=== PATIENT | male | born 1945 | race Caucasian/White ===

== ENCOUNTER 2018-11-03 11:33 | Inpatient (IN) ==
[~2018-11-03 11:33] MED LIST: NARCAN ONE
[2018-11-03] MEDS ORDERED: QUELICIN ONE (11:37)
[2018-11-03 12:09] LABS: URINE SOURCE CATH
[2018-11-03 12:21] LABS: ALLEN TEST YES; BE 14.6 mmoll (-3.0-3.0); BLOOD TYPE ARTERIAL; HCO3-(ACT) 36.3 mmoll (20.0-26.0); METHB 0.6 % (0.0-1.5); O2(CT) 17.6 mL/dL (15.0-23.0); O2HB 95.1 % (95.0-99.0); PO2(98.6) 95 mmHg (60-100); SAMPLE BLOOD; SAO2 97.5 % (95.0-100.0); SRATE 18 BPM; THB 13.1 g/dL (11.5-17.4); TVOL 500 mL
[2018-11-03 12:23] LABS: MODALITY VENTILATOR; PCO2(98.6) 92 mmHg (35-45)
[2018-11-03] MEDS ORDERED: DIPRIVAN 1% 1,000 MG/100 ML BOTTLE IV SCH (12:30)
[2018-11-03 12:31] LABS: BILIRUBIN URINE NEGATIVE (NEGATIVE); BLOOD URINE SMALL (NEGATIVE); COLOR YELLOW; GLUCOSE URINE NEGATIVE (NEGATIVE); KETONE URINE NEGATIVE (NEGATIVE); LEUKOCYTES URINE NEGATIVE (NEGATIVE); NITRITE URINE NEGATIVE (NEGATIVE); PROTEIN URINE 600 mg/dL (NEGATIVE); TURBIDITY URINE CLEAR (CLEAR); UROBILINOGEN URINE 2 mg/dL (NORMAL)
[2018-11-03 12:32] LABS: UR EPITHELIAL CELLS <10 /HPF (<10); URINE BACTERIA NEGATIVE /HPF; URINE RBC <10 /HPF (<10); URINE WBC <10 /HPF (<10)
[2018-11-03 12:32] LABS: INR 1.08; PROTIME 14.8 Seconds (11.0-16.0)
[2018-11-03 12:35] LABS: BASO# 0.02 X1000 (0.0-0.2); BASO% 0.2 % (0.0-0.8); HEMATOCRIT 46.8 % (42.0-52.0); HEMOGLOBIN 13.2 g/dL (14.0-18.0); IMM GRAN# 0.11 X1000 (0.0-0.04); IMM GRAN% 0.9 % (0.0-0.5); LYMPH# 0.39 X1000 (1.2-3.4); LYMPH% 3.2 % (20.5-51.1); MCH 30.1 PG (27-31); MCHC 28.2 g/dL (33-37); MCV 106.6 FL (81-99); MONO# 0.71 X1000 (0.11-0.59); MONO% 5.9 % (1.7-9.3); MPV 10.8 FL (7.4-10.4); NEUT# 10.82 X1000 (1.4-6.5); NEUT% 89.8 % (42.2-75.2); PLT 169 X1000 (130-400); RBC 4.39 XMIL (4.7-6.1); RDW 15.6 % (11.5-14.5); WBC 12.05 X1000 (4.8-10.8)
[2018-11-03 12:49] LABS: UR AMPHETAMINES QUAL NONE DETECTED (NONE DETECT); UR BARBITUATES QUAL NONE DETECTED (NONE DETECT); UR BENZODIAZEPIN QUAL NONE DETECTED (NONE DETECT); UR CANNABINOIDS QUAL NONE DETECTED (NONE DETECT); UR COCAINE QUAL NONE DETECTED (NONE DETECT); UR METHADONE QUAL NONE DETECTED (NONE DETECT); UR OPIATES QUAL NONE DETECTED (NONE DETECT); UR OXYCODONE QUAL NONE DETECTED (NONE DETECT); UR PCP QUAL NONE DETECTED (NONE DETECT)
--- NOTE | 2018-11-03 13:10 | Diag Imaging Result Doc PS360 ---
EXAM: CT HEAD W/O CONTRAST INDICATION: altered mental status TECHNIQUE: This exam was performed using automated exposure control, adjustment of mA or kV according to patient size, and/or use of iterative reconstruction technique. COMPARISON: None. FINDINGS: There is right frontal lobe encephalomalacia underlying a craniotomy defect. There are aneurysm clips at the base of the skull. There is no definite acute infarct given the limited sensitivity of CT versus MRI. There is no discrete intracranial mass, mass effect, or intracranial hemorrhage. There is minimal ethmoid sinus mucosal thickening. Surrounding soft tissues and bony structures are essentially unremarkable, otherwise. IMPRESSION: Chronic changes as described. No definite acute intracranial pathology. Electronically signed by Bob Sainz 11/03/2018 1:08 PM
--- NOTE | 2018-11-03 13:13 | Diag Imaging Result Doc PS360 ---
EXAM: CHEST/ABD TUBE PLACEMENT INDICATION: intubated patient TECHNIQUE: 2 views COMPARISON: 06/18/2016 FINDINGS: An ET tube is in place. The tip projecting over the trachea and above the beatrice at about the T3-4 level. There is also an NG tube in place. The tip projects below the diaphragm and is assumed to be in the lumen of the stomach in expected position. Central vasculature is prominent suggesting pulmonary venous congestion. There are also bilateral small effusions. No pneumothorax is identified. There is stable cardiomegaly. IMPRESSION: 1.ET tube and NG tube in place as described. 2.Suggestion of pulmonary venous congestion and bilateral small effusions. Electronically signed by Bob Sainz 11/03/2018 1:11 PM
[2018-11-03 14:18] LABS: ALB/GLOB RATIO 0.9; ALBUMIN 3.6 g/dL (3.5-5.0); CREATININE 1.2 mg/dL (0.7-1.2); MAGNESIUM 2.2 mg/dL (1.5-2.7); POTASSIUM 5.3 mmol/L (3.5-5.1); TOTAL BILIRUBIN 1.1 mg/dL (0.20-1.00); TOTAL PROTEIN 7.8 g/dL (6.3-8.3)
[2018-11-03] MEDS ORDERED: VANCOMYCIN 1 GM/NS 1 GM/250 ML IVPB IV ONE (14:46)
[2018-11-03] MEDS ORDERED: ZOSYN 3.375 GM in NS 50 ML IV ONE (14:46)
--- NOTE | 2018-11-03 14:46 | PROVIDER DOCUMENTATION ---
This chart was entered by Dipika Dacosta Scribe, acting as scribe for Julio Escudero MD. HPI-Critical Care - General Chief Complaint: Unresponsive Stated Complaint: unresponsive Time Seen by Provider: 11/03/18 11:45 Patient arrived via EMS?: Yes Source: EMS (first response) Allergies/Adverse Reactions: Allergies Allergy/AdvReac Type Severity Reaction Status Date / Time No Known Allergies Allergy Verified 06/05/16 14:15 Home Medications: Home Medication List Medication Instructions Recorded Confirmed Last Taken Type Albuterol Sulfate [Proair Hfa] 8.5 gm IH Q4H PRN PRN 09/22/15 08/17/16 06/05/16 08:00 History Atorvastatin Calcium [Lipitor] 20 mg PO QAM 09/22/15 08/17/16 08/17/16 06:30 History Cyanocobalamin (Vitamin B-12) 1,000 mcg IJ Q30D 09/22/15 08/17/16 08/16/16 08: 00 History [Cyanocobalamin Injection] Insulin Glargine [Lantus] 57 unit SUBQ QAM 09/22/15 08/17/16 08/17/16 History Insulin Lispro [Humalog] 20 unit SQ DIRECTED 09/22/15 08/17/16 08/17/16 06: 00 History Levothyroxine [Synthroid] 50 microgm PO DAILY 09/22/15 08/17/16 08/17/16 06:30 History Mometasone/Formoterol [Dulera 200 2 puff INH BID 09/22/15 08/17/16 08/17/16 06: 30 History Mcg/5 Mcg Inhaler] Montelukast Sodium 10 mg PO QAM 09/22/15 08/17/16 08/17/16 06:30 History Tiotropium [place] Inhaler 1 puff INH RTDAILY 09/22/15 08/17/16 08/17/16 06:30 History [Spiriva] Valacyclovir HCl [Valacyclovir] 500 mg PO DAILY 06/10/16 08/17/16 08/17/16 06: 30 History Bacitracin Oph Oint 3.5 gm IO PRN PRN 06/12/16 08/17/16 Unknown History Apixaban [Eliquis] 5 mg PO BID #60 tablet 06/22/16 08/17/16 Unknown Rx Digoxin [Lanoxin] 250 microgm PO DAILY #30 tablet 06/22/16 08/17/16 08/17/16 06: 30 Rx Diltiazem C.d. [Cardizem Cd] 240 mg PO DAILY #30 capsule 06/22/16 08/17/1608/17 06:30 Rx Docusate Sodium [Colace] 100 mg PO BID #60 capsule 06/22/16 08/17/16 08/17/16 06 :30 Rx Furosemide [Lasix] 20 mg PO BID #60 tablet 06/22/16 08/17/16 08/17/16 01:00 Rx Hydrocodone/APAP 5 mg/325 mg 1 each PO HS PRN PRN #30 tablet 06/22/16 08/17/16 Unknown Rx [[place]-5] Metoprolol Succinate E.r. [Toprol 25 mg PO BID #60 tablet 06/22/16 08/17/16 06:30 Rx Xl] Ramipril [Altace] 10 mg PO BID #60 capsule 06/22/16 08/17/16 08/17/16 06:30 Rx Aspirin/Calcium Carbonate/Mag 81 mg PO QAM #0 08/17/16 08/17/16 08/17/16 06:30 Rx [Aspirin Non Irrit 325 mg Tab] - History of Present Illness-Critical Care Nature of Presenting Problem: 73 yom presents via ems with cc of unresponsive. In early jason, spouse had to increase the Oxygen for patient who uses home O2 due to advanced copd. Later in the morning found pt unresponsive and called. EMS reported pt pupils were unequal. On arrival pt pupils were equally pinpoint and pt was obtunded.. 2mg narcan was admininstered on arrival by ed nurse without improvement Review of Systems - Adult - REVIEW OF SYSTEMS - ADULT ROS:: EMS Constitutional: reports: other (unresponsive) Eyes: reports: no symptoms reported Ears, Nose, Mouth & Throat: reports: no symptoms reported Cardiovascular: reports: no symptoms reported Respiratory: reports: no symptoms reported Gastrointestinal: reports: no symptoms reported Genitourinary: reports: no symptoms reported Musculoskeletal: reports: no symptoms reported Integumentary: reports: no symptoms reported Neurological: reports: other (unresponsive) Psychiatric: reports: no symptoms reported Endocrine: reports: no symptoms reported Hematologic/Lymphatic: reports: no symptoms reported Allergic/Immunologic: reports: no symptoms reported All Other Systems: Reviewed and Negative Past History - Adult - PAST MEDICAL HISTORY-ADULT Review of Records: reports: Nursing Assessment Review, Medications Reviewed Major Childhood Illnesses: reports: denies history Cardiovascular: reports: HTN, hyperlipidemia Endocrine/Immune: reports: Diabetes - IMMUNIZATION STATUS Childhood Immunizations: See Nurse Assessment Flu Vaccine: See Nurse Assessment - FAMILY HISTORY Family History: reviewed, not pertinent - SOCIAL HISTORY Smoking: other (n/a) Substance Use: other (unknown) Physical Exam-General - PHYSICAL EXAM-ADULT Initial Vital Signs Reviewed: Yes - CONSTITUTIONAL General Appearance: severe distress, obese, obtunded. negative: appears well, alert - EYES Eyes: other (pinpoint pupils) - RESPIRATORY Respiratory: other (decreased bs bilaterally) - CARDIOVASCULAR Cardiovascular: regular rate, rhythm - GASTROINTESTINAL (ABDOMEN) Abdominal Exam: normal bowel sounds, soft, no organomegaly, no pulsatile mass - MUSCULOSKELETAL Extremity: other (bilaterally 2+ edema lower extremeities) - SKIN Integumentary: other ( hyperpigmentation with induration in both legs related to chronic venous stasis) - NEUROLOGIC Neurologic: other (unresponsive) - PSYCHIATRIC Psych/Mental Status: other (unresponsive). negative: normal mood/affect, oriented x 3 Progress - PLAN OF CARE/RESULTS Progress/Plan/Lab Results: Vital Signs - 8 hr 11/03/18 11:32 11/03/18 11:43 11/03/18 12:06 Pulse Rate 105 H 112 H 102 H Respiratory Rate 24 16 34 H Blood Pressure 127/92 147/95 127/92 O2 Sat by Pulse Oximetry 98 100 96 11/03/18 12:16 Pulse Rate 102 H Respiratory Rate 25 H Blood Pressure O2 Sat by Pulse Oximetry 95 Laboratory Results - last 24 hr 11/03/18 11/03/18 11/03/18 11:50 11:50 11:50 WBC 12.05 H RBC 4.39 L Hgb 13.2 L Hct 46.8 MCV 106.6 H MCH 30.1 MCHC 28.2 L RDW Std Deviation 15.6 H Plt Count 169 MPV 10.8 H Immature Gran % (Auto) 0.9 H Neut % (Auto) 89.8 H Lymph % (Auto) 3.2 L George % (Auto) 5.9 Eos % (Auto) 0.0 Baso % (Auto) 0.2 Immature Gran # (Auto) 0.11 H Neut # (Auto) 10.82 H Lymph # (Auto) 0.39 L George # (Auto) 0.71 H Eos # (Auto) 0.00 Baso # (Auto) 0.02 PT 14.8 INR 1.08 PTT (Actin FS) 36.0 Specimen Type Sample Site pH pCO2 pO2 HCO3 Base Excess Oxyhemoglobin ABG O2 Sat (Calculated) ABG O2 Saturation ABG Carboxyhemoglobin ABG Methemoglobin Antony Test A-a O2 Difference Total Hemoglobin Lactate Blood Gas Modality Vent Mode Spontaneous Rate FiO2 % Tidal Volume PEEP Sodium Potassium Chloride Carbon Dioxide Anion Gap BUN Creatinine Estimated GFR/1.73 m2 BUN/Creatinine Ratio Glucose Calculated Osmolality Calcium Magnesium Total Bilirubin AST ALT Alkaline Phosphatase Ammonia Creatine Kinase Troponin T Awj-D-Jnsyavtwqee Pept Total Protein Albumin Globulin Albumin/Globulin Ratio Plasma Lactate 1.1 Urine Source Urine Color Urine Turbidity Urine pH Ur Specific [place] Urine Protein Ur Glucose (Stick) Ur Ketones (Stick) Urine Blood Urine Nitrite Urine Bilirubin Urobilinogen Dipstick Urine Leukocytes Urine WBC (Auto) Urine RBC (Auto) U Epithel Cells (Auto) Urine Bacteria (Auto) Urine Opiates Screen Ur Oxycodone Screen Ur Methadone, Qual Ur Barbiturates Screen Ur Phencyclidine Scrn Ur Amphetamines Screen U Benzodiazepines Scrn Urine Cocaine Screen U Cannabinoids Screen 11/03/18 11/03/18 11/03/18 11:50 11:50 12:00 WBC RBC Hgb Hct MCV MCH MCHC RDW Std Deviation Plt Count MPV Immature Gran % (Auto) Neut % (Auto) Lymph % (Auto) George % (Auto) Eos % (Auto) Baso % (Auto) Immature Gran # (Auto) Neut # (Auto) Lymph # (Auto) George # (Auto) Eos # (Auto) Baso # (Auto) PT INR PTT (Actin FS) Specimen Type Sample Site pH pCO2 pO2 HCO3 Base Excess Oxyhemoglobin ABG O2 Sat (Calculated) ABG O2 Saturation ABG Carboxyhemoglobin ABG Methemoglobin Antony Test A-a O2 Difference Total Hemoglobin Lactate Blood Gas Modality Vent Mode Spontaneous Rate FiO2 % Tidal Volume PEEP Sodium Potassium Chloride Carbon Dioxide Anion Gap BUN Creatinine Estimated GFR/1.73 m2 BUN/Creatinine Ratio Glucose Calculated Osmolality Calcium Magnesium Total Bilirubin AST ALT Alkaline Phosphatase Ammonia Creatine Kinase Troponin T 0.012 Qob-C-Ikmhhjroujt Pept 2106 H Total Protein Albumin Globulin Albumin/Globulin Ratio Plasma Lactate Urine Source CATH Urine Color YELLOW Urine Turbidity CLEAR Urine pH 6.0 Ur Specific [place] 1.020 Urine Protein 600 A Ur Glucose (Stick) NEGATIVE Ur Ketones (Stick) NEGATIVE Urine Blood SMALL A Urine Nitrite NEGATIVE Urine Bilirubin NEGATIVE Urobilinogen Dipstick 2 A Urine Leukocytes NEGATIVE Urine WBC (Auto) <10 Urine RBC (Auto) <10 U Epithel Cells (Auto) <10 Urine Bacteria (Auto) NEGATIVE Urine Opiates Screen Ur Oxycodone Screen Ur Methadone, Qual Ur Barbiturates Screen Ur Phencyclidine Scrn Ur Amphetamines Screen U Benzodiazepines Scrn Urine Cocaine Screen U Cannabinoids Screen 11/03/18 11/03/18 11/03/18 12:00 12:10 13:40 WBC RBC Hgb Hct MCV MCH MCHC RDW Std Deviation Plt Count MPV Immature Gran % (Auto) Neut % (Auto) Lymph % (Auto) George % (Auto) Eos % (Auto) Baso % (Auto) Immature Gran # (Auto) Neut # (Auto) Lymph # (Auto) George # (Auto) Eos # (Auto) Baso # (Auto) PT INR PTT (Actin FS) Specimen Type ARTERIAL Sample Site R RADIAL pH 7.30 L pCO2 92 H* pO2 95 HCO3 36.3 H Base Excess 14.6 H Oxyhemoglobin 95.1 ABG O2 Sat (Calculated) 17.6 ABG O2 Saturation 97.5 ABG Carboxyhemoglobin 1.90 ABG Methemoglobin 0.6 Antony Test YES A-a O2 Difference 147.0 Total Hemoglobin 13.1 Lactate 1.30 Blood Gas Modality VENTILATOR Vent Mode A/C Spontaneous Rate 18 FiO2 % 50.0 Tidal Volume 500 PEEP 5.0 Sodium 143 Potassium 5.3 H Chloride 92 L Carbon Dioxide 40 H Anion Gap 11 BUN 43 H Creatinine 1.2 Estimated GFR/1.73 m2 59 BUN/Creatinine Ratio 36 Glucose 198 H Calculated Osmolality 301 Calcium 10.0 Magnesium 2.2 Total Bilirubin 1.10 H AST 31 ALT 30 Alkaline Phosphatase 82 Ammonia Creatine Kinase 62 Troponin T Qym-X-Maqjqvsdvsc Pept Total Protein 7.8 Albumin 3.6 Globulin 4.2 Albumin/Globulin Ratio 0.9 Plasma Lactate Urine Source Urine Color Urine Turbidity Urine pH Ur Specific [place] Urine Protein Ur Glucose (Stick) Ur Ketones (Stick) Urine Blood Urine Nitrite Urine Bilirubin Urobilinogen Dipstick Urine Leukocytes Urine WBC (Auto) Urine RBC (Auto) U Epithel Cells (Auto) Urine Bacteria (Auto) Urine Opiates Screen NONE DETECTED Ur Oxycodone Screen NONE DETECTED Ur Methadone, Qual NONE DETECTED Ur Barbiturates Screen NONE DETECTED Ur Phencyclidine Scrn NONE DETECTED Ur Amphetamines Screen NONE DETECTED U Benzodiazepines Scrn NONE DETECTED Urine Cocaine Screen NONE DETECTED U Cannabinoids Screen NONE DETECTED 11/03/18 13:40 WBC RBC Hgb Hct MCV MCH MCHC RDW Std Deviation Plt Count MPV Immature Gran % (Auto) Neut % (Auto) Lymph % (Auto) George % (Auto) Eos % (Auto) Baso % (Auto) Immature Gran # (Auto) Neut # (Auto) Lymph # (Auto) George # (Auto) Eos # (Auto) Baso # (Auto) PT INR PTT (Actin FS) Specimen Type Sample Site pH pCO2 pO2 HCO3 Base Excess Oxyhemoglobin ABG O2 Sat (Calculated) ABG O2 Saturation ABG Carboxyhemoglobin ABG Methemoglobin Antony Test A-a O2 Difference Total Hemoglobin Lactate Blood Gas Modality Vent Mode Spontaneous Rate FiO2 % Tidal Volume PEEP Sodium Potassium Chloride Carbon Dioxide Anion Gap BUN Creatinine Estimated GFR/1.73 m2 BUN/Creatinine Ratio Glucose Calculated Osmolality Calcium Magnesium Total Bilirubin AST ALT Alkaline Phosphatase Ammonia 33 Creatine Kinase Troponin T Wdf-N-Sbqycqyfvbv Pept Total Protein Albumin Globulin Albumin/Globulin Ratio Plasma Lactate Urine Source Urine Color Urine Turbidity Urine pH Ur Specific [place] Urine Protein Ur Glucose (Stick) Ur Ketones (Stick) Urine Blood Urine Nitrite Urine Bilirubin Urobilinogen Dipstick Urine Leukocytes Urine WBC (Auto) Urine RBC (Auto) U Epithel Cells (Auto) Urine Bacteria (Auto) Urine Opiates Screen Ur Oxycodone Screen Ur Methadone, Qual Ur Barbiturates Screen Ur Phencyclidine Scrn Ur Amphetamines Screen U Benzodiazepines Scrn Urine Cocaine Screen U Cannabinoids Screen Orders Category Date Time Status CHEST/ABD TUBE PLACEMENT [RAD] Stat Exams 11/03/18 11:[address] HEAD W/O CONTRAST [CT] Stat Exams 11/03/18 12:11 Completed ABG [RESP] Routine Lab 11/03/18 12:10 Completed AMMONIA [CHEM] Stat Lab 11/03/18 13:40 Completed BLOOD CULTURE [BLDCUL] Stat Lab 11/03/18 12:15 Results CBC WITH ELECTRONIC DIFF [HEME] Stat Lab 11/03/18 11:50 Completed CK PROFILE [SP CHEM] Stat Lab 11/03/18 13:40 Completed COMPREHENSIVE METABOLIC PANEL [CHEM] Stat Lab 11/03/18 13:40 Completed LACTATE, PLASMA [CHEM] Stat Lab 11/03/18 11:50 Completed MAGNESIUM [CHEM] Stat Lab 11/03/18 13:40 Completed PRO B-NATRIURETIC PEPTIDE Stat Lab 11/03/18 11:50 Completed PT [PROTIME WITH INR] [COAG] Stat Lab 11/03/18 11:50 Completed PTT [COAG] Stat Lab 11/03/18 11:50 Completed TROPONIN T Stat Lab 11/03/18 11:50 Completed URINALYSIS W/POSS RFLX CULT [URINALYSIS] Stat Lab 11/03/18 12:00 Completed URINE DRUG SCREEN Stat Lab 11/03/18 12:00 Completed Propofol [Diprivan 1%] Med 11/03/18 12:15 Active 1,000 mg in 100 ml IV As Directed Propofol [Diprivan 1%] Med 11/03/18 12:30 Active 1,000 mg in 100 ml IV As Directed Succinylcholine [Quelicin] Med 11/03/18 11:37 Discontinued 200 mg .ROUTE .STK-MED ONE Ventilator Order Stat Oth 11/03/18 12:15 Active EKG [EKG] Stat Ther 11/03/18 11:51 Ordered Result Diagrams: 11/03/18 11:50 11/03/18 13:40 - CONSULTS/PCP/HOSPITALIST Notification #1 *Consult/PCP/Hospitalist*: INDIRA Potter/Dr. Sparks Time Discussed: 14:44 Consult Disposition: Admit Procedures - INTUBATION Time of Intubation: 11:50 Airway Evaluation: Abnormal 3-3-2 rule Mallampati Class: 3 Intubation Method: orotracheal Equipment: ETT Tube Size (cm): 8.0 Pretreated with 100% Oxygen?: Yes Breath Sounds after Intubation: equal ETT Primary Tube Confirmation: Capnometry CO2 Change, Direct Visualization, Chest Rise and Fall, Tube placement verified on XRAY Intubation Complications: no complications Vent Settings: See Respiratory Therapy Notes Departure - Departure Date of Disposition Decision: 11/03/18 Time of Disposition Decision: 14:45 DIAGNOSIS: Altered mental status Qualifiers: Altered mental status type: unspecified Qualified Code(s): R41.82 - Altered mental status, unspecified Acute respiratory failure Qualifiers: Respiratory failure complication: hypercapnia Qualified Code(s): J96.02 - Acute respiratory failure with hypercapnia Pneumonia Qualifiers: Pneumonia type: due to unspecified organism Laterality: unspecified laterality Lung location: unspecified part of lung Qualified Code(s): J18.9 - Pneumonia, unspecified organism Disposition: ADMITTED INPATIENT 09 Certified Medical Emergency: Emergent Condition: Critical - Critical Care Note This patient required my direct & personal management of CC.: Yes Attestation - Physician/ JAKOB Attestation Patient care was provided by Advanced Practice Provider:: No The physician spent face to face time with patient:: Yes Advanced Practice Provider documentation review:: Supervising physician onsite and consulted in the evaluation and care of this patient. The physician did have a face to face encounter with the patient. This chart was documented by the indicated scribe, (Dipika Dacosta Scribe) and accurately reflects the services I performed and decisions made by , Julio Escudero MD, as attested by the provider's signature.
[2018-11-03] MEDS: DUONEB (A & A) INH SCH ×3 (15:45→23:26)
--- NOTE | 2018-11-03 16:46 | HISTORY AND PHYSICAL ---
PRIMARY CARE PHYSICIAN: Dr. Yash aHys CHIEF COMPLAINT: Altered mental status. HISTORY OF PRESENT ILLNESS: Mr. Alexander is a 73-year-old male with multiple medical problems including chronic COPD on home O2 therapy, chronic respiratory failure , coronary artery disease, type 2 diabetes, bladder cancer, and others, who presents from home for unresponsiveness. At this time, the patient is intubated, unable to answer questions. His at the bedside states over the past few weeks, he has required more oxygen than normal. Apparently he is using 2 oxygen devices simultaneously, one oxygen generator at 2 to 3 L an hour and regular oxygen canister at 5 L an hour for a combination of 7 to 8 L per minute. He is supposed to be on home oxygen, but his states usually he is only on about 4 to 5 L. She has tried multiple times to get him to go follow up with Dr. Blum, his training and documentation specialist, or come to the ER, but the patient has essentially refused. Over the past few days, the patient has not even been able to really move without becoming significantly dyspneic. Last night, he went to sleep at the bedside table, I believe, or a desk, and this morning he was minimally responsive to verbal and painful stimulus. 911 was called. The states she believes his oxygen had come out at some point, unclear as to how long that had been off. When he got to the ER, he was promptly intubated for respiratory failure. His initial blood gas shows a pH of 7.3, with a CO2 of 92, which is the highest it has been on our records. Chest x-ray shows suggestion of pulmonary venous congestion and bilateral small effusions. His states there has been no fever or upper respiratory symptoms. No recent sick contacts, but he is fairly noncompliant with going to see the doctor. Given the critical nature of his illness, we are going to put him in the ICU. PAST MEDICAL HISTORY: 1. COPD on chronic oxygen therapy, although using much more than prescribed. 2. Chronic hypoxemic and hypercapnic respiratory failure. 3. Chronic atrial fibrillation. 4. History of intracranial bleeding per 's report. 5. Diastolic heart failure. 6. Coronary artery disease with stenting. 7. Morbid obesity. 8. Type 2 diabetes. 9. Chronic venous insufficiency. 10.Hyperlipidemia. 11.Hypertension. 12.Chronic anticoagulation therapy. 13. Cardiac thrombus PAST SURGICAL HISTORY: He has had coronary stenting, appendectomy, bladder surgery, brain surgery, tonsillectomy. SOCIAL HISTORY: He quit smoking some time ago. No current tobacco, alcohol, or drug use. REVIEW OF SYSTEMS: Unable to obtain. HOME MEDICATIONS: Yet to be compiled. PHYSICAL EXAMINATION: VITAL SIGNS: Blood pressure is 127/92, heart rate is 102, respiratory rate is 20, O2 saturation is 96% on 50% mechanical ventilation. Temperature not recorded. GENERAL: This is a morbidly obese male lying in hospital bed, intubated, in no acute distress. NEUROLOGICAL: He is currently not on sedation but opens his eyes to stimulus and follows commands. No focal deficits are noted. HEENT: Head is atraumatic and normocephalic. Pupils are equal, round and reactive to light. Oral mucosa is dry. ET tube noted. NECK: Trachea is midline. Neck is supple. No JVD. CHEST: Diminished throughout but essentially clear to auscultation. CARDIOVASCULAR: Irregular rate and rhythm. S1 and S2 noted. GASTROINTESTINAL: Abdomen is protuberant but nondistended. There is no rigidity. Bowel sounds are hypoactive. EXTREMITIES: Chronic venous insufficiency noted to both lower extremities. Skin is pale, dusky, and with diminished pulses. There is overall quite poor circulation noted. DIAGNOSTIC DATA: Head CT with chronic changes, nothing acute. Chest x-ray shows ET and NG tube in place, suggestion of pulmonary venous congestion and bilateral small effusions. WBC is 12, hemoglobin 13, hematocrit 46.8, MCV is 106.6, platelet count 169. INR is 1.08. The pH is 7.3, CO2 is 92, O2 is 95, bicarb 36.3. Sodium is 143, potassium 5.3, chloride 92, CO2 is 40, anion gap is 11, BUN is 43, creatinine 1.2, glucose 198. Total bilirubin is 1.1, transaminases within normal limits. Ammonia is 33. ProBNP is 2106. Lactic acid 1.1. UA is negative. Toxicology is negative. ASSESSMENT AND PLAN: 1. Acute on chronic hypercapnic and hypoxemic respiratory failure. Likely volume overload. Will continue with ventilator support. Will start IV lasix. Will consult the training and documentation specialist. Will also start broad spectrum antibiotics and follow the blood culture results. 2. Chronic atrial fibrillation. Aware. Will start full dose lovenox. Will check a digoxin level. 3. Type 2 diabetes. Add pattern sugars, sliding scale insulin, and check a hemoglobin A1c. 4. Coronary artery disease. We are checking an echocardiogram and cardiac enzymes, as the patient has not followed up with a physician in quite some time. 5. Acute on chronic diastolic heart failure. We will give him a little bit of Lasix as he does have what appears to be some volume overload. Follow strict I's and O's, daily weights, trend enzymes. 6. Macrocytic anemia. We will check iron studies and treat accordingly. 7. Severe COPD. Aware. Will start scheduled bronchodilator therapy. 8. DVT prophylaxis. Will start full dose lovenox 9. GI prophylaxis. Will start IV protonix. Further recommendations to follow. Critical care time was 1 hour. Dictated by BEBO Wiley for Ivelisse Sparks MD cc: BEBO Wiley MD I performed a face to face encounter on this patient. I reviewed all imaging and labs for the patient. I agree with the H&P as dictated The patient was brought to the ER in respiratory failure. Upon arrival, he was intubated and placed on the ventilator. A chest x ray was done that revealed pulmonary venous congestion and pleural effusions. On exam, the patient was sedated and intubated. His lung sounds were noted to be coarse bilaterally. The patient will be admitted to the MICU with a diagnosis of acute on chronic hypercapnic and hypoxemic respiratory failure secondary to pulmonary edema and possible pneumonia. Will also order blood and sputum cultures and start the patient on broad spectrum antibiotics and IV lasix. Will consult the training and documentation specialist for assistance with management. LUCY
[2018-11-03 16:51] LABS: IRON SATURATION 11 %; TIBC 385 ug/dL; TOTAL IRON 44 ug/dL (53-167); UNBOUND IRON 341 ug/dL (112-346)
[2018-11-03 17:11] LABS: FERRITIN 170 ng/mL (30-400)
--- NOTE | 2018-11-03 17:22 | Diag Imaging Result Doc PS360 ---
EXAM: CT THORAX W/O CONTRAST INDICATION: resp failure TECHNIQUE: This exam was performed using automated exposure control, adjustment of mA or kV according to patient size, and/or use of iterative reconstruction technique. COMPARISON: None. FINDINGS: There is groundglass opacity throughout both lungs indicating pulmonary edema. There is a moderate-sized left pleural effusion and a smaller right pleural effusion. There is dependent atelectasis bilaterally. There is cardiomegaly. An ET tube is in place. There is an NG tube passing below the diaphragm and into the stomach. There are shotty prominent mediastinal and hilar lymph nodes that are nonspecific, probably reactive. For reference, one of the largest lymph nodes is anterior to the distal trachea measuring approximately 2.3 x 1.6 cm axially. Limited views of the upper abdomen reveals diverticulosis involving a short segment of the visualized colon on the left. IMPRESSION: 1.Pulmonary edema and bilateral pleural effusions with adjacent atelectasis as described. 2.Nonspecific mild mediastinal and hilar lymphadenopathy. 3.Cardiomegaly. Electronically signed by Bob Sainz 11/03/2018 5:19 PM
[2018-11-03] MEDS: DIPRIVAN 1% 1,000 MG/100 ML BOTTLE IV SCH ×2 (17:25→21:06)
[2018-11-03] MEDS: HUMULIN R SUBQ SCH ×2 (17:29→20:56)
--- NOTE | 2018-11-03 17:51 | ED EKG INTERP ---
This chart was entered by Abiola Hannah Scribe, acting as scribe for Julio Escudero MD. EKG Interpretation - EKG Time of EKG reading by physician:: 14:49 EKG Read and Signed by:: Julio Escudero EKG Interpretation (*Must complete 3 of following elements*): Abnormal Rate: 85 Rhythm: atrial fibrillation Comments: incomplete RBBB; nonspecific T wave abnormality. Attestation - Physician/ JAKOB Attestation The physician spent face to face time with patient:: Yes Advanced Practice Provider documentation review:: Supervising physician onsite and consulted in the evaluation and care of this patient. The physician did have a face to face encounter with the patient. This chart was documented by the indicated scribe, (Abiola Hannah Scribe) and accurately reflects the services I performed and decisions made by Kena champagne Kofi X., MD, as attested by the provider's signature.
[2018-11-03] MEDS: MAXIPIME 1 GM in NS 50 ML IV SCH (17:55)
[2018-11-03] MEDS: LASIX IV SCH (17:55)
[2018-11-03] MEDS: ZYVOX 600 MG/D5W 600 MG/300 ML IVPB IV SCH (17:55)
[2018-11-03 18:09] LABS: ALLEN TEST YES; BE 16.5 mmoll (-3.0-3.0); BLOOD TYPE ARTERIAL; HCO3-(ACT) 37.7 mmoll (20.0-26.0); METHB 0.8 % (0.0-1.5); O2(CT) 15.5 mL/dL (15.0-23.0); O2HB 91.8 % (95.0-99.0); PO2(98.6) 57 mmHg (60-100); SAMPLE BLOOD; SAO2 93.9 % (95.0-100.0); SRATE 25 BPM; TVOL 500 mL; pH(98.6) 7.47 (7.35-7.45)
[2018-11-03 18:11] LABS: MODALITY VENTILATOR; PCO2(98.6) 59 mmHg (35-45)
[2018-11-03] MEDS ORDERED: HUMULIN R SUBQ SCH (21:00)
[2018-11-03] MEDS: LOVENOX SUBQ SCH (22:26)
[2018-11-03] MEDS ORDERED: LANOXIN IV ONE (23:17)
[2018-11-03] MEDS ORDERED: NS IV SCH (23:30)
[2018-11-03] MEDS ORDERED: CARDIZEM IV SCH (23:30)
[2018-11-03] MEDS: CARDIZEM 100 MG in NS 80 ML IV SCH (23:37)
[2018-11-04] MEDS: DIPRIVAN 1% 1,000 MG/100 ML BOTTLE IV SCH ×10 (00:48→23:49)
[2018-11-04] MEDS: DUONEB (A & A) INH SCH ×6 (03:31→22:56)
[2018-11-04 04:42] LABS: ALLEN TEST YES; BE 22.6 mmoll (-3.0-3.0); BLOOD TYPE ARTERIAL; HCO3-(ACT) 42.4 mmoll (20.0-26.0); METHB 0.5 % (0.0-1.5); O2(CT) 13.3 mL/dL (15.0-23.0); O2HB 91.3 % (95.0-99.0); PO2(98.6) 58 mmHg (60-100); SAMPLE BLOOD; SAO2 93.1 % (95.0-100.0); SRATE 12 BPM; THB 10.3 g/dL (11.5-17.4); TVOL 600 mL; pH(98.6) 7.51 (7.35-7.45)
[2018-11-04] MEDS: MAXIPIME 1 GM in NS 50 ML IV SCH ×2 (04:42→17:44)
[2018-11-04 04:44] LABS: MODALITY VENTILATOR; PCO2(98.6) 61 mmHg (35-45)
[2018-11-04] MEDS: ZYVOX 600 MG/D5W 600 MG/300 ML IVPB IV SCH ×2 (05:11→17:44)
[2018-11-04] MEDS: SODIUM CHLORIDE 0.9% INJ PRN (05:12)
[2018-11-04] MEDS: LASIX IV SCH (05:12)
[2018-11-04 05:19] LABS: ALB/GLOB RATIO 0.8; ALBUMIN 2.6 g/dL (3.5-5.0); DIRECT BILIRUBIN 0.2 mg/dL (0.00-0.20); TOTAL BILIRUBIN 1.02 mg/dL (0.20-1.00)
[2018-11-04 05:27] LABS: BASO# 0.01 X1000 (0.0-0.2); BASO% 0.1 % (0.0-0.8); EOS# 0.01 X1000 (0.0-0.7); EOS% 0.1 % (0.0-10.0); HEMATOCRIT 33.4 % (42.0-52.0); HEMOGLOBIN 10.3 g/dL (14.0-18.0); IMM GRAN# 0.02 X1000 (0.0-0.04); IMM GRAN% 0.2 % (0.0-0.5); LYMPH# 0.83 X1000 (1.2-3.4); LYMPH% 9.1 % (20.5-51.1); MCH 30.9 PG (27-31); MCHC 30.8 g/dL (33-37); MCV 100.3 FL (81-99); MPV 10.7 FL (7.4-10.4); NEUT% 78.5 % (42.2-75.2); PLT 142 X1000 (130-400); RBC 3.33 XMIL (4.7-6.1); RDW 15.4 % (11.5-14.5); WBC 9.17 X1000 (4.8-10.8)
[2018-11-04] MEDS: PROTONIX IV SCH (06:15)
[2018-11-04] MEDS: SYNTHROID IV SCH (06:15)
[2018-11-04] MEDS: SODIUM CHLORIDE 0.9% INJ SCH (06:16)
[2018-11-04] MEDS: HUMULIN R SUBQ SCH ×4 (06:16→22:06)
--- NOTE | 2018-11-04 06:28 | PULMONOLOGY CONSULTATION ---
DATE: 11/03/2018 REQUESTING PHYSICIAN: Ivelisse Sparks MD. REASON FOR CONSULTATION: Respiratory failure. HISTORY OF PRESENT ILLNESS: Mr. Alexander is a 73-year-old white male with severe COPD, chronic hypoxemic respiratory failure, and obesity, who was evaluated in my clinic, 11/30/2015. He had not followed up at 8 weeks as scheduled. By the nurse practitioner's report, he has been noncompliant with physician followup. Patient was found unresponsive by his this morning and brought to the emergency room. He was emergently intubated upon arrival. CT scan of the head was performed, which revealed chronic changes associated with prior cranial surgery, but no acute changes. CT scan of the thorax was performed which revealed cardiomegaly, pulmonary edema, small- to-moderate bilateral effusions, but nonspecific adenopathy. Arterial blood gas following intubation on 50% FIO2 revealed a pH of 7.30, pCO2 of 92, pO2 of 95. PAST MEDICAL HISTORY/PROBLEM LIST: 1. COPD with chronic hypoxemic respiratory failure. The patient was on 4 liters per nasal cannula at his visit in my office, 11/30/2015. 2. Morbid obesity. Patient's weight was 327 with a BMI of 46 at his office visit suggesting he has lost almost 60 lbs. 3. Diabetes mellitus. 4. Hyperlipidemia. 5. History of bladder cancer. 6. Status post cranial surgery for a cerebral aneurysm. 7. Hypothyroidism. 8. B12 deficiency. 9. Sleep apnea on CPAP (unknown compliance). 10.History of chronic venous insufficiency in the lower extremities. 11.Status post appendectomy. 12.History of basal cell skin cancer surgery. 13.Coronary artery disease with prior drug-eluting stents. 14.Bladder cancer in 2004. SOCIAL HISTORY: Patient has a [id number] history for tobacco without recent tobacco use. No alcohol use. He is retired from engineering. FAMILY HISTORY: Positive for coronary artery disease. Father from unknown causes. REVIEW OF SYSTEMS: Limited given presentation. PHYSICAL EXAM: Reveals an obese white male on mechanical ventilation. The nursing staff reports he did start to wake up and has required propofol for comfort and sedation. BP 126/73, heart rate 109, respiratory rate 21, oxygen saturation 98%. HEENT: Pupils are equal and reactive. Oropharynx is clear. He has cranial defects on the right consistent with prior craniotomy. Neck is supple. Chest reveals prolonged expiratory phase. Cardiac: S1, S2. Abdomen is obese and soft. Extremities reveal evidence of chronic renal insufficiency. LABORATORIES: Sodium 143, potassium 5.3, chloride 92, bicarbonate 40, BUN 43, creatinine 1.2, glucose 198. Folate 32.6, B12 1135. CT scan: As per HPI. Arterial blood gas at 1555: pH 7.47, pCO2 of 59, pO2 of 57. IMPRESSION: 1. A 73-year old with severe chronic obstructive pulmonary disease, obesity, who presents with acute hypoxemic respiratory failure. 2. Acute hypercapnic respiratory failure, with a history of chronic hypoxemic and chronic hypercapnic respiratory failure. 3. Pleural effusions. 4. Altered mental status. 5. Patient's presentation is most likely related to a chronic obstructive pulmonary disease exacerbation with a component of acute cor pulmonale. RECOMMENDATIONS: 1. Continue full ventilatory support. It is hoped over the next 48-72 hours, he will begin diuresing some excess fluid from his pleural space. 2. Routine bronchodilators. 3. Lovenox 40 mg q.12 hours. 4. Sputum for C and S. 5. Continue current antibiotics pending results of sputum cultures. 6. Routine gastric acid suppression. 7. Additional recommendations pending hospital course. TIME SPENT IN CRITICAL CARE: One hour. cc: MD Ivelisse Maynard MD
--- NOTE | 2018-11-04 07:13 | Diag Imaging Result Doc PS360 ---
EXAM: CHEST-PORTABLE 11/04/2018 HISTORY: dyspnea TECHNIQUE: AP portable at 0521 COMMENT: There is an endotracheal tube with its tip in the thoracic inlet. There is an NG tube with its tip below the diaphragm. There are bilateral pleural effusions. There is interstitial pulmonary edema. There is less optimal expansion of both lungs with possible atelectasis versus pneumonia in the left lower lobe. IMPRESSION: Pulmonary edema and pleural effusions. Questionable left lower lobe pneumonia. Electronically signed by Frank Jenkins 11/04/2018 7:11 AM
--- NOTE | 2018-11-04 07:21 | EKG Report ---
Test Performed on : 11/03/2018 2:49:03 PM Test Reason : altered mental status Blood Pressure : / mmHG Vent. Rate : 085 BPM Atrial Rate : 061 BPM P-R Int : 000 ms QRS Dur : 108 ms QT Int : 372 ms P-R-T Axes : 000 044 -11 degrees QTc Int : 442 ms Atrial fibrillation. Incomplete right bundle branch block Nonspecific T wave abnormality Abnormal ECG When compared with ECG of 17-AUG-2016 08:10, ST no longer depressed in Anterior leads T wave inversion no longer evident in Anterior leads Nonspecific T wave abnormality now evident in Lateral leads Unconfirmed Result
[2018-11-04] MEDS: CARDIZEM 100 MG in NS 80 ML IV SCH (08:12)
[2018-11-04 08:37] LABS: CALCIUM 8.9 mg/dL (8.8-10.2); CREATININE 1.3 mg/dL (0.7-1.2); POTASSIUM 4.5 mmol/L (3.5-5.1)
[2018-11-04] MEDS: LOVENOX SUBQ SCH ×2 (09:44→23:09)
--- NOTE | 2018-11-04 09:45 | PULMONOLOGY PROGRESS NOTE ---
DATE: 11/04/2018 SUBJECTIVE: The patient remains on mechanical ventilation. His oxygen requirements have increased. OBJECTIVE: Vital signs: The patient has been afebrile for the last 24 hours. Blood pressure 120/78, heart rate 97, respiratory rate 12, oxygen saturation 93%. HEENT: Pupils are equal and reactive. Oropharynx is clear. Neck: Supple. Chest: Reveals prolonged expiratory phase with decreased breath sounds in both lung bases. Cardiac: S1, S2, irregular rhythm. Abdomen: Obese and soft. Extremities: Without significant edema. LABORATORIES: Chest x-ray reveals bilateral pleural effusions with interstitial edema. Arterial blood gas reveals a pH of 7.51, pCO2 of 61, pO2 of 58. Chemistries: Sodium 145, potassium 4.5, chloride 94, bicarbonate 50, creatinine 1.3. Microbiology: Sputum cultures are pending. IMPRESSION: A 73-year-old with COPD, morbid obesity, acute hypercapnic respiratory failure, acute hypoxemic respiratory failure, pleural effusions, with acute cor pulmonale. The patient has diuresed approximately 1 L but has had an elevation in his BUN and creatinine. His diuretic dose will be decreased at least transiently to prevent acute renal injury. Hopefully, over the next 48- 72 hours his diuretic dose can be increased to facilitate mobilization of his pleural effusions. PLAN: 1. Continue full ventilatory support with sedation as needed for comfort. 2. Reduce diuretic dose until kidney function has improved. 3. Continue antibiotics pending results of sputum cultures. 4. Will initiate tube feeds to prevent protein calorie malnutrition. Time spent in critical care 30+ minutes. cc: Zac Blum MD
[2018-11-04] MEDS ORDERED: QUELICIN IV ONE (10:09)
[2018-11-04] MEDS ORDERED: NARCAN IV ONE (10:09)
--- NOTE | 2018-11-04 10:37 | EKG Report ---
Test Performed on : 11/03/2018 9:28:51 PM Test Reason : CCU. No order in [place] Blood Pressure : / mmHG Vent. Rate : 134 BPM Atrial Rate : 150 BPM P-R Int : 000 ms QRS Dur : 118 ms QT Int : 364 ms P-R-T Axes : 000 039 163 degrees QTc Int : 543 ms Atrial fibrillation. with rapid ventricular response. Incomplete right bundle branch block ST & T wave abnormality, consider anterolateral ischemia Abnormal ECG When compared with ECG of 03-NOV-2018 14:49, (Unconfirmed) Vent. rate has increased BY [address] now depressed in Anterior leads T wave inversion now evident in Anterior leads Confirmed by Jay GARCIA, Antony Ramsey ([id number]) on 11/04/2018 3:19:36 PM
--- NOTE | 2018-11-04 10:55 | PROGRESS NOTE ---
DATE: 11/04/2018 SUBJECTIVE: Patient is sedated and intubated. The patient, according to the nursing staff, is on Cardizem drip for chronic atrial fibrillation that have heart rate over 100. Currently, patient is receiving 10 mg per hour. No other issues noted. OBJECTIVE: Vital Signs: Temperature 97.6, heart rate 103, respiratory 14, blood pressure 117/69, O2 saturation 93% on mechanical ventilator. General: This is a chronically ill-looking 73-year- old male, lying in bed, in no acute distress. HEENT: Head is normocephalic, atraumatic. Mucous membranes dry. Patient intubated. Neck: No JVD noted. No carotid bruits. No lymphadenopathy. Cardiovascular: S1 and S2 heard, irregularly, irregular heart rhythm. No murmurs, gallops, or rubs. Respiratory: Decreased breath sounds globally with some coarse breath sounds in both pulmonary bases. Patient not using any accessory muscles or having work of breathing. Abdomen: Soft. A little bit distended. Nontender to palpation. No signs of peritoneal irritation. Bowel sounds hypoactive. Extremities: Signs of chronic venous insufficiency noted in both lower extremities. Peripheral pulses present but diminished. Neurological: Patient is sedated and intubated. LABORATORY DATA: White cell count. 9.17, hemoglobin 10.3, hematocrit 33.4, platelets 142,000. ABG shows pH 7.51, with pCO2 61, pO2 of 58, with a creatinine 1.3, chloride 94. ASSESSMENT AND PLAN: 1. Acute on chronic hypercapnic respiratory failure on ventilator. Patient continues to be on ventilator. FiO2 this morning is 50%. Dr. Blum, from Pulmonary, has been consulted. He has been started on tube feedings. Will continue with antibiotics until we have results of blood and sputum culture. One out of two blood cultures returned positive for gram- positive cocci. So, as we mentioned before, he is on Zyvox. Will continue with same management. 2. Chronic atrial fibrillation. Heart rate has been higher. So overnight, he has been started on Cardizem drip, and heart rate is under control. Patient also has been started on anticoagulation, in this case, Lovenox 1 mg/kg every 12 hours, as per Dr. Blum. We will continue with same management. 3. Diabetes mellitus type 2. We will continue with sliding scale insulin and Accu-Cheks before meals and also at bedtime. 4. Coronary artery disease. An echocardiogram has been ordered at admission. We will follow those results. In this case, 3 sets of troponins has been negative so far. 5. History of diastolic heart failure. Patient has received 1 dose of Lasix this morning and at this point, considering his worsening renal failure, will hold it and see how he does tomorrow. 6. Microcytic anemia. Aware. The anemia panel has been ordered and showed low iron with normal TIBC and ferritin that is normal. We will continue with the same medication. 7. Deep vein thrombosis prophylaxis. Patient is already on Lovenox 1 mg/kg every 12 hours. 8. Disposition. Depending upon clinical situation of the patient. We will continue to monitor this patient in the ICU. cc: Can Landis MD MTDD
--- NOTE | 2018-11-04 11:19 | ECHO REPORT ---
ORDER DATE: 11/03/2018 INDICATION: CHF and history of atrial thrombus. FINDINGS: 1. Right atrium is mildly enlarged at 4.5 cm. 2. There is mild tricuspid regurgitation. RV systolic pressure of 37. 3. Right ventricle was somewhat difficult to visualize, but appeared to have normal systolic function. 4. Trace pulmonic insufficiency. 5. Mild left atrial enlargement with a dimension of 4.6 cm. 6. No mitral prolapse. Mild mitral regurgitation. 7. Normal LV size, end-diastolic dimension of 5.3 cm. There is mild septal hypertrophy with a posterior and intraventricular septal thickness 1.1 and 1.3 cm respectively. Normal LV systolic function. Estimated EF of 60% with normal wall motion. 8. Aortic valve appears to open well two dimensionally. There is a mean gradient of 15 suggesting the possibility of minimal aortic stenosis. The valve is trileaflet. No clear evidence of insufficiency. 9. Aorta appears normal in visualized segments. 10. No pericardial effusion seen. cc: MD Ivelisse Banuelos MD
[2018-11-04 11:21] LABS: INR 1.24; PROTIME 16.6 Seconds (11.0-16.0)
[2018-11-04] MEDS ORDERED: NS 250 ML ONE (12:50)
--- NOTE | 2018-11-04 14:29 | Diag Imaging Result Doc PS360 ---
EXAM: CHEST-PORTABLE 11/04/2018 HISTORY: PICC placement TECHNIQUE: AP portable at 1420 COMMENT: There is an endotracheal tube with its tip slightly below the thoracic inlet and an NG tube with its tip below the diaphragm. There are bilateral pleural effusions more so on the left than the right. There is interstitial pulmonary edema. The pleural fluid volume on the right has improved since 11/04/2018 at 0521. There is a PICC line on the right with its tip in the superior vena cava. IMPRESSION: Improved right pleural effusion. Pulmonary edema. Electronically signed by Frank Jenkins 11/04/2018 2:27 PM
[2018-11-04] MEDS: CARDIZEM 100 MG/NS 100 MG/100 ML IVPB IV SCH (17:44)
[2018-11-05] MEDS: CARDIZEM 100 MG/NS 100 MG/100 ML IVPB IV SCH ×3 (00:08→12:18)
[2018-11-05] MEDS: DIPRIVAN 1% 1,000 MG/100 ML BOTTLE IV SCH ×9 (02:29→22:48)
[2018-11-05] MEDS: DUONEB (A & A) INH SCH ×6 (03:20→23:38)
[2018-11-05] MEDS: MAXIPIME 1 GM in NS 50 ML IV SCH ×2 (04:35→16:04)
[2018-11-05 05:08] LABS: ALLEN TEST YES; BLOOD TYPE ARTERIAL; HCO3-(ACT) 44.4 mmoll (20.0-26.0); METHB 0.3 % (0.0-1.5); O2(CT) 13.6 mL/dL (15.0-23.0); O2HB 96.5 % (95.0-99.0); PO2(98.6) 96 mmHg (60-100); SAMPLE BLOOD; SAO2 97.6 % (95.0-100.0); SRATE 8 BPM; THB 9.9 g/dL (11.5-17.4); TVOL 700 mL; pH(98.6) 7.48 (7.35-7.45)
[2018-11-05 05:11] LABS: MODALITY VENTILATOR; PCO2(98.6) 70 mmHg (35-45)
[2018-11-05] MEDS: ZYVOX 600 MG/D5W 600 MG/300 ML IVPB IV SCH ×2 (05:39→17:05)
[2018-11-05 05:48] LABS: BASO# 0.01 X1000 (0.0-0.2); BASO% 0.1 % (0.0-0.8); EOS# 0.14 X1000 (0.0-0.7); EOS% 1.7 % (0.0-10.0); HEMOGLOBIN 10.5 g/dL (14.0-18.0); LYMPH% 9.7 % (20.5-51.1); MCH 30.5 PG (27-31); MCHC 30.9 g/dL (33-37); MCV 98.8 FL (81-99); MONO# 0.78 X1000 (0.11-0.59); MONO% 9.4 % (1.7-9.3); MPV 10.7 FL (7.4-10.4); NEUT# 6.54 X1000 (1.4-6.5); NEUT% 79.1 % (42.2-75.2); PLT 128 X1000 (130-400); RBC 3.44 XMIL (4.7-6.1); RDW 15.9 % (11.5-14.5); WBC 8.27 X1000 (4.8-10.8)
[2018-11-05] MEDS: PROTONIX IV SCH (06:01)
[2018-11-05] MEDS: SODIUM CHLORIDE 0.9% INJ SCH (06:02)
[2018-11-05] MEDS: SODIUM CHLORIDE 0.9% INJ PRN (06:02)
[2018-11-05] MEDS: SYNTHROID IV SCH (06:02)
[2018-11-05 06:10] LABS: ESTIMATED GFR > 60
[2018-11-05 06:12] LABS: AGAP 8; ALB/GLOB RATIO 0.6; ALBUMIN 2.6 g/dL (3.5-5.0); ALKALINE PHOSPHATASE 58 U/L (32-122); BUN 36 mg/dL (8-22); CALCIUM 8.8 mg/dL (8.8-10.2); CHLORIDE 94 mmol/L (98-107); COSMO 301; CREATININE 1.1 mg/dL (0.7-1.2); GLUCOSE 203 mg/dL (70-104); GOT 20 U/L (10-34); GPT 17 U/L (10-44); MAGNESIUM 2.4 mg/dL (1.5-2.7); POTASSIUM 3.9 mmol/L (3.5-5.1); SODIUM 144 mmol/L (136-145); TCO2 42 mmol/L (25-35); TOTAL PROTEIN 6.8 g/dL (6.3-8.3)
[2018-11-05] MEDS: HUMULIN R SUBQ SCH ×5 (06:41→23:47)
--- NOTE | 2018-11-05 08:32 | Diag Imaging Result Doc PS360 ---
EXAM: CHEST-PORTABLE INDICATION: dyspnea TECHNIQUE: One view COMPARISON: 11/04/2018 FINDINGS: Support tubes and lines are in stable positions. Pulmonary edema and pulmonary venous congestion is approximately stable. There are stable bilateral effusions. No new consolidation is identified. Cardiac silhouette is stable. IMPRESSION: Grossly stable chest. Electronically signed by Bob Sainz 11/05/2018 8:30 AM
[2018-11-05] MEDS: LOVENOX SUBQ SCH ×2 (08:58→21:10)
[2018-11-05] MEDS ORDERED: LASIX IV SCH (09:00)
--- NOTE | 2018-11-05 10:56 | PROGRESS NOTE ---
DATE: 11/05/2018 SUBJECTIVE: Patient continues to be sedated and intubated. Continues to be according to nursing staff on Cardizem drip that he has been receiving 15 mg/hour, but now, he is requiring 10 mg/hour. No other issues noted. OBJECTIVE: Vital Signs: Temperature 98.7 degrees, heart rate 78, respiratory rate 20, blood pressure 132/71. O2 saturation 97% on mechanical ventilator at FiO2 of 50%. General Examination: This is a chronically ill-looking 73-year-old male, lying in bed, sedated and intubated. HEENT: Head is normocephalic, atraumatic. Mucous membranes dry. Neck: No carotid bruits. No lymphadenopathy. No thyromegaly. Cardiovascular: S1, S2 heard. Irregularly irregular. No murmurs gallops or rubs. Respiratory: Decreased breath sounds globally with minimal coarse breath sounds in both pulmonary bases. Patient is not using accessory muscles or having work of breathing. Abdomen: Soft, a little bit distended, but nontender to palpation. No signs of peritoneal irritation. Bowel sounds hypoactive. Extremities: There are signs of chronic venous insufficiency noted in both lower extremities with some purple discoloration as well. Peripheral pulses present, but diminished. Neurological: Patient is sedated and intubated. LABORATORY DATA: White cell count 8.27, hemoglobin 10.5, hematocrit 34, platelets 128,000 with ABG that shows pH 7.48 with pCO2 70, PO2 96. Creatinine 1.1. Total protein 2. ASSESSMENT AND PLAN: 1. Acute on chronic hypercapnic respiratory failure on ventilator. The patient continues to be on ventilator machine and CO2 is elevated today at 70. Dr. Blum from [facility] is following this patient. We will leave to him the management of ventilator settings. He has been started also on tube feedings. The Microbiology showed no culture 1/2 growing coagulase- negative Staphylococcus which is a contaminant. So, at this time we will continue with the same management. 2. Chronic atrial fibrillation. Heart rate started going higher since yesterday , so he continues to be on Cardizem drip. Also, patient is on Lovenox 1 mg/kg every 12 hours. We will continue with the management. 3. Diabetes mellitus type 2. Patient is on sliding scale insulin and also Accu- Cheks before meals and also at bedtime. 4. Coronary artery disease. Stable. Of course patient is not able to complain of any chest pain. There was an echocardiogram that has been ordered which basically showed ejection fraction of 60% with normal wall motion. There is also minimal aortic stenosis. No pericardial effusion seen. So, at this point, we will continue with same management. 5. History of diastolic heart failure. The x-ray from today showed grossly stable chest with pulmonary edema and pulmonary vascular congestion that are stable as well. Considering that his renal function is okay, we can provide another dose of Lasix and we will go from there. 6. Nutritional status, patient is receiving NG tube feedings. We will continue with the same management. 7. Microcytic anemia. Aware. We will continue to monitor CBC. 8. Deep vein thrombosis prophylaxis. Patient is already on Lovenox at therapeutic dosage. 9. Disposition we will continue to monitor this patient in the ICU. We will follow recommendations from Pulmonary. cc: Can Landis MD MTDD
--- NOTE | 2018-11-05 12:02 | PULMONOLOGY PROGRESS NOTE ---
DATE: 11/05/2018 SUBJECTIVE: The patient is sedated. He appears comfortable on mechanical ventilation. OBJECTIVE: The patient has been afebrile for the last 24 hours. Blood pressure is 153/72, heart rate 90, respiratory rate 10 to 16, oxygen saturation 100%. HEENT: Pupils are equal and sluggish. Oropharynx appears clear with endotracheal tube in place. Neck is supple. Chest reveals coarse rhonchi bilaterally. Cardiac: S1, S2. Irregular rhythm. Abdomen is obese and soft with positive bowel sounds. Extremities reveal chronic venous insufficiency. DIAGNOSTIC DATA: Chest x-ray reveals bilateral pleural effusions, pulmonary edema with vascular congestion, unchanged. Sodium is 144, potassium 3.9, chloride 94, bicarbonate level 42, BUN is 36, creatinine 1.1, glucose 203. Albumin 2.6. White blood count is 8.27, hemoglobin 10.5, platelet count 128,000. No new culture data. IMPRESSION: A 73 year old with COPD, morbid obesity, acute hypercapnic respiratory failure, acute hypoxemic respiratory failure, pleural effusions and acute cor pulmonale. The patient had an elevation in BUN after initial diuresis, but this is starting to improve. His blood pressure is also improving. He is tolerating tube feeds. PLAN: 1. Increase diuretic dosing. 2. Increase tube feeds. 3. Wean FiO2 as tolerated. 4. Continue Lovenox b.i.d. Time spent in critical care was 30 plus minutes. cc: Zac Blum MD
[2018-11-05] MEDS: LASIX IV SCH ×2 (13:53→21:10)
[2018-11-06] MEDS: DIPRIVAN 1% 1,000 MG/100 ML BOTTLE IV SCH ×7 (01:35→23:00)
[2018-11-06] MEDS: CARDIZEM 100 MG/NS 100 MG/100 ML IVPB IV SCH ×2 (01:37→19:28)
[2018-11-06] MEDS: DUONEB (A & A) INH SCH ×6 (03:35→23:18)
[2018-11-06] MEDS: MAXIPIME 1 GM in NS 50 ML IV SCH ×2 (04:13→16:24)
[2018-11-06] MEDS: HUMULIN R SUBQ SCH ×5 (04:14→20:06)
[2018-11-06 04:42] LABS: ALLEN TEST YES; BE 23.9 mmoll (-3.0-3.0); BLOOD TYPE ARTERIAL; HCO3-(ACT) 43.6 mmoll (20.0-26.0); METHB 0.9 % (0.0-1.5); O2(CT) 15.9 mL/dL (15.0-23.0); O2HB 96.4 % (95.0-99.0); PO2(98.6) 120 mmHg (60-100); SAMPLE BLOOD; SAO2 98.1 % (95.0-100.0); SRATE 8 BPM; THB 11.6 g/dL (11.5-17.4); TVOL 700 mL; pH(98.6) 7.46 (7.35-7.45)
[2018-11-06 04:43] LABS: MODALITY VENTILATOR
[2018-11-06 04:44] LABS: PCO2(98.6) 73 mmHg (35-45)
[2018-11-06 04:47] LABS: BASO# 0.01 X1000 (0.0-0.2); BASO% 0.1 % (0.0-0.8); EOS# 0.28 X1000 (0.0-0.7); EOS% 3.1 % (0.0-10.0); HEMATOCRIT 35.3 % (42.0-52.0); HEMOGLOBIN 10.7 g/dL (14.0-18.0); IMM GRAN# 0.02 X1000 (0.0-0.04); IMM GRAN% 0.2 % (0.0-0.5); LYMPH# 0.67 X1000 (1.2-3.4); LYMPH% 7.5 % (20.5-51.1); MCH 30.3 PG (27-31); MCHC 30.3 g/dL (33-37); MONO# 0.62 X1000 (0.11-0.59); MPV 10.5 FL (7.4-10.4); NEUT% 82.1 % (42.2-75.2); PLT 122 X1000 (130-400); RBC 3.53 XMIL (4.7-6.1)
[2018-11-06 05:08] LABS: ESTIMATED GFR > 60
[2018-11-06 05:17] LABS: AGAP 7; ALB/GLOB RATIO 0.6; ALBUMIN 2.7 g/dL (3.5-5.0); ALKALINE PHOSPHATASE 57 U/L (32-122); BUN 25 mg/dL (8-22); CALCIUM 8.2 mg/dL (8.8-10.2); CHLORIDE 93 mmol/L (98-107); COSMO 299; CREATININE 1.1 mg/dL (0.7-1.2); GLUCOSE 244 mg/dL (70-104); GOT 12 U/L (10-34); GPT 14 U/L (10-44); MAGNESIUM 2.4 mg/dL (1.5-2.7); POTASSIUM 3.9 mmol/L (3.5-5.1); SODIUM 144 mmol/L (136-145); TCO2 44 mmol/L (25-35); TOTAL PROTEIN 7.2 g/dL (6.3-8.3)
[2018-11-06] MEDS: LASIX IV SCH ×3 (05:45→17:01)
[2018-11-06] MEDS: ZYVOX 600 MG/D5W 600 MG/300 ML IVPB IV SCH ×2 (05:48→17:01)
[2018-11-06] MEDS: SODIUM CHLORIDE 0.9% INJ SCH (06:06)
[2018-11-06] MEDS: PROTONIX IV SCH (06:06)
[2018-11-06] MEDS: SODIUM CHLORIDE 0.9% INJ PRN (06:07)
[2018-11-06] MEDS: SYNTHROID IV SCH (06:07)
--- NOTE | 2018-11-06 07:24 | Diag Imaging Result Doc PS360 ---
EXAM: CHEST-PORTABLE 11/06/2018 HISTORY: dyspnea TECHNIQUE: AP portable at 0559 COMMENT: There are bilateral pleural effusions. There is an endotracheal tube with its tip at thoracic inlet. There is an NG tube which passes below the diaphragm. There is a right-sided PICC line. There is generalized interstitial pulmonary edema. Overall there has been no appreciable change since 11/05/2018. The quantity of pleural fluid on the right is slightly greater than on 11/04/2018. IMPRESSION: Pulmonary edema and pleural effusions. Electronically signed by Frank Jenkins 11/06/2018 7:20 AM
[2018-11-06] MEDS: LOVENOX SUBQ SCH ×2 (09:32→23:36)
--- NOTE | 2018-11-06 10:43 | PULMONOLOGY PROGRESS NOTE ---
DATE: 11/06/2018 SUBJECTIVE: The patient is sedated. He is comfortable on mechanical ventilation. OBJECTIVE: Vital signs: The patient has been afebrile for the last 24 hours. Blood pressure 114/63, heart rate 65, respiratory rate 20, oxygen saturation 100%. Intake 3049, output 4550. HEENT: Pupils are equal and reactive. Oropharynx appears clear but dry. Neck: Supple. Chest: Reveals prolonged expiratory phase with decreased breath sounds in the bases. Cardiac: S1, S2. Abdomen: Soft with positive bowel sounds. Extremities: Reveal trace to 1+ edema. LABORATORIES: Chest x-ray reveals endotracheal tube in good position with pulmonary edema and bilateral effusions. No significant change from 11/05/2018 but slight increase in effusion on the right. Laboratories: White blood count 8.9, hemoglobin 10.7, platelet count 122,000. Chemistry: Sodium 144, potassium 3.9, chloride 93, bicarbonate 24, BUN 25, creatinine 1.1. Arterial blood gas: pH 7.46, pCO2 of 73, pO2 of 120. IMPRESSION: A 73-year-old with COPD, morbid obesity, acute hypercapnic respiratory failure, acute hypoxemic respiratory failure, pleural effusions, and acute cor pulmonale. He is starting to diurese and his BUN has decreased. He is tolerating his tube feeds. PLAN: 1. Continue mechanical ventilation and wean FiO2 as tolerated. 2. Increase diuretic doses. 3. Increase tube feeds. 4. Continue Lovenox b.i.d. 5. Overall prognosis is guarded. Time spent in critical care 30+ minutes. cc: Zac Blum MD
[2018-11-06] MEDS ORDERED: STERILE WATER INJ. ONE ×2 (10:50→23:33)
[2018-11-06] MEDS: DIAMOX IV SCH ×2 (10:52→23:37)
[2018-11-07] MEDS: LASIX IV SCH ×4 (00:17→17:28)
[2018-11-07] MEDS: HUMULIN R SUBQ SCH ×6 (00:20→20:19)
[2018-11-07] MEDS: DIPRIVAN 1% 1,000 MG/100 ML BOTTLE IV SCH ×6 (02:53→21:09)
[2018-11-07] MEDS: DUONEB (A & A) INH SCH ×6 (03:12→22:59)
[2018-11-07] MEDS: MAXIPIME 1 GM in NS 50 ML IV SCH ×2 (04:43→16:16)
--- NOTE | 2018-11-07 04:56 | PROGRESS NOTE ---
DATE: 11/06/2018 SUBJECTIVE: The patient is currently sedated and intubated. Still on a Cardizem drip. PHYSICAL EXAMINATION: Vital Signs: Reviewed. He is afebrile. Heart rate stable. Respiratory rate 20. Blood pressure stable. General: The patient is currently on mechanical ventilation and sedated. HEENT: Normocephalic, atraumatic. Neck: Supple. No apparent JVD. No lymphadenopathy. Cardiovascular: Irregular rhythm, currently rate controlled. Chest: Decreased breath sounds bilaterally. No crackles. No wheezing. Extremities: Noted to have chronic venous insufficiency changes. No current ulcerations. No rashes. ASSESSMENT: 1. Jhxei-yn-seiffbe hypercapnic respiratory failure, currently on mechanical ventilation. 2. Chronic atrial fibrillation, currently on Cardizem drip, and is rate controlled. 3. Known coronary artery disease. 4. Type 2 diabetes. 5. Anemia of chronic disease. 6. Morbid obesity. 7. History of diastolic failure. PLAN: 1. We will continue ventilation, per Dr. Beavers. 2. Continue Cardizem drip, as well as Lovenox. 3. Will follow. cc: Itz Zheng MD
[2018-11-07 05:25] LABS: ALLEN TEST YES; BE 19.4 mmoll (-3.0-3.0); BLOOD TYPE ARTERIAL; HCO3-(ACT) 40.1 mmoll (20.0-26.0); METHB 0.6 % (0.0-1.5); O2(CT) 15.8 mL/dL (15.0-23.0); O2HB 96.5 % (95.0-99.0); PO2(98.6) 126 mmHg (60-100); SAMPLE BLOOD; SRATE 8 BPM; THB 11.5 g/dL (11.5-17.4); TVOL 700 mL; pH(98.6) 7.44 (7.35-7.45)
[2018-11-07 05:32] LABS: MODALITY VENTILATOR; PCO2(98.6) 69 mmHg (35-45)
[2018-11-07 05:43] LABS: HEMATOCRIT 35.1 % (42.0-52.0); HEMOGLOBIN 10.9 g/dL (14.0-18.0); MCH 31.6 PG (27-31); MCHC 31.1 g/dL (33-37); MCV 101.7 FL (81-99); MPV 11.1 FL (7.4-10.4); RBC 3.45 XMIL (4.7-6.1); RDW 16.1 % (11.5-14.5); WBC 8.68 X1000 (4.8-10.8)
[2018-11-07] MEDS: ZYVOX 600 MG/D5W 600 MG/300 ML IVPB IV SCH ×2 (05:47→17:28)
[2018-11-07 06:03] LABS: AGAP 11; ALB/GLOB RATIO 0.6; ALBUMIN 2.6 g/dL (3.5-5.0); ALKALINE PHOSPHATASE 66 U/L (32-122); BUN 21 mg/dL (8-22); CALCIUM 8.8 mg/dL (8.8-10.2); CHLORIDE 96 mmol/L (98-107); COSMO 296; ESTIMATED GFR > 60; GLUCOSE 169 mg/dL (70-104); GOT 15 U/L (10-34); GPT 16 U/L (10-44); MAGNESIUM 2.4 mg/dL (1.5-2.7); SODIUM 145 mmol/L (136-145); TCO2 38 mmol/L (25-35); TOTAL BILIRUBIN 0.68 mg/dL (0.20-1.00); TOTAL PROTEIN 6.9 g/dL (6.3-8.3)
[2018-11-07] MEDS: SYNTHROID IV SCH (06:45)
[2018-11-07] MEDS: PROTONIX IV SCH (06:51)
--- NOTE | 2018-11-07 07:02 | Diag Imaging Result Doc PS360 ---
EXAM: CHEST-PORTABLE HISTORY: dyspnea TECHNIQUE: Portable chest, single view COMPARISON: 11/06/2018 FINDINGS: Endotracheal and nasogastric tubes are unchanged. Small bilateral pleural effusions with basilar atelectasis. There is vascular distention similar to the prior study. No change in the right-sided PICC line. IMPRESSION: No interval improvement. Electronically signed by Reji Lea 11/07/2018 7:00 AM
--- NOTE | 2018-11-07 08:55 | PULMONOLOGY PROGRESS NOTE ---
DATE: 11/07/2018 SUBJECTIVE: The patient is sedated, but arousable. The patient has been afebrile for the last 24 hours. OBJECTIVE: Vital signs: Blood pressure 122/72, heart rate 97, respiratory rate 11, oxygen saturation 94%. HEENT: Pupils are equal and reactive. Oropharynx is clear. Neck: Supple. Chest: Reveals coarse rhonchi bilaterally. Cardiac exam: S1, S2. Irregular rhythm. Abdomen: Obese and soft with good bowel sounds. Extremities: Reveal trace edema with chronic vascular insufficiency. LABORATORIES/IMAGING: Chest x-ray reveals bibasilar effusions with atelectasis. No change control coordinator the last 24 hours. Arterial blood gas: A pH 7.44, pCO2 of 69, PO2 of 126. White blood count 8.68, hemoglobin 10.9, platelet count 132,000. Sodium 145, potassium 4.0, chloride 96, bicarbonate 38. BUN 21, creatinine 1.0. IMPRESSION: A 73 year old with chronic obstructive pulmonary disease, morbid obesity, acute hypercapnic respiratory failure, acute hypoxemic respiratory failure, bilateral pleural effusions and acute cor pulmonale. His urine output continues to improve and he is negative approximately 2 liters for the last 24 hours. His BUN and creatinine have both improved, even with diuresis. He remains marginal for extubation and mechanical ventilation will be continued as long as he is actively diuresing and pending improvement in chest x-ray. RECOMMENDATIONS: 1. Continue ventilatory support. Minor adjustments have been made in tidal volumes to decrease peak airway pressures. 2. Continue diuresis. 3. Continue tube feeds. 4. Continue DVT and gastric acid prophylaxis. Time spent in critical care management: 30+ minutes cc: Zac Blum MD [facility]
[2018-11-07] MEDS: LOVENOX SUBQ SCH ×2 (09:27→21:08)
[2018-11-07] MEDS: CARDIZEM 100 MG/NS 100 MG/100 ML IVPB IV SCH ×2 (11:03→20:45)
--- NOTE | 2018-11-07 12:22 | PROGRESS NOTE ---
DATE: 11/07/2017 SUBJECTIVE: Patient continues to be sedated and intubated. The patient continues to require Cardizem drip. At this point, he is requiring 10 mg per hour. No other issues noted. OBJECTIVE: Vital Signs: Temperature 98.8, heart rate 94, respiratory 16, blood pressure 135/76. O2 saturation 100% on mechanical ventilator at FiO2 of 40%. General: This is a chronically ill- looking, 73-year-old male, lying in bed, sedated and intubated. HEENT: Head is normocephalic and atraumatic. Mucous membranes dry. Patient intubated. Neck: No JVD noted. No carotid bruits. No lymphadenopathy. Cardiovascular: S1, S2 heard. Irregularly irregular. No murmurs, gallops, or rubs. Respiratory: Decreased breath sounds globally with some coarse breath sounds noted in both pulmonary bases. Patient is not using any accessory muscles or having work of breathing. Abdomen is soft and a little bit distended. No signs of peritoneal irritation. Bowel sounds hypoactive. Extremities: Some signs of chronic venous insufficiency in both lower extremities with some purple discoloration as well. Peripheral pulses present but diminished. Neurological: Patient is sedated and intubated. LABORATORY DATA: White cell count 8.68, hemoglobin 10.9, hematocrit 35.1, platelets 132 with ABG that showed a pH 7.44 with pCO2 of 69, PO2 of 126 and that is on the ventilator at FiO2 40% and with normal BMP. ASSESSMENT AND PLAN: 1. Vfymz-cn-ujkzxyh hypercapnic respiratory failure on ventilator. Patient continues to be requiring ventilatory support. FiO2 is 40%. He has been on 60% in the morning. At this point, we will continue following recommendations from Pulmonary regarding vent settings. We will continue with same management. 2. Chronic atrial fibrillation. This patient continues to require Cardizem drip with 10 mg per hour. Heart rate is well controlled. We will continue with the same management. 3. Diabetes mellitus, type 2. We will continue with sliding scale insulin and also Accu-Cheks before meals and also at bedtime. 4. Coronary artery disease, stable. We will continue with home medications. 5. History of diastolic heart failure. Currently, this patient has been started on Lasix 40 mg IV q [address] Blum from pulmonary. We will follow his recommendations. 6. Nutritional status. We will continue with NG tube feedings. 7. Microcytic anemia, aware. We will continue to monitor CBC. 8. Deep vein thrombosis prophylaxis. Patient is on Lovenox at therapeutic dosage. DISPOSITION: We will continue to monitor this patient here in the intensive care unit. cc: Can Landis MD
[2018-11-08] MEDS: LASIX IV SCH ×4 (00:24→17:01)
[2018-11-08] MEDS: DIPRIVAN 1% 1,000 MG/100 ML BOTTLE IV SCH ×4 (00:24→09:47)
[2018-11-08] MEDS: HUMULIN R SUBQ SCH ×6 (00:29→19:51)
[2018-11-08] MEDS: DUONEB (A & A) INH SCH ×6 (03:10→23:15)
[2018-11-08 04:15] LABS: ALLEN TEST YES; BE 17.1 mmoll (-3.0-3.0); BLOOD TYPE ARTERIAL; HCO3-(ACT) 38.3 mmoll (20.0-26.0); METHB 0.6 % (0.0-1.5); O2(CT) 16.1 mL/dL (15.0-23.0); O2HB 96.8 % (95.0-99.0); PCO2(98.6) 41 mmHg (35-45); PO2(98.6) 156 mmHg (60-100); SAMPLE BLOOD; SAO2 98.7 % (95.0-100.0); SRATE 8 BPM; THB 11.6 g/dL (11.5-17.4); TVOL 600 mL
[2018-11-08 04:16] LABS: MODALITY VENTILATOR
[2018-11-08] MEDS: MAXIPIME 1 GM in NS 50 ML IV SCH ×2 (04:20→17:01)
[2018-11-08 04:57] LABS: HEMATOCRIT 36.4 % (42.0-52.0); MCH 30.1 PG (27-31); MCHC 30.2 g/dL (33-37); MCV 99.7 FL (81-99); MPV 11.7 FL (7.4-10.4); RBC 3.65 XMIL (4.7-6.1); RDW 16.2 % (11.5-14.5); WBC 9.1 X1000 (4.8-10.8)
[2018-11-08 05:36] LABS: AGAP 10; ALBUMIN 2.7 g/dL (3.5-5.0); ALKALINE PHOSPHATASE 70 U/L (32-122); BUN 26 mg/dL (8-22); CALCIUM 8.9 mg/dL (8.8-10.2); CHLORIDE 94 mmol/L (98-107); COSMO 289; CREATININE 1.1 mg/dL (0.7-1.2); ESTIMATED GFR > 60; GLUCOSE 194 mg/dL (70-104); GOT 21 U/L (10-34); GPT 19 U/L (10-44); MAGNESIUM 2.6 mg/dL (1.5-2.7); POTASSIUM 4.1 mmol/L (3.5-5.1); SODIUM 140 mmol/L (136-145); TCO2 36 mmol/L (25-35); TOTAL PROTEIN 6.7 g/dL (6.3-8.3)
[2018-11-08] MEDS: SYNTHROID IV SCH (06:09)
[2018-11-08] MEDS: SODIUM CHLORIDE 0.9% INJ PRN (06:12)
[2018-11-08] MEDS: PROTONIX IV SCH (06:13)
[2018-11-08] MEDS: SODIUM CHLORIDE 0.9% INJ SCH (06:13)
[2018-11-08] MEDS: ZYVOX 600 MG/D5W 600 MG/300 ML IVPB IV SCH ×2 (06:13→17:01)
--- NOTE | 2018-11-08 06:55 | Diag Imaging Result Doc PS360 ---
EXAM: CHEST-PORTABLE HISTORY: Vent protocol TECHNIQUE: Portable chest single view COMPARISON: 11/07/2018 FINDINGS: Endotracheal and nasogastric tubes in good position. Heart remains enlarged. There is a vcjia-fs-trfjgayf sized left pleural effusion with basilar atelectasis versus underlying infiltrates. Pulmonary edema persists. Improved aeration in the right base. IMPRESSION: Mild interval improvement. Electronically signed by Reji Lea 11/08/2018 6:52 AM
[2018-11-08] MEDS: CARDIZEM 100 MG/NS 100 MG/100 ML IVPB IV SCH ×2 (06:58→17:01)
[2018-11-08] MEDS ORDERED: DIAMOX IV ONE (07:22)
[2018-11-08] MEDS: LOVENOX SUBQ SCH ×2 (09:44→19:52)
[2018-11-08 12:04] LABS: ALLEN TEST YES; BE 14.3 mmoll (-3.0-3.0); BLOOD TYPE ARTERIAL; HCO3-(ACT) 36.1 mmoll (20.0-26.0); METHB 0.2 % (0.0-1.5); O2(CT) 15.5 mL/dL (15.0-23.0); O2HB 96.9 % (95.0-99.0); PCO2(98.6) 49 mmHg (35-45); PO2(98.6) 168 mmHg (60-100); SAMPLE BLOOD; SAO2 98.8 % (95.0-100.0); THB 11.1 g/dL (11.5-17.4); pH(98.6) 7.51 (7.35-7.45)
[2018-11-08 12:05] LABS: MODALITY VENTILATOR
--- NOTE | 2018-11-08 12:06 | PROGRESS NOTE ---
DATE: 11/08/2018 SUBJECTIVE: Patient was seen to be sedated and intubated. Continues to require Cardizem drip about 10 mg per hour. No other issues noted. OBJECTIVE: Vital Signs: Temperature 97.8, heart rate 74, respiratory rate 23, blood pressure 126/75, O2 saturation 99% on mechanical ventilator. General examination: This is a 73-year-old male lying in bed in no acute distress. Cardiovascular exam: S1, S2 heard. Irregularly irregular. No murmurs, gallops, or rubs. Respiratory exam: Decreased breath sounds globally with some coarse breath sounds noted in both pulmonary bases. Patient not using any accessory muscles or having work of breathing. Abdomen: Soft and a little bit distended, but no signs of peritoneal irritation. Bowel sounds hypoactive. Extremities: Some signs of chronic venous insufficiency in both lower extremities with some purple discoloration as well. Peripheral pulses present, but diminished. Neurological exam: Patient is sedated and intubated. LABORATORY DATA: White cell count 9.1, hemoglobin 11.0, hematocrit 36.4, platelets 124. The pH is 7.6, pCO2 41, PO2 156. Normal BMP. ASSESSMENT AND PLAN: 1. Acute on chronic hypercapnic respiratory failure on ventilator. FiO2 is 40%. The patient continues to have good gas exchange with good oxygenation, but unfortunately he is breathing faster. The pH is elevated. At this point, I do not think we are going to do any breathing trial. We will continue to monitor this patient. 2. Chronic atrial fibrillation. We will continue to require Cardizem drip at 10 mg per hour. We will continue to monitor the patient closely. 3. Diabetes mellitus type 2. We will continue with sliding scale insulin and Accu-Cheks before meals and also at bedtime. 4. Coronary artery disease is stable. No chest pain noted. We will continue with home medication. 5. History of diastolic heart failure. Patient continues to be on Lasix intravenous every [address] Blum's recommendation. We will continue to monitor. 6. Microcytic anemia. Aware. DISPOSITION: We will continue to monitor this patient closely. We will follow recommendations from Pulmonary. cc: Can Landis MD
[2018-11-09] MEDS: LASIX IV SCH ×4 (00:44→17:57)
[2018-11-09] MEDS: HUMULIN R SUBQ SCH ×5 (02:28→17:56)
[2018-11-09] MEDS: LOVENOX SUBQ SCH ×2 (03:11→09:39)
[2018-11-09] MEDS: DUONEB (A & A) INH SCH ×6 (03:14→23:19)
[2018-11-09 04:47] LABS: ALLEN TEST YES; BE 15.2 mmoll (-3.0-3.0); BLOOD TYPE ARTERIAL; HCO3-(ACT) 36.8 mmoll (20.0-26.0); O2(CT) 15.4 mL/dL (15.0-23.0); O2HB 96.8 % (95.0-99.0); PO2(98.6) 95 mmHg (60-100); SAMPLE BLOOD; SAO2 100.5 % (95.0-100.0); THB 11.2 g/dL (11.5-17.4); pH(98.6) 7.45 (7.35-7.45)
[2018-11-09 04:48] LABS: MODALITY BI PAP; PCO2(98.6) 60 mmHg (35-45)
[2018-11-09] MEDS: MAXIPIME 1 GM in NS 50 ML IV SCH ×2 (05:04→17:56)
[2018-11-09] MEDS: SYNTHROID IV SCH ×2 (05:51→06:41)
[2018-11-09] MEDS: PROTONIX IV SCH ×2 (05:52→06:41)
[2018-11-09] MEDS: ZYVOX 600 MG/D5W 600 MG/300 ML IVPB IV SCH ×2 (05:52→17:56)
[2018-11-09 06:36] LABS: HEMATOCRIT 37.1 % (42.0-52.0); HEMOGLOBIN 11.4 g/dL (14.0-18.0); MCH 30.7 PG (27-31); MCHC 30.7 g/dL (33-37); MPV 10.8 FL (7.4-10.4); RBC 3.71 XMIL (4.7-6.1); RDW 15.9 % (11.5-14.5); WBC 8.78 X1000 (4.8-10.8)
--- NOTE | 2018-11-09 07:02 | Diag Imaging Result Doc PS360 ---
EXAM: CHEST-PORTABLE 11/09/2018 HISTORY: Vent protocol TECHNIQUE: AP portable at 0609 COMMENT: There is cardiomegaly. There is interstitial pulmonary edema. The NG tube and endotracheal tube which were present on 11/08/2018 have been removed. The PICC line on the right remains. There has been some improvement in the opacity in the left lower lobe since the previous study. IMPRESSION: Pulmonary edema. Slightly improved atelectasis or pneumonia left lower lobe. Electronically signed by Frank Jenkins 11/09/2018 7:00 AM
[2018-11-09 07:12] LABS: AGAP 11; ALB/GLOB RATIO 0.7; ALBUMIN 3.1 g/dL (3.5-5.0); ALKALINE PHOSPHATASE 72 U/L (32-122); BUN 26 mg/dL (8-22); CALCIUM 9.2 mg/dL (8.8-10.2); CHLORIDE 96 mmol/L (98-107); COSMO 294; ESTIMATED GFR > 60; GLUCOSE 172 mg/dL (70-104); GOT 20 U/L (10-34); GPT 21 U/L (10-44); POTASSIUM 3.8 mmol/L (3.5-5.1); SODIUM 143 mmol/L (136-145); TCO2 36 mmol/L (25-35); TOTAL BILIRUBIN 0.81 mg/dL (0.20-1.00); TOTAL PROTEIN 7.3 g/dL (6.3-8.3)
--- NOTE | 2018-11-09 11:56 | PROGRESS NOTE ---
DATE: 11/09/2018 SUBJECTIVE: The patient has been successfully extubated last afternoon. Today when I went to see him, he was able to have a good conversation, coherent speech. Reports some pain all over because he has being in the bed for few days. No other complaints noted. No shortness of breath. OBJECTIVE: Vital Signs: Temperature 99 degrees, heart rate 100, respiratory rate 26, blood pressure 150/76, O2 saturation 95% on 5 L nasal cannula. General: This is a chronically ill- looking, 73-year-old male, lying in bed, in no acute distress. HEENT: Head is normocephalic, atraumatic. Neck: No JVD noted. No carotid bruits. No lymphadenopathy. No thyromegaly. Cardiovascular: S1, S2 heard. Irregularly irregular. No murmurs, gallops, or rubs. Respiratory: Decreased breath sounds globally. Still some coarse breath sounds present in both pulmonary bases. The patient is not using any accessory muscles or having work of breathing. Abdomen: Soft, a little bit distended but nontender to palpation. Bowel sounds present. No organomegaly. Extremity: Signs of chronic venous insufficiency in both lower extremities and some purple discoloration as well but peripheral pulses present in both legs. Neurological: Patient is alert and oriented x2. LABORATORY DATA: White cell count 8.78, hemoglobin 11.4, hematocrit 37.1, platelets 152,000. ABG shows pH 7.45, with pCO2 60, pO2 95. BMP unremarkable except glucose 172. ASSESSMENT/PLAN: 1. Acute on chronic hypercapnic respiratory failure. Patient has been successfully extubated yesterday. He is on 5 L of oxygen by nasal cannula. He is not short of breath. He reports feeling better. At this point, we will continue with breathing treatments. 2. Chronic atrial fibrillation. He continues to require a Cardizem drip at 10 mg per hour. Now, that he has been extubated, I think we can restart home medications. In this case, is digoxin, Cardizem CD, and metoprolol. We are going to talk with the to confirm his medications and then will reconfirm most likely tomorrow. We will need to requiring Cardizem drip. 3. Diabetes mellitus, type 2. We will continue with sliding scale insulin and Accu-Cheks before meals and also at bedtime. 4. Coronary artery disease. Patient is not complaining of any chest pain. We will continue with same medications. 5. History of diastolic heart failure. Aware. 6. Microcytic anemia. Aware. Hemoglobin is stable. DISPOSITION: At this point, we are going to keep this patient 1 more day in the intensive care unit. We will advance his diet as tolerated. Will start physical therapy. If he is doing fine, we will transfer him out of the intensive care unit tomorrow. cc: Can Landis MD
[2018-11-09] MEDS: LANOXIN PO SCH (13:35)
[2018-11-09] MEDS: CARDIZEM 100 MG/NS 100 MG/100 ML IVPB IV SCH (13:44)
[2018-11-09] MEDS ORDERED: CALMOSEPTINE OINTMENT TOP PRN (14:24)
[2018-11-09] MEDS: COLACE PO SCH (20:31)
[2018-11-09] MEDS: TOPROL XL PO SCH (20:31)
[2018-11-09] MEDS: ELIQUIS PO SCH (20:31)
[2018-11-09] MEDS: ALTACE PO SCH (20:32)
[2018-11-10] MEDS: LASIX IV SCH ×4 (00:30→17:33)
[2018-11-10] MEDS: HUMULIN R SUBQ SCH ×7 (00:31→22:26)
[2018-11-10] MEDS: DULERA 200 MCG/5 MCG INHALER INH SCH ×3 (02:17→23:50)
[2018-11-10] MEDS: DUONEB (A & A) INH SCH ×6 (03:21→23:59)
[2018-11-10] MEDS: MAXIPIME 1 GM in NS 50 ML IV SCH ×2 (04:29→16:24)
[2018-11-10] MEDS: ZYVOX 600 MG/D5W 600 MG/300 ML IVPB IV SCH ×2 (05:12→17:33)
[2018-11-10 05:23] LABS: ALLEN TEST YES; BE 11.6 mmoll (-3.0-3.0); BLOOD TYPE ARTERIAL; HCO3-(ACT) 33.9 mmoll (20.0-26.0); METHB 1.7 % (0.0-1.5); O2(CT) 17.3 mL/dL (15.0-23.0); O2HB 93.9 % (95.0-99.0); PO2(98.6) 95 mmHg (60-100); SAMPLE BLOOD; SAO2 97.6 % (95.0-100.0); pH(98.6) 7.41 (7.35-7.45)
[2018-11-10 05:26] LABS: MODALITY CANNULA; PCO2(98.6) 61 mmHg (35-45)
[2018-11-10 06:01] LABS: HEMATOCRIT 37.8 % (42.0-52.0); MCH 31.1 PG (27-31); MCHC 31.7 g/dL (33-37); MCV 97.9 FL (81-99); RBC 3.86 XMIL (4.7-6.1); RDW 15.2 % (11.5-14.5); WBC 8.15 X1000 (4.8-10.8)
[2018-11-10] MEDS: SYNTHROID PO SCH (06:12)
[2018-11-10] MEDS: PROTONIX IV SCH (06:12)
[2018-11-10 06:15] LABS: AGAP 8; ALB/GLOB RATIO 0.8; ALBUMIN 3.2 g/dL (3.5-5.0); ALKALINE PHOSPHATASE 74 U/L (32-122); BUN 28 mg/dL (8-22); CALCIUM 8.7 mg/dL (8.8-10.2); CHLORIDE 96 mmol/L (98-107); COSMO 289; CREATININE 1.1 mg/dL (0.7-1.2); ESTIMATED GFR > 60; GLUCOSE 181 mg/dL (70-104); GOT 24 U/L (10-34); GPT 27 U/L (10-44); POTASSIUM 3.6 mmol/L (3.5-5.1); SODIUM 140 mmol/L (136-145); TCO2 36 mmol/L (25-35); TOTAL BILIRUBIN 0.97 mg/dL (0.20-1.00); TOTAL PROTEIN 7.3 g/dL (6.3-8.3)
[2018-11-10] MEDS: BASAGLAR SUBQ SCH (08:33)
[2018-11-10] MEDS: ALTACE PO SCH ×2 (08:34→21:53)
[2018-11-10] MEDS: LANOXIN PO SCH (08:35)
[2018-11-10] MEDS: TOPROL XL PO SCH ×2 (08:35→21:53)
[2018-11-10] MEDS: COLACE PO SCH ×2 (08:35→21:52)
[2018-11-10] MEDS: ELIQUIS PO SCH ×2 (08:35→21:53)
[2018-11-10] MEDS: SINGULAIR PO SCH (08:35)
[2018-11-10] MEDS: ASPIRIN PO SCH (08:35)
[2018-11-10] MEDS: CARDIZEM PO SCH ×3 (10:35→21:53)
--- NOTE | 2018-11-10 11:40 | PROGRESS NOTE ---
DATE: 11/10/2018 SUBJECTIVE: The patient is breathing better. His voice is much better. He is still requiring a Cardizem drip at 5 mg per hour. OBJECTIVE: Vital Signs: Temperature 98.1 degrees, heart rate 91, respiratory rate 22, blood pressure 127/66, O2 saturation 98% on 4 L nasal cannula. General Examination: This is a chronically ill-looking, 73-year-old, male, lying in bed, in no acute distress. Cardiovascular Examination: S1 and S2 heard. Irregularly irregular and tachycardic but no murmurs, gallops, or rubs. Respiratory Examination: Decreased breath sounds globally with some coarse breath sounds in both pulmonary bases. Patient is not using any accessory muscles or having work of breathing. Abdomen: Soft. Nontender to palpation. Bowel sounds present. No organomegaly noted. Extremities: Signs of chronic venous insufficiency in both lower extremities and some purple discoloration as well but peripheral pulses are present in both legs. Neurological Examination: The patient is alert and oriented x3. Moves 4 extremities. Laboratory Data: White cell count 8.15, hemoglobin 12.0, hematocrit 37.8, platelets 165,000. ABG shows pH 7.41 with pCO2 61, PO2 95. Normal BMP. ASSESSMENT AND PLAN: 1. Acute on chronic hypercapnic respiratory failure. Currently, the patient is breathing fine and requiring 4 L of oxygen by nasal cannula, which is what he requires at home. At this point, we will continue with breathing treatments and we will go from there. 2. Chronic atrial fibrillation. Unfortunately, this patient continues to require a Cardizem drip. He has been restarted on home medications; in this case, metoprolol and digoxin, and Cardizem is going to be provided 60 mg every 6 hours, and see how he does. Hopefully, we can stop the Cardizem drip today. 3. Diabetes mellitus type 2. We will continue with sliding scale insulin, and Accu-Chek before meals and also at bedtime. 4. Coronary artery disease, is stable. Not complaining of any chest pain. 5. History of diastolic heart failure. Aware. 6. Microcytic anemia. Hemoglobin is stable. 7. Disposition. At this point, the only thing that is keeping this patient in the unit is a Cardizem drip. As soon as we are able to stop it, we will send him to a regular floor and physical therapy will start working with him. cc: Can Landis MD
[2018-11-10] MEDS: SPIRIVA INH SCH (11:54)
[2018-11-10] MEDS: VALTREX PO SCH (12:45)
[2018-11-10] MEDS: LIPITOR PO SCH (21:53)
[2018-11-10] MEDS: TYLENOL PO PRN (23:34)
[2018-11-11] MEDS: LASIX IV SCH ×4 (00:49→17:01)
[2018-11-11] MEDS: HUMULIN R SUBQ SCH ×7 (00:54→20:34)
[2018-11-11] MEDS: DUONEB (A & A) INH SCH ×6 (03:35→23:00)
[2018-11-11] MEDS: MAXIPIME 1 GM in NS 50 ML IV SCH ×3 (03:35→16:53)
[2018-11-11] MEDS: CARDIZEM PO SCH ×4 (03:36→20:34)
[2018-11-11 05:04] LABS: ALLEN TEST YES; BE 10.1 mmoll (-3.0-3.0); BLOOD TYPE ARTERIAL; HCO3-(ACT) 32.6 mmoll (20.0-26.0); METHB 0.6 % (0.0-1.5); O2(CT) 17.4 mL/dL (15.0-23.0); PO2(98.6) 61 mmHg (60-100); SAMPLE BLOOD; SAO2 93.4 % (95.0-100.0); THB 13.6 g/dL (11.5-17.4); pH(98.6) 7.39 (7.35-7.45)
[2018-11-11 05:06] LABS: MODALITY CANNULA
[2018-11-11 05:09] LABS: PCO2(98.6) 62 mmHg (35-45)
[2018-11-11] MEDS: PROTONIX IV SCH (05:34)
[2018-11-11] MEDS: SYNTHROID PO SCH (05:34)
[2018-11-11] MEDS: ZYVOX 600 MG/D5W 600 MG/300 ML IVPB IV SCH ×2 (05:39→17:27)
[2018-11-11 06:35] LABS: MCV 97.9 FL (81-99)
[2018-11-11 07:17] LABS: AGAP 11; ALB/GLOB RATIO 0.7; ALBUMIN 3.2 g/dL (3.5-5.0); ALKALINE PHOSPHATASE 80 U/L (32-122); BUN 29 mg/dL (8-22); CALCIUM 9.6 mg/dL (8.8-10.2); CHLORIDE 95 mmol/L (98-107); COSMO 287; CREATININE 1.1 mg/dL (0.7-1.2); ESTIMATED GFR > 60; GLUCOSE 170 mg/dL (70-104); GOT 34 U/L (10-34); GPT 36 U/L (10-44); POTASSIUM 3.7 mmol/L (3.5-5.1); SODIUM 139 mmol/L (136-145); TCO2 33 mmol/L (25-35); TOTAL BILIRUBIN 0.76 mg/dL (0.20-1.00); TOTAL PROTEIN 7.6 g/dL (6.3-8.3)
[2018-11-11 07:48] LABS: HEMATOCRIT 42.5 % (42.0-52.0); HEMOGLOBIN 12.9 g/dL (14.0-18.0); MCH 29.7 PG (27-31); MCHC 30.4 g/dL (33-37); RBC 4.34 XMIL (4.7-6.1); WBC 8.08 X1000 (4.8-10.8)
[2018-11-11] MEDS: DULERA 200 MCG/5 MCG INHALER INH SCH ×2 (08:10→20:05)
[2018-11-11] MEDS: SPIRIVA INH SCH (08:34)
[2018-11-11] MEDS: ALTACE PO SCH ×2 (10:33→20:34)
[2018-11-11] MEDS: ELIQUIS PO SCH ×2 (10:33→20:34)
[2018-11-11] MEDS: TOPROL XL PO SCH ×2 (10:33→20:34)
[2018-11-11] MEDS: LANOXIN PO SCH (10:34)
[2018-11-11] MEDS: ASPIRIN PO SCH (10:35)
[2018-11-11] MEDS: SINGULAIR PO SCH (10:36)
[2018-11-11] MEDS: VALTREX PO SCH (10:36)
[2018-11-11] MEDS: COLACE PO SCH ×2 (10:37→20:34)
[2018-11-11] MEDS: BASAGLAR SUBQ SCH (10:37)
[2018-11-11] MEDS ORDERED: INSULIN PEN NEEDLES ONE (10:52)
--- NOTE | 2018-11-11 12:55 | PROGRESS NOTE ---
DATE: 11/11/2018 SUBJECTIVE: Patient reports feeling better. He is not complaining of any chest pain with shortness of breath. OBJECTIVE: Vital Signs: Temperature 98.7, heart rate 89, respiratory rate 20, blood pressure 133/63, O2 saturation 95% on nasal cannula at 4 L/minute. General Examination: This is a chronically ill-looking, 73-year-old, male, lying in bed, in no acute distress. Cardiovascular: S1, S2 heard. Irregularly irregular heart rhythm. No murmurs, gallops, or rubs. Respiratory: Decreased breath sounds globally. Some coarse breath sounds still noted in both pulmonary bases, but patient is not using any accessory muscles or having work of breathing. Abdomen: Soft, nontender to palpation. Bowel sounds present. No organomegaly. Extremities: Signs of chronic venous insufficiency in both lower extremities and some purple discoloration as well. Peripheral pulses present in both legs though. Neurological: Patient is alert and oriented x3. Moves 4 extremities. LABORATORY DATA: White cell count 8.08, hemoglobin 12.9, hematocrit 42.5, platelets 201. PH 7.39 with pCO2 of 62, pO2 of 61. Normal BMP. ASSESSMENT AND PLAN: 1. Acute on chronic hypercapnic respiratory failure. Currently, the patient is requiring 4 L of oxygen by nasal cannula, which is the same amount of oxygen that he requires at home. At this point, we will continue with same management. 2. Chronic atrial fibrillation. Finally, we were able to control heart rate with metoprolol, Cardizem and digoxin. Also Cardiology is following this patient. We will follow recommendations. 3. Diabetes mellitus type 2. We will continue with sliding scale insulin. Accu-Chek before meals and also at bedtime. 4. Coronary artery disease. Stable. Patient is not complaining of any chest pain. 5. History of diastolic heart failure, aware. 6. Microcytic anemia. Hemoglobin is stable. We will continue to monitor CBC while he is here. DISPOSITION: At this point, he is stable and ready to go to rehab facility. composition worker has been informed. Patient is receiving physical therapy and occupational therapy as well. cc: Can Landis MD
[2018-11-11] MEDS: TYLENOL PO PRN (14:07)
[2018-11-11] MEDS: LIPITOR PO SCH (20:34)
[2018-11-12] MEDS: CARDIZEM PO SCH ×4 (02:02→23:11)
[2018-11-12] MEDS: HUMULIN R SUBQ SCH ×6 (02:42→23:11)
[2018-11-12] MEDS: DUONEB (A & A) INH SCH ×6 (03:35→23:25)
--- NOTE | 2018-11-12 04:05 | PULMONOLOGY PROGRESS NOTE ---
DATE: 11/11/2018 SUBJECTIVE: The patient is awake, alert, and conversant. He reports he is gaining some strength. He is without specific complaints. He reports that he has a CPAP machine at home but has not been wearing one for a while. OBJECTIVE: Vital Signs: Blood pressure 122/63, heart rate 70, respiratory rate 22, oxygen saturation 99% on nasal cannula. HEENT: Pupils are equal and reactive. Oropharynx is clear. Neck: Supple. Chest: Reveals crackles in the lung bases. Cardiac Examination: S1-S2. Irregular rhythm. Abdomen: Soft. Extremities: Reveal chronic venous insufficiency. Laboratories: No new chest x-ray data. Arterial blood gas reveals a pH of 7.39, pCO2 of 62, PO2 of 61 on 3 L per nasal cannula. IMPRESSION: A 73-year-old, white male with chronic obstructive pulmonary disease, morbid obesity, acute hypercapnic respiratory failure, acute hypoxemic respiratory failure, bilateral pleural effusions, and acute cor pulmonale. The patient has diuresed almost 30 pounds since admission. He likely is having episodes of significant nocturnal hypoxemia related to noncompliance with his CPAP device. He has continued to improve. RECOMMENDATIONS: 1. Convert the patient back to oral diuretic dosing. The patient was on 20 mg twice a day on arrival and I will increase this to 40 mg twice a day. 2. Continue oxygen for hypoxemic respiratory failure. 3. Encourage patient to continue his long-term goal of losing another 25 to 30 pounds. 4. Recommend reinitiation of CPAP along with an outpatient followup sleep evaluation. 5. Anticipate transfer to a rehabilitation facility in the near future. cc: Zac Blum MD
[2018-11-12] MEDS: MAXIPIME 1 GM in NS 50 ML IV SCH ×3 (05:00→17:09)
[2018-11-12] MEDS: ZYVOX 600 MG/D5W 600 MG/300 ML IVPB IV SCH ×2 (06:47→19:20)
[2018-11-12] MEDS: PROTONIX IV SCH ×2 (06:47→07:49)
[2018-11-12] MEDS: SYNTHROID PO SCH ×2 (06:48→07:49)
[2018-11-12] MEDS: TYLENOL PO PRN ×2 (06:48→23:39)
[2018-11-12 07:05] LABS: HEMATOCRIT 43.6 % (42.0-52.0); HEMOGLOBIN 13.7 g/dL (14.0-18.0); MCH 30.4 PG (27-31); MCHC 31.4 g/dL (33-37); MCV 96.9 FL (81-99); RBC 4.5 XMIL (4.7-6.1); RDW 15.2 % (11.5-14.5); WBC 8.7 X1000 (4.8-10.8)
[2018-11-12 07:17] LABS: ALB/GLOB RATIO 0.7; ALBUMIN 3.2 g/dL (3.5-5.0); CALCIUM 9.6 mg/dL (8.8-10.2); CREATININE 1.2 mg/dL (0.7-1.2); POTASSIUM 3.8 mmol/L (3.5-5.1); TOTAL BILIRUBIN 0.62 mg/dL (0.20-1.00); TOTAL PROTEIN 7.6 g/dL (6.3-8.3)
[2018-11-12] MEDS: DULERA 200 MCG/5 MCG INHALER INH SCH ×2 (07:47→20:00)
[2018-11-12] MEDS: SPIRIVA INH SCH (07:47)
--- NOTE | 2018-11-12 09:40 | Diag Imaging Result Doc PS360 ---
EXAM: CHEST-2 VIEWS HISTORY: Resp Failure TECHNIQUE: Chest two views COMPARISON: 11/09/2018 FINDINGS: There is a small left pleural effusion with basilar atelectasis. The pleural effusion has decreased in size. Near complete resolution of the pulmonary edema. Mild cardiomegaly remains. The right lung is clear. The right-sided PICC line has been removed. IMPRESSION: Interval improvement. Electronically signed by Reji Lea 11/12/2018 9:37 AM
[2018-11-12] MEDS: LANOXIN PO SCH (12:17)
[2018-11-12] MEDS: SINGULAIR PO SCH (12:18)
[2018-11-12] MEDS: ASPIRIN PO SCH (12:18)
[2018-11-12] MEDS: ALTACE PO SCH ×2 (12:18→23:06)
[2018-11-12] MEDS: LASIX PO SCH ×2 (12:18→23:07)
[2018-11-12] MEDS: TOPROL XL PO SCH ×2 (12:18→23:06)
[2018-11-12] MEDS: COLACE PO SCH ×2 (12:19→23:06)
[2018-11-12] MEDS: VALTREX PO SCH (12:19)
[2018-11-12] MEDS: ELIQUIS PO SCH ×2 (12:19→23:07)
[2018-11-12] MEDS: BASAGLAR SUBQ SCH (12:20)
--- NOTE | 2018-11-12 16:26 | PROGRESS NOTE ---
DATE: 11/12/2018 SUBJECTIVE: The patient reports feeling fine. Denies any fever, chills, or shortness of breath. OBJECTIVE: Vital Signs: Temperature 97.7 degrees, heart rate 55, respiratory rate 18, blood pressure 111/64, O2 saturation 96% on 4 L nasal cannula. General Examination: This is a chronically ill-looking, 73-year-old, male lying in bed, in no acute distress. Cardiovascular: S1, S2 heard. Irregularly irregular, but no murmurs, gallops, or rubs. Respiratory: Decreased breath sounds globally. Coarse breath sounds still noted in both pulmonary bases, but better in comparing with previous days. The patient is not using any accessory muscles or having work of breathing. Abdomen: Soft. Nontender to palpation. Bowel sounds present. No organomegaly. Extremities: Signs of chronic venous insufficiency in both lower extremities with some purple discoloration as well, but peripheral pulses are present in both legs. Neurological: Patient alert and oriented x3. Moves 4 extremities. LABORATORY DATA: Reviewed. ASSESSMENT AND PLAN: 1. Acute on chronic hypercapnic respiratory failure. The patient continues to require 4 L of oxygen by nasal cannula, which is his usual oxygen rate for him. Will continue with the same. 2. Chronic atrial fibrillation. The patient is on metoprolol, Cardizem, and digoxin. Will continue with the same management. 3. Diabetes mellitus type 2. Will continue with sliding scale insulin and Accu-Chek before meals and also at bedtime. 4. Coronary artery disease, stable. The patient is not complaining of any chest pain. 5. History of diastolic heart failure, stable. Will continue with home medications. 6. Microcytic anemia. Hemoglobin is stable. Will continue to monitor CBC while this patient is here. DISPOSITION: At this time, the patient is medically stable, awaiting for rehab to find a rehab bed. cc: Can Landis MD
[2018-11-12] MEDS: LIPITOR PO SCH (23:06)
[2018-11-13] MEDS: HUMULIN R SUBQ SCH ×6 (01:23→23:15)
[2018-11-13] MEDS: DUONEB (A & A) INH SCH ×6 (03:00→23:00)
[2018-11-13] MEDS: MAXIPIME 1 GM in NS 50 ML IV SCH (04:00)
[2018-11-13] MEDS: CARDIZEM PO SCH ×4 (04:00→23:05)
--- NOTE | 2018-11-13 04:37 | PULMONOLOGY PROGRESS NOTE ---
DATE: 11/12/2018 SUBJECTIVE: The patient was sleeping upon arrival but is awake, alert, and conversant. He reports he has had a good day. He denies shortness of breath. OBJECTIVE: Vital Signs: The patient has been afebrile for the last 24 hours. Blood pressure 113/52, heart rate 65, respiratory rate 18, oxygen saturation 100% on nasal cannula. HEENT: Pupils are equal and reactive. Oropharynx is clear. Neck: Supple. Chest: Reveals slightly decreased breath sounds in the lung bases. Cardiac Examination: S1 and S2. Abdomen: Soft: Extremities: Reveal trace to 1+ peripheral edema. Laboratories: Chest x-ray reveals near-complete resolution of pulmonary edema with clearing of the right lung, small atelectasis and small left pleural effusion but significant improvement over the last 3 days. IMPRESSION: A 73-year-old with chronic obstructive pulmonary disease, morbid obesity, acute hypercapnic respiratory failure, acute hypoxemic respiratory failure with pleural effusions, and acute cor pulmonale. The patient continues to improve. He is tolerating oral Lasix. RECOMMENDATIONS: 1. Continue current Lasix dose. 2. Continue oxygen for hypoxemic respiratory failure. 3. Recommend outpatient sleep apnea evaluation. 4. Anticipate transfer to a rehabilitation center when bed available. cc: Zac Blum MD
[2018-11-13] MEDS: PROTONIX IV SCH (06:33)
[2018-11-13] MEDS: SYNTHROID PO SCH (06:33)
[2018-11-13] MEDS: SODIUM CHLORIDE 0.9% INJ SCH (06:33)
[2018-11-13] MEDS: ZYVOX 600 MG/D5W 600 MG/300 ML IVPB IV SCH (06:33)
[2018-11-13 06:54] LABS: HEMATOCRIT 43.1 % (42.0-52.0); HEMOGLOBIN 13.3 g/dL (14.0-18.0); MCH 30.2 PG (27-31); MCHC 30.9 g/dL (33-37); MCV 97.7 FL (81-99); MPV 9.9 FL (7.4-10.4); RBC 4.41 XMIL (4.7-6.1); RDW 15.2 % (11.5-14.5); WBC 8.16 X1000 (4.8-10.8)
[2018-11-13] MEDS: DULERA 200 MCG/5 MCG INHALER INH SCH ×2 (07:38→19:10)
[2018-11-13] MEDS: SPIRIVA INH SCH (07:38)
[2018-11-13 07:46] LABS: ALB/GLOB RATIO 0.8; ALBUMIN 3.3 g/dL (3.5-5.0); CALCIUM 9.5 mg/dL (8.8-10.2); CREATININE 1.5 mg/dL (0.7-1.2); POTASSIUM 3.7 mmol/L (3.5-5.1); TOTAL BILIRUBIN 0.55 mg/dL (0.20-1.00); TOTAL PROTEIN 7.6 g/dL (6.3-8.3)
[2018-11-13] MEDS: LANOXIN PO SCH (09:59)
[2018-11-13] MEDS: LASIX PO SCH ×2 (10:00→23:05)
[2018-11-13] MEDS: SINGULAIR PO SCH (10:00)
[2018-11-13] MEDS: TOPROL XL PO SCH ×2 (10:00→23:05)
[2018-11-13] MEDS: BASAGLAR SUBQ SCH (10:00)
[2018-11-13] MEDS: ALTACE PO SCH ×2 (10:00→23:04)
[2018-11-13] MEDS: ASPIRIN PO SCH (10:00)
[2018-11-13] MEDS: COLACE PO SCH ×2 (10:00→23:05)
[2018-11-13] MEDS: ELIQUIS PO SCH ×2 (10:00→23:05)
[2018-11-13] MEDS: VALTREX PO SCH (10:00)
--- NOTE | 2018-11-13 10:24 | PROGRESS NOTE ---
DATE: 11/13/2018 SUBJECTIVE: The patient reports feeling fine. Denies any fever or chills. OBJECTIVE: Vital Signs: Temperature 98.6, heart rate 86, respiratory rate 20, blood pressure 136/88, O2 saturation 94% on 4 liters nasal cannula. General: This is a chronically ill-looking, moderately obese, 73-year-old male lying in bed in no acute distress. Cardiovascular: S1 and S2 heard. Irregularly irregular but no murmurs, gallops or rubs noted. Respiratory exam: Decreased breath sounds globally with some coarse breath sounds in both pulmonary bases, better when compared with previous days. The patient is not using any accessory muscles or having work of breathing. Abdomen: Soft, nontender to palpation. Bowel sounds present. No organomegaly. Extremities: Signs of chronic venous insufficiency in both lower extremities with purple discoloration as well. Peripheral pulses present but faint. Neurologic: The patient is alert and oriented x3. Moves all extremities. LABORATORY DATA: White cell count 8.16, hemoglobin 13.3, hematocrit 43.1, platelets 224. Creatinine 1.5. ASSESSMENT AND PLAN: 1. Acute on chronic hypercapnic respiratory failure. At this point, the patient is more stable. He requires 4 liters of oxygen by nasal cannula, which is the amount of oxygen that he used at home. At this point, will continue with the same management. Pulmonary consult following this patient, appreciate. 2. Left lower lobe pneumonia. That is the finding of the x-ray at admission. Considering that the last x-ray did not show any pneumonia and he has received 11 days of cefepime and Zyvox, I think will stop those medications today. 3. Chronic atrial fibrillation. Currently, this patient is on metoprolol, Cardizem, and digoxin. This condition is stable. Cardiology is following. We will continue with the same management. 4. Diabetes mellitus type 2. The patient is on sliding scale insulin and Accu-Cheks before meals and also at bedtime. Will continue with the same management. 5. Coronary artery disease. The patient is stable, not complaining of any chest pain. Will continue with the same medications. 6. Macrocytic anemia. Hemoglobin is stable. Continue to monitor CBC. DISPOSITION: The patient is clinically stable and he is waiting for a rehab bed. cc: Can Landis MD
[2018-11-13] MEDS: LIPITOR PO SCH (23:04)
[2018-11-14] MEDS: TYLENOL PO PRN ×2 (00:08→21:31)
[2018-11-14] MEDS: HUMULIN R SUBQ SCH ×6 (00:09→21:42)
[2018-11-14] MEDS: DUONEB (A & A) INH SCH ×6 (03:10→22:58)
[2018-11-14] MEDS: SYNTHROID PO SCH (06:49)
[2018-11-14] MEDS: CARDIZEM PO SCH ×4 (06:49→21:32)
[2018-11-14] MEDS: PROTONIX PO SCH (06:57)
[2018-11-14 07:40] LABS: HEMATOCRIT 42.1 % (42.0-52.0); HEMOGLOBIN 13.2 g/dL (14.0-18.0); MCH 30.6 PG (27-31); MCHC 31.4 g/dL (33-37); MCV 97.7 FL (81-99); MPV 9.9 FL (7.4-10.4); RBC 4.31 XMIL (4.7-6.1); RDW 15.3 % (11.5-14.5); WBC 6.63 X1000 (4.8-10.8)
[2018-11-14] MEDS: SPIRIVA INH SCH (07:40)
[2018-11-14] MEDS: DULERA 200 MCG/5 MCG INHALER INH SCH ×2 (07:40→19:09)
[2018-11-14 07:51] LABS: AGAP 11; ALB/GLOB RATIO 0.8; ALBUMIN 3.2 g/dL (3.5-5.0); ALKALINE PHOSPHATASE 81 U/L (32-122); BUN 37 mg/dL (8-22); CALCIUM 9.4 mg/dL (8.8-10.2); CHLORIDE 97 mmol/L (98-107); COSMO 288; CREATININE 1.1 mg/dL (0.7-1.2); ESTIMATED GFR > 60; GLUCOSE 136 mg/dL (70-104); GOT 25 U/L (10-34); GPT 35 U/L (10-44); POTASSIUM 3.8 mmol/L (3.5-5.1); SODIUM 139 mmol/L (136-145); TCO2 31 mmol/L (25-35); TOTAL BILIRUBIN 0.55 mg/dL (0.20-1.00); TOTAL PROTEIN 7.2 g/dL (6.3-8.3)
[2018-11-14] MEDS: ASPIRIN PO SCH (09:43)
[2018-11-14] MEDS: TOPROL XL PO SCH ×2 (09:43→21:32)
[2018-11-14] MEDS: LASIX PO SCH ×2 (09:43→21:32)
[2018-11-14] MEDS: SINGULAIR PO SCH (09:43)
[2018-11-14] MEDS: ALTACE PO SCH ×2 (09:43→21:32)
[2018-11-14] MEDS: VALTREX PO SCH (09:43)
[2018-11-14] MEDS: LANOXIN PO SCH (09:43)
[2018-11-14] MEDS: ELIQUIS PO SCH ×2 (09:43→21:32)
[2018-11-14] MEDS: COLACE PO SCH ×2 (09:43→21:33)
[2018-11-14] MEDS: BASAGLAR SUBQ SCH (10:43)
--- NOTE | 2018-11-14 13:19 | PROGRESS NOTE ---
DATE: 11/14/2018 INTERVAL HISTORY: The patient's respiratory status remains stable. Good saturations on 4 L by nasal cannula, which is what he is on at home. No new complaints. Awaiting staff placement. REVIEW OF SYSTEMS: Twelve point review of systems negative except as per interval history. VITAL SIGNS: T-max 98.6 degrees, pulse 73, respirations 17, blood pressure 126/79, O2 saturation 97% on 3 L by nasal cannula. LABS: White count 6.6, hemoglobin 13.2, hematocrit 42.1, glucose 136-174, creatinine 1.1, BUN 37. Complete metabolic panel otherwise unremarkable. PHYSICAL EXAMINATION: General: No acute distress. Vital signs: As above. HEENT: Normocephalic, atraumatic. Moist mucous membranes. No cervical adenopathy. On nasal cannula with 3 L of oxygen. Cardiovascular: Irregular rhythm. Normal rate. No murmurs noted. Pulmonary: Moderately decreased breath sounds throughout. No wheezing, rales, or rhonchi noted. No increased work of breathing. Abdomen: Soft, nontender, nondistended. Bowel sounds positive. Extremities: Peripheral pulses decreased but intact. Chronic venous stasis changes unchanged. Neurologic: Cranial nerves grossly intact. Globally weak but no focal motor or sensory deficits. Psychiatric: Normal mood and affect. Awake, alert, oriented x3. Skin: No new rashes or lesions noted. ASSESSMENT AND PLAN: 1. Acute on chronic hypercapnic and hypoxic respiratory failure. Secondary to pneumonia and chronic obstructive pulmonary disease. Now much improved and essentially back to baseline. Off of antibiotics and awaiting rehab placement. 2. Pneumonia, status post 12 days cefepime and Zyvox. Now off antibiotics. 3. Chronic obstructive pulmonary disease, chronically decreased air entry, but no wheeze at this point. Continue DuoNeb as needed. Off of IV steroids. Monitor respiratory status. 4. Chronic atrial fibrillation. Remains rate controlled on metoprolol, Cardizem, digoxin. On anticoagulation with Eliquis. 5. Diabetes mellitus. Reasonable control on current sliding scale and basal insulin. Continue to monitor glucoses 6. Anemia, likely anemia of chronic disease. Mild, asymptomatic, and stable. Monitor blood counts. 7. Deep vein thrombosis prophylaxis. Eliquis. 8. Disposition. Discharge to rehab once bed is available.
[2018-11-14] MEDS: LIPITOR PO SCH (21:33)
[2018-11-15] MEDS: HUMULIN R SUBQ SCH ×4 (01:42→13:55)
[2018-11-15] MEDS: CARDIZEM PO SCH ×3 (01:43→13:56)
[2018-11-15] MEDS: TYLENOL PO PRN (02:26)
[2018-11-15] MEDS: DUONEB (A & A) INH SCH ×3 (03:12→11:28)
[2018-11-15 05:12] VITALS: BP 120/67
[2018-11-15 07:04] LABS: HEMATOCRIT 44.5 % (42.0-52.0); HEMOGLOBIN 13.5 g/dL (14.0-18.0); MCH 29.7 PG (27-31); MCHC 30.3 g/dL (33-37); MCV 97.8 FL (81-99); MPV 9.7 FL (7.4-10.4); RBC 4.55 XMIL (4.7-6.1); RDW 15.2 % (11.5-14.5); WBC 7.97 X1000 (4.8-10.8)
[2018-11-15] MEDS: SYNTHROID PO SCH (07:15)
[2018-11-15] MEDS: PROTONIX PO SCH (07:15)
[2018-11-15 07:26] LABS: AGAP 11; ALB/GLOB RATIO 0.8; ALBUMIN 3.2 g/dL (3.5-5.0); ALKALINE PHOSPHATASE 81 U/L (32-122); BUN 36 mg/dL (8-22); CALCIUM 9.1 mg/dL (8.8-10.2); CHLORIDE 99 mmol/L (98-107); COSMO 293; CREATININE 1.1 mg/dL (0.7-1.2); ESTIMATED GFR > 60; GLUCOSE 119 mg/dL (70-104); GOT 29 U/L (10-34); GPT 37 U/L (10-44); POTASSIUM 3.9 mmol/L (3.5-5.1); SODIUM 142 mmol/L (136-145); TCO2 32 mmol/L (25-35); TOTAL BILIRUBIN 0.46 mg/dL (0.20-1.00); TOTAL PROTEIN 7.4 g/dL (6.3-8.3)
[2018-11-15] MEDS: SPIRIVA INH SCH (08:07)
[2018-11-15] MEDS: DULERA 200 MCG/5 MCG INHALER INH SCH (08:07)
[2018-11-15] MEDS: VALTREX PO SCH (09:34)
[2018-11-15] MEDS: ASPIRIN PO SCH (09:34)
[2018-11-15] MEDS: COLACE PO SCH (09:34)
[2018-11-15] MEDS: TOPROL XL PO SCH (09:34)
[2018-11-15] MEDS: SINGULAIR PO SCH (09:34)
[2018-11-15] MEDS: LASIX PO SCH (09:34)
[2018-11-15] MEDS: ELIQUIS PO SCH (09:34)
[2018-11-15] MEDS: LANOXIN PO SCH (09:35)
[2018-11-15] MEDS: ALTACE PO SCH (09:35)
[2018-11-15] MEDS: BASAGLAR SUBQ SCH (09:35)
--- NOTE | 2018-11-15 14:23 | DISCHARGE SUMMARY ---
ADMISSION DATE: 11/03/2018 DISCHARGE DATE: 11/15/2018 PRIMARY CARE PHYSICIAN: Yash Hays MD CONSULTATIONS: Zac Blum MD, Pulmonology PROCEDURES AND FINDINGS: 1. Head CT, 11/03/2018 reveals chronic changes including right frontal lobe encephalomalacia underlying a craniotomy defect. 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 No definite acute infarct. No discrete intracranial mass or hemorrhage. Minimal ethmoid sinus mucosal thickening. No definite acute intracranial pathology. 2. Echocardiogram, 11/03/2018: Estimated ejection fraction of 60% with normal wall motion, mild tricuspid regurgitation. Trace pulmonic insufficiency, mild mitral regurgitation. 3. Chest CT, 11/03/2018 reveals pulmonary edema and bilateral pleural effusions with adjacent atelectasis, nonspecific mild mediastinal and hilar lymphadenopathy, and cardiomegaly. 4. Chest x-ray, 11/12/2017 reveals a small left pleural effusion with basilar atelectasis. The pleural effusion has decreased in size. Near complete resolution of pulmonary edema. Mild cardiomegaly remains. The right lung is clear. Impression: Interval improvement. 5. EKG, 11/03/2018 reveals atrial fibrillation with RVR, incomplete right bundle branch block, and ST and T-wave abnormality. DISCHARGE DIAGNOSES: 1. Acute on chronic hypercapnic and hypoxic respiratory failure. This is secondary to pneumonia and chronic obstructive pulmonary disease. This patient has clinically improved. He has been successfully extubated and has completed a course of cefepime and Zyvox, and now completed course of antibiotics. Mr. Alexander will continue with 4 L O2 by nasal cannula upon discharge. 2. Pneumonia. He is status post 12 days of cefepime and Zyvox, and has now completed all antibiotics and clinically improved. 3. Chronic obstructive pulmonary disease, clinically improved. Completed intravenous steroids and will continue home bronchodilator dilator medications as prescribed. 4. Chronic atrial fibrillation. He required a Cardizem drip while inpatient. He is now rate- controlled with metoprolol, Cardizem and digoxin, and anticoagulation with Eliquis. 5. Diabetes mellitus. He will continue with his previous home medications. Hemoglobin A1c is 7.0. 6. Anemia, likely anemia of chronic disease. It is mild and he has been asymptomatic. HOSPITAL COURSE: Mr. Alexander is a 73-year-old male with a past medical history including chronic COPD, on home O2 therapy, chronic respiratory failure, coronary artery disease, type 2 diabetes, and bladder cancer, who presented to the emergency room after being found unresponsive at home. Upon arrival, he was intubated and placed on the ventilator. A chest x-ray revealed pulmonary venous congestion and pleural effusions. His initial ABG revealed pH of 7.3 and CO2 of 92. He was placed in the ICU on the ventilator and the pointer machine operator was consulted. He was started on broad-spectrum antibiotics, including cefepime and Zyvox, as well as IV Lasix for fluid volume overload. Overnight, this patient experienced atrial fibrillation with RVR and he was subsequently placed on a Cardizem drip for rate control. He was started on Lovenox for anticoagulation. His blood cultures returned positive for gram-positive cocci and he continued with antibiotic treatment of Zyvox and cefepime. On 11/08/2018, this patient was successfully extubated. He was transitioned to nasal cannula O2, back to his baseline O2 requirement. He continued to clinically improved and we were able to stop the Cardizem drip and transition to p.o. rate-control medications, including metoprolol, Cardizem, and digoxin. He will be anticoagulated with Eliquis. He is now stable for discharge to rehab. His last vital signs were temperature 98.5 degrees, heart rate 83, respiratory rate 14, blood pressure 120/67, O2 saturation 98% on 4 L nasal cannula. Last labs were WBC 7.9, hemoglobin 13.5, hematocrit 44.5, platelets 240,000. Sodium 142, potassium 3.9, BUN 36, creatinine 1.1, glucose 119, AST 29, ALT 37, alkaline phosphatase 81. DISCHARGE INSTRUCTIONS: Follow up with Dr. Yash Hays, PCP, within 2 weeks. The patient will be discharged to rehab. Please return to the emergency room for any worsening shortness of breath, chest pain, or worsening symptoms. Please continue with home O2 therapy and take all discharge medications as prescribed. DISCHARGE MEDICATIONS: Per Dr. Carrillo. Please see MAR. Dictated by BEBO Villanueva for Cristian Carrillo MD cc: MD Zac Ahmadi MD agree with above. remains in afib but rate controlled at the time of my exam. O2 requirements back to baseline. stable for discharge to rehab. MTDD
== END 2018-11-15 15:12 | DRG 207 ==
LOC: ED 11:33 → ICU 16:14 → SUATTDRO 16:14 → 4N 11-10 18:52 → 3N 11-13 16:54
PROVIDERS: ATTEND Internal Medicine
CPT/HCPCS: 36569; 36584; 51702; 70450; 71010; 71020; 71045; 71046; 71250; 74000; 74018; 80048; 80053; 80061; 80076; 80101; 80162; 80301; 80307; 80324; 80345; 80346; 80353; 80358; 80361; 80365; 81001; 82140; 82550; 82607; 82728; 82746; 82805; 82948; 83036; 83540; 83550; 83605; 83721; 83735; 83880; 83992; 84100; 84484; 85025; 85027; 85610; 85730; 87040; 87070; 87205; 93005; 93010; 93306; 94003; 94640; 94660; 94760; 94761; 96365; 96375; 97110; 97116; 97163; 97167; 97530; 97535; 99285; A9270; C9113; G0431; G0434; G0479; G0480; J0330; J0692; J1120; J1160; J1650; J1940; J2020; J2310; J2543; J3370; J7050; S0164; XXXXX

== ENCOUNTER 2018-12-13 13:46 | Inpatient (IN) ==
[2018-12-13] MEDS ORDERED: CARDIZEM ONE (14:03)
[2018-12-13] MEDS ORDERED: NS 1,000 ML ONE (14:07)
[2018-12-13] MEDS ORDERED: CARDIZEM IV ONE ×2 (14:11→15:21)
[2018-12-13] MEDS ORDERED: NS 1,000 ML IV ONE (14:11)
[2018-12-13] MEDS ORDERED: SOLU-MEDROL IV ONE (14:12)
[2018-12-13] MEDS ORDERED: CARDIZEM 125 MG in NS 100 ML IV SCH (14:15)
[2018-12-13 14:16] LABS: ALLEN TEST NO; BE 2.3 mmoll (-3.0-3.0); BLOOD TYPE ARTERIAL; HCO3-(ACT) 26.6 mmoll (20.0-26.0); METHB 0.7 % (0.0-1.5); O2HB 92.5 % (95.0-99.0); PO2(98.6) 82 mmHg (60-100); SAMPLE BLOOD; SAO2 95.1 % (95.0-100.0); THB 13.8 g/dL (11.5-17.4)
[2018-12-13 14:19] LABS: MODALITY CANNULA; PCO2(98.6) 99 mmHg (35-45); pH(98.6) 7.15 (7.35-7.45)
--- NOTE | 2018-12-13 14:25 | Diag Imaging Result Doc PS360 ---
CHEST-PORTABLE - 12/13/2018 INDICATION: SOB COMPARISON: 11/12/2018 FINDINGS: There is cardiomegaly and pulmonary vascular congestion. There are ill-defined central infiltrates bilaterally. No pneumothorax or significant pleural effusion. IMPRESSION: Cardiomegaly and pulmonary vascular congestion. Bilateral infiltrates suggesting pulmonary edema. Electronically signed by Dima Gan 12/13/2018 2:23 PM
[2018-12-13 14:26] LABS: BASO# 0.03 X1000 (0.0-0.2); BASO% 0.2 % (0.0-0.8); EOS# 0.18 X1000 (0.0-0.7); EOS% 1.3 % (0.0-10.0); HEMATOCRIT 42.5 % (42.0-52.0); HEMOGLOBIN 12.8 g/dL (14.0-18.0); IMM GRAN# 0.07 X1000 (0.0-0.04); IMM GRAN% 0.5 % (0.0-0.5); LYMPH# 1.58 X1000 (1.2-3.4); LYMPH% 11.7 % (20.5-51.1); MCH 30.3 PG (27-31); MCHC 30.1 g/dL (33-37); MCV 100.5 FL (81-99); MONO# 0.73 X1000 (0.11-0.59); MONO% 5.4 % (1.7-9.3); MPV 9.5 FL (7.4-10.4); NEUT# 10.97 X1000 (1.4-6.5); NEUT% 80.9 % (42.2-75.2); PLT 199 X1000 (130-400); RBC 4.23 XMIL (4.7-6.1); RDW 16.1 % (11.5-14.5); WBC 13.56 X1000 (4.8-10.8)
--- NOTE | 2018-12-13 14:30 | EKG Report ---
Test Performed on : 12/13/2018 2:01:02 PM Test Reason : SOB Blood Pressure : / mmHG Vent. Rate : 176 BPM Atrial Rate : 163 BPM P-R Int : 000 ms QRS Dur : 130 ms QT Int : 252 ms P-R-T Axes : 000 084 -33 degrees QTc Int : 431 ms Atrial fibrillation. with rapid ventricular response. with premature ventricular or aberrantly conduc azar complexes. Right bundle branch block T wave abnormality, consider lateral ischemia Abnormal ECG When compared with ECG of 03-NOV-2018 21:28, ST now depressed in Inferior leads ST more depressed in Anterolateral leads T wave inversion less evident in Lateral leads Unconfirmed Result
[2018-12-13 14:39] LABS: INR 1.21; PROTIME 16.2 Seconds (11.0-16.0)
[2018-12-13 14:40] LABS: PTT 34.5 Seconds (22.3-41.8)
[2018-12-13 14:49] LABS: AGAP 10; ALB/GLOB RATIO 1.2; ALBUMIN 4.2 g/dL (3.5-5.0); ALKALINE PHOSPHATASE 88 U/L (32-122); BUN 15 mg/dL (8-22); CALCIUM 9.3 mg/dL (8.8-10.2); CHLORIDE 98 mmol/L (98-107); CK PROFILE 57 U/L (24-204); COSMO 283; CREATININE 0.8 mg/dL (0.7-1.2); ESTIMATED GFR > 60; GLUCOSE 224 mg/dL (70-104); GOT 16 U/L (10-34); GPT 20 U/L (10-44); POTASSIUM 4.6 mmol/L (3.5-5.1); SODIUM 138 mmol/L (136-145); TCO2 30 mmol/L (25-35); TOTAL BILIRUBIN 1.12 mg/dL (0.20-1.00); TOTAL PROTEIN 7.8 g/dL (6.3-8.3)
[2018-12-13] MEDS ORDERED: ROCEPHIN 1 GM in NS 50 ML IV ONE (15:04)
[2018-12-13] MEDS ORDERED: LOPRESSOR IV ONE (15:16)
[2018-12-13] MEDS ORDERED: LANOXIN IV ONE (15:21)
[2018-12-13 15:25] LABS: URINE SOURCE CLEAN CATCH
--- NOTE | 2018-12-13 15:33 | PROVIDER DOCUMENTATION ---
This chart was entered by Abiola Hannah Scribe, acting as scribe for Tyron Hardy CRNP. HPI-Respiratory General - General Stated Complaint: sob Time Seen by Provider: 12/13/18 14:09 Source: patient, EMS Allergies/Adverse Reactions: Patient Allergies Allergy/AdvReac Type Severity Reaction Status Date / Time No Known Allergies Allergy Verified 12/13/18 14:58 Home Medications: Home Medication List Medication Instructions Recorded Confirmed Last Taken Type Albuterol Sulfate [Proair Hfa] 8.5 gm IH Q4H PRN PRN 09/22/15 08/17/16 06/05/16 08:00 History Atorvastatin Calcium [Lipitor] 20 mg PO QAM 09/22/15 11/09/18 11/03/18 09:00 History Insulin Glargine [Lantus] 57 unit SUBQ QAM 09/22/15 11/09/18 11/03/18 09:00 History Levothyroxine [Synthroid] 50 microgm PO DAILY 09/22/15 11/09/18 11/03/18 09:00 History Mometasone/Formoterol [Dulera 200 2 puff INH BID 09/22/15 11/09/18 11/03/18 History Mcg/5 Mcg Inhaler] Montelukast Sodium 10 mg PO QAM 09/22/15 11/09/18 11/03/18 09:00 History Tiotropium [place] Inhaler 1 puff INH RTDAILY 09/22/15 11/09/18 11/03/18 History [Spiriva] Valacyclovir HCl [Valacyclovir] 500 mg PO DAILY 06/10/16 11/09/18 11/03/18 History Apixaban [Eliquis] 5 mg PO BID #60 tablet 06/22/16 11/09/18 11/03/18 21:00 Rx Digoxin [Lanoxin] 250 microgm PO DAILY #30 tablet 06/22/16 11/09/18 11/03/18 09: 00 Rx Diltiazem C.d. [Cardizem Cd] 240 mg PO DAILY #30 capsule 06/22/16 11/09/1811/03 09:00 Rx Furosemide [Lasix] 20 mg PO BID #60 tablet 06/22/16 11/09/18 11/03/18 21:00 Rx Metoprolol Succinate E.r. [Toprol 25 mg PO BID #60 tablet 06/22/16 11/09/18 21:00 Rx Xl] Ramipril [Altace] 10 mg PO BID #60 capsule 06/22/16 11/09/18 11/03/18 21:00 Rx Aspirin 81 mg PO QAM chewtab 11/15/18 Unknown Rx Docusate Sodium [Colace] 100 mg PO BID PRN PRN #60 capsule 11/15/18 11/09/18 21:00 Rx Hydrocodone/APAP 5 mg/325 mg 1 ea PO HS PRN PRN #30 tab 11/15/18 Unknown Rx [Alda-5] - History of Present Illness-Resp Nature of Presenting Problem: Patient is 73 year old male who presents to the ED via EMS with shortness of breath. Patient states symptoms started yesterday. EMS states patient's O2 sat was 79% on 4 L of oxygen. EMS states history of COPD and emphysema. Quality of Pain: reports: tightness Severity in ED: reports: severe Onset/Duration: reports: 24 hours ago Timing: reports: still present, getting worse Cough Quality/Degree: reports: moderate, productive cough, sputum Current Respiratory Medication Therapy: Initiated see nurses note Associated Symptoms: reports: cough, shortness of breath Similar Symptoms Previously?: Yes Recently seen or treated by another doctor?: No Review of Systems - Adult - REVIEW OF SYSTEMS - ADULT Constitutional: reports: no symptoms reported Eyes: reports: no symptoms reported Ears, Nose, Mouth & Throat: reports: no symptoms reported Cardiovascular: reports: no symptoms reported Respiratory: reports: cough, shortness of breath. denies: wheezing Gastrointestinal: reports: no symptoms reported Genitourinary: reports: no symptoms reported Musculoskeletal: reports: no symptoms reported Integumentary: reports: no symptoms reported Neurological: reports: no symptoms reported Psychiatric: reports: no symptoms reported Endocrine: reports: no symptoms reported Hematologic/Lymphatic: reports: no symptoms reported Allergic/Immunologic: reports: no symptoms reported All Other Systems: Reviewed and Negative Past History - Adult - PAST MEDICAL HISTORY-ADULT Review of Records: reports: Nursing Assessment Review, Medications Reviewed, Social history reviewed & non-contributory. Major Childhood Illnesses: reports: denies history Cardiovascular: reports: HTN, hyperlipidemia Respiratory: reports: asthma, COPD, sleep apnea Gastrointestinal: reports: denies history Obstetrical/Gynecological: reports: denies history Genitourinary: reports: denies history Musculoskeletal: reports: denies history Neurological: reports: denies history Endocrine/Immune: reports: Diabetes, thyroid disorder Other Conditions: reports: denies history - PRIOR SURGERIES/PROCEDURES Surgical/Procedure History: reports: appendectomy - IMMUNIZATION STATUS Childhood Immunizations: See Nurse Assessment Flu Vaccine: See Nurse Assessment - FAMILY HISTORY Family History: reviewed, not pertinent - SOCIAL HISTORY Smoking: cigarettes (former) Substance Use: alcohol Alcohol Use Frequency: occasionally Living Situation: family Physical Exam-General - PHYSICAL EXAM-ADULT Initial Vital Signs Reviewed: Yes - CONSTITUTIONAL General Appearance: alert, severe distress, obese - EYES Eyes: pale conjunctivae - RESPIRATORY Respiratory: chest non-tender, respiratory distress (severe), accessory muscle use - CARDIOVASCULAR Cardiovascular: tachycardia - SKIN Integumentary: pallor - NEUROLOGIC Neurologic: other (unable to assess per patient's condition) Progress - PLAN OF CARE/RESULTS Progress/Plan/Lab Results: Vital Signs - 8 hr 12/13/18 13:51 12/13/18 14:10 12/13/18 14:11 Temperature 98.8 F Pulse Rate 165 H 122 H 140 H Respiratory Rate 24 45 H 41 H Blood Pressure 155/131 241/117 O2 Sat by Pulse Oximetry 94 L 88 L 93 L 12/13/18 14:20 12/13/18 14:51 12/13/18 14:53 Temperature Pulse Rate 142 H 173 H Respiratory Rate 30 H 33 H Blood Pressure 207/140 O2 Sat by Pulse Oximetry 92 L 97 96 Laboratory Results - last 24 hr 12/13/18 12/13/18 12/13/18 14:10 14:14 14:14 WBC 13.56 H RBC 4.23 L Hgb 12.8 L Hct 42.5 MCV 100.5 H MCH 30.3 MCHC 30.1 L RDW Std Deviation 16.1 H Plt Count 199 MPV 9.5 Immature Gran % (Auto) 0.5 Neut % (Auto) 80.9 H Lymph % (Auto) 11.[address] % (Auto) 5.4 Eos % (Auto) 1.3 Baso % (Auto) 0.2 Immature Gran # (Auto) 0.07 H Neut # (Auto) 10.97 H Lymph # (Auto) 1.58 [place] # (Auto) 0.73 H Eos # (Auto) 0.18 Baso # (Auto) 0.03 PT INR PTT (Actin FS) Specimen Type ARTERIAL Sample Site R BRACHIAL pH 7.15 L* pCO2 99 H* pO2 82 HCO3 26.6 H Base Excess 2.3 Oxyhemoglobin 92.5 L ABG O2 Sat (Calculated) 18.0 ABG O2 Saturation 95.1 ABG Carboxyhemoglobin 2.00 ABG Methemoglobin 0.7 Antony Test NO A-a O2 Difference 108.0 Total Hemoglobin 13.8 Lactate 1.20 Liter Flow 6.0 Blood Gas Modality CANNULA FiO2 % 44.0 Sodium 138 Potassium 4.6 Chloride 98 Carbon Dioxide 30 Anion Gap 10 BUN 15 Creatinine 0.8 Estimated GFR/1.73 m2 > 60 BUN/Creatinine Ratio 19 Glucose 224 H Calculated Osmolality 283 Calcium 9.3 Total Bilirubin 1.12 H AST 16 ALT 20 Alkaline Phosphatase 88 Creatine Kinase 57 Troponin T Total Protein 7.8 Albumin 4.2 Globulin 3.6 Albumin/Globulin Ratio 1.2 Plasma Lactate Urine Source 12/13/18 12/13/18 12/13/18 14:14 14:14 14:14 WBC RBC Hgb Hct MCV MCH MCHC RDW Std Deviation Plt Count MPV Immature Gran % (Auto) Neut % (Auto) Lymph % (Auto) [place] % (Auto) Eos % (Auto) Baso % (Auto) Immature Gran # (Auto) Neut # (Auto) Lymph # (Auto) [place] # (Auto) Eos # (Auto) Baso # (Auto) PT 16.2 H INR 1.21 PTT (Actin FS) 34.5 Specimen Type Sample Site pH pCO2 pO2 HCO3 Base Excess Oxyhemoglobin ABG O2 Sat (Calculated) ABG O2 Saturation ABG Carboxyhemoglobin ABG Methemoglobin Antony Test A-a O2 Difference Total Hemoglobin Lactate Liter Flow Blood Gas Modality FiO2 % Sodium Potassium Chloride Carbon Dioxide Anion Gap BUN Creatinine Estimated GFR/1.73 m2 BUN/Creatinine Ratio Glucose Calculated Osmolality Calcium Total Bilirubin AST ALT Alkaline Phosphatase Creatine Kinase Troponin T 0.020 Total Protein Albumin Globulin Albumin/Globulin Ratio Plasma Lactate 1.5 Urine Source 12/13/18 15:00 WBC RBC Hgb Hct MCV MCH MCHC RDW Std Deviation Plt Count MPV Immature Gran % (Auto) Neut % (Auto) Lymph % (Auto) [place] % (Auto) Eos % (Auto) Baso % (Auto) Immature Gran # (Auto) Neut # (Auto) Lymph # (Auto) [place] # (Auto) Eos # (Auto) Baso # (Auto) PT INR PTT (Actin FS) Specimen Type Sample Site pH pCO2 pO2 HCO3 Base Excess Oxyhemoglobin ABG O2 Sat (Calculated) ABG O2 Saturation ABG Carboxyhemoglobin ABG Methemoglobin Antony Test A-a O2 Difference Total Hemoglobin Lactate Liter Flow Blood Gas Modality FiO2 % Sodium Potassium Chloride Carbon Dioxide Anion Gap BUN Creatinine Estimated GFR/1.73 m2 BUN/Creatinine Ratio Glucose Calculated Osmolality Calcium Total Bilirubin AST ALT Alkaline Phosphatase Creatine Kinase Troponin T Total Protein Albumin Globulin Albumin/Globulin Ratio Plasma Lactate Urine Source CLEAN CATCH Orders Category Date Time Status FSBS [Finger Stick Blood Sugar (ED)] DIRECTED Care 12/13/18 14:10 Active Sharma Cath Insertion ORDERED Care 12/13/18 14:38 Active Saline Loc NOW Care 12/13/18 14:10 Active CHEST-PORTABLE [RAD] Stat Exams 12/13/18 14:12 Completed ABG [RESP] Routine Lab 12/13/18 14:10 Completed ABG [RESP] Stat Lab 12/13/18 15:31 Ordered BLOOD CULTURE [BLDCUL] Stat Lab 12/13/18 14:14 Results CBC WITH ELECTRONIC DIFF [HEME] Stat Lab 12/13/18 14:14 Completed CK PROFILE [SP CHEM] Stat Lab 12/13/18 14:14 Completed COMPREHENSIVE METABOLIC PANEL [CHEM] Stat Lab 12/13/18 14:14 Completed LACTATE, PLASMA [CHEM] Stat Lab 12/13/18 14:14 Completed PRO B-NATRIURETIC PEPTIDE Stat Lab 12/13/18 14:14 Received PROTIME WITH INR [COAG] Stat Lab 12/13/18 14:14 Completed PTT [COAG] Stat Lab 12/13/18 14:14 Completed TROPONIN T Stat Lab 12/13/18 14:14 Completed TSH Stat Lab 12/13/18 14:14 Received URINALYSIS W/POSS RFLX CULT [URINALYSIS] Stat Lab 12/13/18 15:00 Results 0.9% Sodium Chloride Inj [Ns] 1,000 ml Med 12/13/18 14:07 Discontinued .ROUTE As Directed 0.9% Sodium Chloride Inj [Ns] 1,000 ml Med 12/13/18 14:11 Discontinued IV KVO 0.9% Sodium Chloride Inj [Ns] 100 ml Med 12/13/18 14:15 Active Diltiazem [Cardizem] 125 mg IV As Directed CefTRIAXONE [Rocephin] 1 gm Med 12/13/18 15:04 Active 0.9% Sodium Chloride Inj [Ns] 50 ml IV NOW Digoxin [Lanoxin] Med 12/13/18 15:21 Discontinued 250 microgm IV NOW ONE Diltiazem [Cardizem] Med 12/13/18 14:11 Discontinued 10 mg IV NOW ONE Diltiazem [Cardizem] Med 12/13/18 15:21 Discontinued 10 mg IV NOW ONE Diltiazem [Cardizem] Med 12/13/18 14:03 Discontinued 25 mg .ROUTE .STK-MED ONE Methylprednisolone Sod Succ [Solu-Medrol] Med 12/13/18 14:12 Discontinued 80 mg IV NOW ONE Metoprolol [Lopressor] Med 12/13/18 15:16 Discontinued 5 mg IV NOW ONE BIPAP Stat Oth 12/13/18 14:52 Active EKG [EKG] Stat Ther 12/13/18 14:10 Draft Laboratory Tests 12/13/18 12/13/18 12/13/18 14:10 14:14 14:14 WBC 13.56 H RBC 4.23 L Hgb 12.8 L Hct 42.5 MCV 100.5 H MCH 30.3 MCHC 30.1 L RDW Std Deviation 16.1 H Plt Count 199 MPV 9.5 Immature Gran % (Auto) 0.5 Neut % (Auto) 80.9 H Lymph % (Auto) 11.[address] % (Auto) 5.4 Eos % (Auto) 1.3 Baso % (Auto) 0.2 Immature Gran # (Auto) 0.07 H Neut # (Auto) 10.97 H Lymph # (Auto) 1.58 [place] # (Auto) 0.73 H Eos # (Auto) 0.18 Baso # (Auto) 0.03 PT INR PTT (Actin FS) Specimen Type ARTERIAL Sample Site R BRACHIAL pH 7.15 L* pCO2 99 H* pO2 82 HCO3 26.6 H Base Excess 2.3 Oxyhemoglobin 92.5 L ABG O2 Sat (Calculated) 18.0 ABG O2 Saturation 95.1 ABG Carboxyhemoglobin 2.00 ABG Methemoglobin 0.7 Antony Test NO A-a O2 Difference 108.0 Total Hemoglobin 13.8 Lactate 1.20 Liter Flow 6.0 Blood Gas Modality CANNULA FiO2 % 44.0 Sodium 138 Potassium 4.6 Chloride 98 Carbon Dioxide 30 Anion Gap 10 BUN 15 Creatinine 0.8 Estimated GFR/1.73 m2 > 60 BUN/Creatinine Ratio 19 Glucose 224 H Calculated Osmolality 283 Calcium 9.3 Total Bilirubin 1.12 H AST 16 ALT 20 Alkaline Phosphatase 88 Creatine Kinase 57 Troponin T Total Protein 7.8 Albumin 4.2 Globulin 3.6 Albumin/Globulin Ratio 1.2 Plasma Lactate 12/13/18 12/13/18 12/13/18 14:14 14:14 14:14 WBC RBC Hgb Hct MCV MCH MCHC RDW Std Deviation Plt Count MPV Immature Gran % (Auto) Neut % (Auto) Lymph % (Auto) [place] % (Auto) Eos % (Auto) Baso % (Auto) Immature Gran # (Auto) Neut # (Auto) Lymph # (Auto) [place] # (Auto) Eos # (Auto) Baso # (Auto) PT 16.2 H INR 1.21 PTT (Actin FS) 34.5 Specimen Type Sample Site pH pCO2 pO2 HCO3 Base Excess Oxyhemoglobin ABG O2 Sat (Calculated) ABG O2 Saturation ABG Carboxyhemoglobin ABG Methemoglobin Antony Test A-a O2 Difference Total Hemoglobin Lactate Liter Flow Blood Gas Modality FiO2 % Sodium Potassium Chloride Carbon Dioxide Anion Gap BUN Creatinine Estimated GFR/1.73 m2 BUN/Creatinine Ratio Glucose Calculated Osmolality Calcium Total Bilirubin AST ALT Alkaline Phosphatase Creatine Kinase Troponin T 0.020 Total Protein Albumin Globulin Albumin/Globulin Ratio Plasma Lactate 1.5 Discussed results and plan of care with patient and family. Both agree with plan and verbalizes understanding. Result Diagrams: 12/13/18 14:14 12/13/18 14:14 - EKG 1 Time of EKG reading by physician:: 14:01 EKG Read and Signed by:: Pollo Carrizales EKG Interpretation (*Must complete 3 of following elements*): Abnormal (rhythm - atrial fibrillation with rapid ventricular response with premature ventricular or aberrantly conducted complexes; T wave abnormality, consider lateral ischemia) Rate: 176 QRS: RBB - XRAY 1 XRAY Study: Chest Impression: See EMR Report ( CHEST-PORTABLE - 12/13/2018 INDICATION: SOB COMPARISON: 11/12/2018 FINDINGS: There is cardiomegaly and pulmonary vascular congestion. There are ill-defined central infiltrates bilaterally. No pneumothorax or significant pleural effusion. IMPRESSION: Cardiomegaly and pulmonary vascular congestion. Bilateral infiltrates suggesting pulmonary edema. Electronically signed by Dima Gan 12/13/2018 2:23 PM 12/13/18 1423 Interpreting Physician: Dima Gan MD Dictated Date/Time: 06/23 1422 cc: Tyron Hardy;) - CONSULTS/PCP/HOSPITALIST Notification #1 *Consult/PCP/Hospitalist*: Dr. Bang Time Discussed: 15:18 Reason/Comments: Consult Consult Disposition: other (He will pass on to the new supply chain consultant cardiology physician but go ahead and give some Lopressor.) #2 Consult: Dr. Pan Time Discussed: 15:23 Reason/Comments: Consult Consult Disposition: other (Give the patient 0.25 Digoxin and 10 mg cardizem and admit) #3 Consult: Tariq for Dr. Sparks Time Discussed: 15:32 Reason/Comments: Admit Consult Disposition: Will see in ED, Admit Departure - Departure Date of Disposition Decision: 12/13/18 Time of Disposition Decision: 15:12 DIAGNOSIS: Atrial fibrillation with rapid ventricular response Dyspnea Qualifiers: Dyspnea type: shortness of breath Qualified Code(s): R06.02 - Shortness of breath; R06.00 - Dyspnea, unspecified; R06.01 - Orthopnea Pneumonia Qualifiers: Pneumonia type: due to unspecified organism Laterality: bilateral Lung location : unspecified part of lung Qualified Code(s): J18.9 - Pneumonia, unspecified organism Acute respiratory failure Qualifiers: Respiratory failure complication: unspecified whether with hypoxia or hypercapnia Qualified Code(s): J96.00 - Acute respiratory failure, unspecified whether with hypoxia or hypercapnia Disposition: ADMITTED INPATIENT 09 Certified Medical Emergency: Emergent Condition: Stable Referrals and Follow-Ups: Yash Hays MD [Primary Care Provider] - - Critical Care Note This patient required my direct & personal management of CC.: No Attestation - Physician/ JAKOB Attestation Patient care was provided by Advanced Practice Provider:: Yes Advanced Practice Provider:: Tyron Hardy Advanced Practice Provider documentation review:: The Mid-level provider documentation, treatment plan and medical decision making was reviewed by the physician who agrees with all treatment and medical decision making by the MLP. The physician spent face to face time with patient:: Yes Advanced Practice Provider documentation review:: Supervising physician onsite and consulted in the evaluation and care of this patient. The physician did have a face to face encounter with the patient. This chart was documented by the indicated scribe, (Abiola Hannah Scribe) and accurately reflects the services I performed and decisions made by me, Tyron Hardy CRNP, as attested by the provider's signature.
[2018-12-13 15:36] LABS: BILIRUBIN URINE NEGATIVE (NEGATIVE); BLOOD URINE TRACE (NEGATIVE); COLOR YELLOW; GLUCOSE URINE NEGATIVE (NEGATIVE); KETONE URINE NEGATIVE (NEGATIVE); LEUKOCYTES URINE NEGATIVE (NEGATIVE); NITRITE URINE NEGATIVE (NEGATIVE); PH URINE 6.5; PROTEIN URINE 300 mg/dL (NEGATIVE); SP GRAVITY URINE 1.018; TURBIDITY URINE CLEAR (CLEAR); UROBILINOGEN URINE NORMAL (NORMAL)
[2018-12-13 15:37] LABS: UR EPITHELIAL CELLS <10 /HPF (<10); URINE BACTERIA NEGATIVE /HPF; URINE RBC <10 /HPF (<10); URINE WBC <10 /HPF (<10)
[2018-12-13 15:50] LABS: ALLEN TEST NO; BE 1.8 mmoll (-3.0-3.0); BLOOD TYPE ARTERIAL; HCO3-(ACT) 26.2 mmoll (20.0-26.0); METHB 1.2 % (0.0-1.5); O2(CT) 17.5 mL/dL (15.0-23.0); O2HB 92.1 % (95.0-99.0); PO2(98.6) 83 mmHg (60-100); SAMPLE BLOOD; SAO2 95.4 % (95.0-100.0); THB 13.5 g/dL (11.5-17.4)
[2018-12-13 15:52] LABS: MODALITY BI PAP; PCO2(98.6) 94 mmHg (35-45); pH(98.6) 7.16 (7.35-7.45)
[2018-12-13] MEDS ORDERED: LASIX IV ONE (15:57)
[2018-12-13] MEDS ORDERED: QUELICIN ONE (16:02)
[2018-12-13] MEDS ORDERED: NORCURON ONE (16:02)
[2018-12-13] MEDS ORDERED: AMIDATE IV ONE (16:11)
[2018-12-13] MEDS ORDERED: NORCURON IV ONE (16:12)
[2018-12-13] MEDS ORDERED: QUELICIN IV ONE (16:12)
[2018-12-13] MEDS ORDERED: DIPRIVAN 1% 1,000 MG/100 ML BOTTLE ONE (16:13)
[2018-12-13] MEDS ORDERED: ZOFRAN IV PRN (16:25)
[2018-12-13] MEDS ORDERED: LASIX IV SCH (16:25)
[2018-12-13] MEDS ORDERED: DUONEB (A & A) INH PRN (16:25)
[2018-12-13] MEDS: DIPRIVAN 1% 1,000 MG/100 ML BOTTLE IV SCH ×3 (16:32→20:11)
--- NOTE | 2018-12-13 16:37 | Diag Imaging Result Doc PS360 ---
CHEST-PORTABLE - 12/13/2018 4:25 PM INDICATION: tube placement COMPARISON: 2:18 PM FINDINGS: There is an endotracheal tube in good position at T4. There is a nasogastric tube in good position in the stomach. There is worsening bilateral infiltrates compatible with pulmonary edema. IMPRESSION: Good support tube placement. Worsening bilateral infiltrates/pulmonary edema. Electronically signed by Dima Gan 12/13/2018 4:35 PM
[2018-12-13] MEDS ORDERED: VANCOMYCIN IV PER PHARMACY MISC SCH (16:45)
[2018-12-13] MEDS ORDERED: LEVOPHED 8 MG in D5 1/2 NS 250 ML IV SCH (17:00)
--- NOTE | 2018-12-13 17:45 | HISTORY AND PHYSICAL ---
PRIMARY CARE PHYSICIAN: Dr. Yash Hays CHIEF COMPLAINT: Mr. Alexander is a 73-year-old male known to our service. He was here last month at which time he was intubated for acute on chronic respiratory failure. He also carries multiple other comorbidities. He has not been home from rehab for too long, a few days. Per his 's report, yesterday he started having sneezing, upper respiratory congestion, cough and shortness of breath that has progressed into the morning. They were waiting to hear back from his PCP for recommendations but decided to come to the ER because his breathing had gotten labored. He has not been complaining of any chest pain, fever, nausea or vomiting. He is supposed to be on CPAP but has not been able to make an appointment to have a sleep study done since his last discharge. In the ER, his initial blood gas showed severe hypercapnic respiratory failure. Initially, BiPAP was tried but was unsuccessful, and he has since been intubated. His chest x-ray is compatible with pulmonary edema. His EKG shows atrial fibrillation with RVR. He does have chronic atrial fibrillation. Given the respiratory failure and need for intubation, he will go to the ICU. PAST MEDICAL HISTORY: 1. Chronic respiratory failure. 2. Severe COPD. 3. Morbid obesity. 4. Diabetes mellitus. 5. History of bladder cancer. 6. History of cerebral aneurysm. 7. Hypothyroidism. 8. Obstructive sleep apnea. 9. Chronic venous insufficiency. 10.Coronary artery disease. 11.Chronic atrial fibrillation. 12.Hyperlipidemia. PAST SURGICAL HISTORY: He has had a craniotomy for cerebral aneurysm, appendectomy, basal cell skin cancer removal, bladder cancer excision, coronary stenting. SOCIAL HISTORY: More than [id number] history of smoking but has not smoked in some time. is at the bedside. There is no alcohol or drug use. FAMILY HISTORY: Noncontributory. REVIEW OF SYSTEMS: Unable to obtain due to respiratory failure. HOME MEDICATIONS: Awaiting accurate medication reconciliation. PHYSICAL EXAMINATION: VITAL SIGNS: Blood pressure is 187/105, heart rate is 119, respiratory rate is 34, O2 saturation 94% on BiPAP 100%. Temperature is 98.8. GENERAL: A morbidly obese male lying in hospital bed in severe respiratory distress on BiPAP. NEUROLOGICAL: He does follow commands. No focal deficits. HEENT: Head is atraumatic and normocephalic. Pupils are equal, round and reactive to light. Oral mucosa and neck exam are precluded due to BiPAP, respiratory failure, body habitus and emergent need for intubation. CHEST: Decreased at the bases with bibasilar crackles. CARDIOVASCULAR: Tachycardia and irregular. S1 and S2 noted. GASTROINTESTINAL: Soft, nondistended and nontender. Bowel sounds are positive. EXTREMITIES: 2+ pitting edema bilaterally. Pulses are diminished. Chronic venous insufficiency is noted. DIAGNOSTIC DATA: Most recent ABG on 80% BiPAP with pH of 7.16, CO2 of 94, O2 of 83, bicarbonate 26.2. WBC is 13.56, hemoglobin 12.8, hematocrit 42.5, MCV is 100.5, platelet count 109. INR is 1.21. Sodium is 138, potassium 4.6, chloride 98, CO2 is 30, anion gap is 10, BUN is 15, creatinine 0.8, glucose 224, calcium 9.3, total bilirubin 1.12, AST is 16, ALT is 20, alkaline phosphatase 88. CK is 57. Troponin 0.020. ProBNP is 2655. Protein is 7.8, albumin 4.2. TSH is 3.54. Lactic acid 1.5. UA is negative. ASSESSMENT AND PLAN: 1. Acute on chronic respiratory failure. Likely again to volume overload, diastolic heart failure, COPD and possibly pneumonia. We are going to swab him for the flu. We will draw blood cultures and sputum cultures. Start him on Lasix. Continue with diuresis, broad spectrum antibiotics, steroids, breathing treatments and aggressive pulmonary toilet. Dr. Blum with Pulmonary has been consulted. 2. Atrial fibrillation with rapid ventricular response. We will continue Cardizem drip. Cardiology has been consulted. Trend his cardiac enzymes. We will continue his home medications once reconciled. 3. Presumed healthcare associated pneumonia. Cultures are pending. We will add broad spectrum antibiotics with MRSA coverage. Follow culture data. 4. Diabetes mellitus. We will add pattern sugars and sliding scale insulin. 5. Hypertension. Continue home medications and titrate as necessary. 6. Sleep apnea, obesity hypoventilation syndrome. We will continue mechanical ventilation. The patient will need outpatient sleep study and CPAP. We will try to get him set up with at least auto PAP when he leaves. 7. DVT with home anticoagulation once compiled. Further recommendations to follow. We will make sure and add Protonix for GI prophylaxis. Dictated by BEBO Wiley for Ivelisse Sparks MD cc: BEBO Wiley MD I performed a face to face encounter on the patient. I reviewed all imaging and labs on the patient. I agree with the H&P as dictated. The patient presented to the ER in respiratory failure. He was subsequently intubated and placed on the ventilator. On exam, the patient was noted to be sedated. His breath sounds were coarse with crackles. He has 1+ edema in his lower extremities. The chest x ray showed pneumonia and he is positive for influenza A. Blood and sputum cultures have been obtained. Will start the patient on broad spectrum antibiotics and tamiflu. will be consulted for assistance with ventilator management and critical care management. The patient is currently on a cardizem drip due to afib with rvr. Will consult with the landfill gas collection system operator for further assistance with management. LUCY
[2018-12-13] MEDS: HUMALOG SUBQ SCH ×2 (18:01→21:06)
[2018-12-13] MEDS: PROTONIX IV SCH (18:01)
[2018-12-13] MEDS: ZYVOX 600 MG/D5W 600 MG/300 ML IVPB IV SCH (18:02)
[2018-12-13] MEDS: DUONEB (A & A) INH SCH ×2 (20:06→23:36)
[2018-12-13] MEDS: ZOSYN 3.375 GM in NS 50 ML IV SCH (20:12)
[2018-12-13] MEDS: SOLU-MEDROL IV SCH (22:16)
[2018-12-13] MEDS: TAMIFLU PO SCH (22:21)
[2018-12-14] MEDS: ZOSYN 3.375 GM in NS 50 ML IV SCH ×4 (01:20→19:47)
[2018-12-14] MEDS: DIPRIVAN 1% 1,000 MG/100 ML BOTTLE IV SCH ×2 (01:20→06:05)
[2018-12-14] MEDS: DUONEB (A & A) INH SCH ×6 (03:28→23:50)
--- NOTE | 2018-12-14 04:41 | PULMONOLOGY CONSULTATION ---
DATE: 12/13/2018 REQUESTING PHYSICIAN: Dr. Sparks. REASON FOR CONSULTATION: Respiratory failure. HISTORY OF PRESENT ILLNESS: Mr. Alxeander is a 73-year-old white male with severe COPD, chronic hypoxemic respiratory failure, who was recently admitted to this hospital between 11/03/2018 to 11/15/2018, with respiratory failure and pulmonary edema. He was successfully extubated and discharged to a rehab facility stay. By report, the patient has not been home but for a few days, and he subsequently developed cough, increasing shortness of breath, upper respiratory congestion, and sneezing. He had progressive shortness of breath, and presented to the emergency room. He failed BiPAP, and was intubated and initiated on mechanical ventilation. Chest x-ray reveals bilateral pulmonary infiltrates. PAST MEDICAL HISTORY/PROBLEM LIST: 1. COPD, with chronic hypoxemic and chronic hypercapnic respiratory failure. 2. Morbid obesity. 3. Diabetes mellitus. 4. Dyslipidemia. 5. History of bladder cancer. 6. Status post cranial surgery for cerebral aneurysm. 7. Hypothyroidism. 8. B12 deficiency. 9. Sleep apnea, without CPAP compliance. Sleep evaluation was pending prior to this admission. 10. History of chronic venous insufficiency. 11. Status post appendectomy. 12. History of basal cell cancer surgery. 13. Coronary artery disease, with prior drug-eluting stent placement. SOCIAL HISTORY: The patient has a [id number] history for tobacco. No alcohol use. 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 FAMILY HISTORY: Positive for heart disease. REVIEW OF SYSTEMS: Cannot be obtained. PHYSICAL EXAMINATION: General: Reveals an obese white male, who appears comfortable on mechanical ventilation. Vital Signs: Temperature earlier today was 98.8, blood pressure 100/52, heart rate 86, respiratory rate 15, oxygen saturation 93%. Weight is 267 pounds, which is similar to previous and weight before discharge. HEENT: Pupils are equal and reactive. Oropharynx is clear. Neck: Supple. Chest: Reveals scattered wheezing throughout all lung strauss. Cardiac: S1, S2 with an irregularly irregular rhythm. Abdomen: Obese and soft. Extremities: Revealed 1+ peripheral edema. LABORATORIES: Chest x-ray reveals bilateral infiltrates. White blood count 13.56, hemoglobin 12.8, platelet count 199,000. Arterial blood gas is in the emergency room: pH 7.19, pCO2 of 94, PO2 of 83. Urine reveals 300 protein, but negative for white blood cells and red blood cells. Microbiology is positive for influenza A. IMPRESSION: A 73-year-old with chronic respiratory failure, who presents with influenza, pulmonary infiltrates, acute hypoxemic and acute hypercapnic respiratory failure requiring intubation and mechanical ventilation. The patient has wheezing on exam, likely related to his influenza infection. It is possible that this represents a false positive, but with history prior to admission consistent with an upper respiratory infection, he likely has an active influenza infection. RECOMMENDATIONS: 1. Initiate Tamiflu for influenza. 2. Continue broad-spectrum antibiotics per pulmonary infiltrates. 3. Initiate isolation. 4. Continue bronchodilators, gastric acid suppression, deep venous thrombosis prophylaxis. 5. Overall prognosis is guarded. TIME SPENT IN CRITICAL CARE: 1 hour. cc: Zac Blum MD
[2018-12-14] MEDS: ZYVOX 600 MG/D5W 600 MG/300 ML IVPB IV SCH ×2 (05:23→16:17)
[2018-12-14 05:30] LABS: ALLEN TEST YES; BE 6.3 mmoll (-3.0-3.0); BLOOD TYPE ARTERIAL; HCO3-(ACT) 29.8 mmoll (20.0-26.0); METHB 1.6 % (0.0-1.5); O2(CT) 15.5 mL/dL (15.0-23.0); PO2(98.6) 112 mmHg (60-100); SAMPLE BLOOD; SAO2 98.3 % (95.0-100.0); SRATE 10 BPM; THB 11.5 g/dL (11.5-17.4); TVOL 650 mL; pH(98.6) 7.36 (7.35-7.45)
[2018-12-14 05:33] LABS: MODALITY VENTILATOR; PCO2(98.6) 59 mmHg (35-45)
[2018-12-14 05:49] LABS: HEMOGLOBIN 10.8 g/dL (14.0-18.0); IMM GRAN# 0.02 X1000 (0.0-0.04); IMM GRAN% 0.2 % (0.0-0.5); LYMPH# 0.25 X1000 (1.2-3.4); LYMPH% 2.4 % (20.5-51.1); MCH 30.9 PG (27-31); MCHC 30.9 g/dL (33-37); MCV 100.3 FL (81-99); MONO# 0.21 X1000 (0.11-0.59); MPV 10.1 FL (7.4-10.4); NEUT# 10.05 X1000 (1.4-6.5); NEUT% 95.4 % (42.2-75.2); PLT 178 X1000 (130-400); RBC 3.49 XMIL (4.7-6.1); RDW 16.1 % (11.5-14.5); WBC 10.53 X1000 (4.8-10.8)
[2018-12-14 05:56] LABS: AGAP 14; BUN 22 mg/dL (8-22); CALCIUM 8.8 mg/dL (8.8-10.2); CHLORIDE 100 mmol/L (98-107); COSMO 292; CREATININE 1.1 mg/dL (0.7-1.2); ESTIMATED GFR > 60; GLUCOSE 227 mg/dL (70-104); MAGNESIUM 1.9 mg/dL (1.5-2.7); POTASSIUM 4.6 mmol/L (3.5-5.1); SODIUM 141 mmol/L (136-145); TCO2 27 mmol/L (25-35)
[2018-12-14] MEDS: SOLU-MEDROL IV SCH ×3 (06:05→22:58)
[2018-12-14] MEDS: SYNTHROID IV SCH (06:06)
[2018-12-14] MEDS: SODIUM CHLORIDE 0.9% INJ PRN (06:07)
[2018-12-14] MEDS: HUMALOG SUBQ SCH ×5 (06:13→21:08)
[2018-12-14 06:16] LABS: LYMPHS 3 % (21-51); MONO 2 % (1-9); SEGS 95 % (42-75)
[2018-12-14] MEDS: LOVENOX SUBQ SCH (09:10)
[2018-12-14] MEDS: TAMIFLU PO SCH ×3 (09:10→21:08)
[2018-12-14] MEDS: LASIX IV SCH ×2 (09:18→16:16)
[2018-12-14] MEDS: ATIVAN IV PRN ×2 (09:23→21:09)
--- NOTE | 2018-12-14 09:23 | Diag Imaging Result Doc PS360 ---
CHEST-PORTABLE - 12/14/2018 INDICATION: short of breath COMPARISON: 12/13/2018 FINDINGS: Stable support tubes in good position. Stable cardiomegaly. Stable significant bilateral infiltrates suggesting pulmonary edema. There are worsening small to moderate bilateral pleural effusions. IMPRESSION: Slight worsening in the pleural effusions. Electronically signed by Dima Gan 12/14/2018 9:21 AM
[2018-12-14] MEDS: MORPHINE IV PRN ×5 (10:36→22:57)
--- NOTE | 2018-12-14 14:17 | CARDIOLOGY CONSULTATION ---
DATE: 12/14/2018 Cardiology was consulted for atrial fibrillation, rapid ventricular rate. Mr. Alexander is a 73-year-old gentleman was admitted here between 11/03/2018 and 11/15/2018 with respiratory failure, pulmonary edema. He was extubated and discharged to rehab facility. The patient had not been home for few days, was brought back with cough and shortness of breath with upper respiratory condition symptoms. The patient came to the emergency room. He failed BiPAP and subsequently was intubated. The patient has chronic atrial fibrillation. Was noted to be in atrial fibrillation with rapid ventricular rate started on a Cardizem drip. By the time he came to the ICU his Cardizem drip was discontinued. His rate was under control after he was intubated. He has COPD with chronic hypoxemic and hypercapnic respiratory failure as well. History was obtained from the chart as patient is intubated. PAST MEDICAL HISTORY: 1. Chronic respiratory failure. Recent admission to the hospital. 2. Severe COPD. 3. Morbid obesity. 4. Diabetes mellitus 5. History of bladder cancer. 6. History of cerebral aneurysm. 7. Chronic atrial fibrillation. 8. Chronic venous insufficiency. 9. Hyperlipidemia. 10. 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 11. Bladder cancer. HOME MEDICATIONS: Included insulin as directed, levothyroxine 50, montelukast 10, atorvastatin 20, Cardizem CD, metoprolol, Eliquis 5 b.i.d., ramipril 10 b.i.d., enteric-coated aspirin, inhalers, valacyclovir, Lasix 20 b.i.d., digoxin 250. ALLERGIES: He is not known to be allergic to any medications. REVIEW OF SYSTEMS: Could not be obtained. PHYSICAL EXAMINATION: Vital Signs: Blood pressure was 134/60, heart rate was 70, 1st and 2nd heart sounds were heard. There was no S3 gallop. Respiratory: Scattered wheeze. Abdomen: Soft, nontender. There was no guarding. Bowel sounds were heard. Central nervous system: Was alert, detailed central nervous system examination not performed. LABORATORY EXAMINATION: Revealed the patient was positive for flu. Sodium 141, potassium 4.6, BUN 22, creatinine 1.1. WBC 13.56, RBC 4.2, hemoglobin 12.8, hematocrit 42, platelet count of 199,000. Chest x-ray suggestive of bilateral infiltrates, edema. ASSESSMENT AND PLAN: 1. Mr. Rafy Alexander is a 73-year-old gentleman with history of coronary artery disease status post stent placement. 2. Chronic atrial fibrillation. 3. Morbid obesity. 4. Severe chronic obstructive pulmonary disease. 5. Bladder cancer. 6. Sleep apnea. 7. Hypothyroidism. 8. Is admitted and intubated currently, was here recently with respiratory failure. Has increasing shortness of breath, is positive for flu. 9. His cardiac enzymes were negative. RECOMMENDATIONS: 1. From a cardiac standpoint, his heart rate is under control. He has chronic atrial fibrillation. Would recommend restarting aspirin and Eliquis. 2. As far as atrial fibrillation is concerned, he has an NG tube. We will also give him currently restart Cardizem 60 mg q.8 hourly. In addition, restart his antihypertensive medications ramipril. Once he is extubated and can take p.o. medications we can start back on all his other cardiac medications as well. Currently his heart rate is under control. 3. We will get an echocardiogram to assess cardiac and valvular function. 4. His chest x-ray suggestive of infiltrate versus heart failure. He has been started on Lasix. Would recommend continue the same. He has been on antibiotics as well. I have not made any other changes. Thank you for the consult. Will follow hospital course. cc: Mario Pan MD
[2018-12-14] MEDS: PROTONIX IV SCH (16:16)
[2018-12-14] MEDS: CARDIZEM PO SCH (16:16)
[2018-12-14] MEDS: ALTACE PO SCH ×2 (19:47→21:07)
[2018-12-14] MEDS: ELIQUIS PO SCH ×2 (19:47→21:08)
--- NOTE | 2018-12-14 21:08 | PULMONOLOGY PROGRESS NOTE ---
DATE: 12/14/2018 SUBJECTIVE: The patient is awake. He is follow commands. He is attempting to communicate but not successfully. OBJECTIVE: Vital Signs: The patient has been afebrile for the last 24 hours. Heart rate 62, blood pressure 140/90, respiratory rate 20, oxygen saturation 98%. HEENT: Pupils are equal and reactive. Oropharynx evaluation is limited with endotracheal tube in place. Neck: Is supple. Chest: Reveals expiratory wheezing bilaterally. Cardiac: S1-S2. Abdomen: Soft with positive bowel sounds. Extremities: Reveal chronic edema. LABORATORIES: Chest x-ray reveals increased infiltrates or effusions in the lung bases. White blood count 10.53, hemoglobin 10.8, platelet count 178,000. Arterial blood gas, pH 7.36, pCO2 of 59, PO2 of 112 on assist-control. Sodium 141, potassium 4.6, chloride 100, bicarbonate 27, BUN 22, creatinine 1.1, glucose 227. Laboratories, blood cultures are pending. Sputum culture has just been collected. IMPRESSION: A 73-year-old with influenza, acute hypoxemic and acute hypercapnic respiratory failure, pneumonia with pleural effusions. RECOMMENDATIONS: 1. Continue Tamiflu and respiratory isolation. 2. Await sputum culture results. 3. Attempt diuresis as tolerated. 4. Continue mechanical ventilation until there is some radiographic improvement in his chest x- ray. 5. Continue bronchodilators, deep vein thrombosis prophylaxis and gastric acid suppression. TIME SPENT CRITICAL CARE: 30+ minutes. cc: Zac Blum MD
--- NOTE | 2018-12-14 22:40 | PROGRESS NOTE ---
DATE: 12/14/2018 SUBJECTIVE: The patient is resting comfortably in bed. He does awaken without any difficulty. He is currently on the ventilator. OBJECTIVE: Vital Signs: Temperature 98.6 degrees, blood pressure 134/60, heart rate 72, respirations 18, oxygen saturation 95% on the mechanical ventilator. General: This is a morbidly obese male, lying in bed, in no acute distress. Heart: S1, S2 normal. Regular rate and rhythm. Lungs: Equal air entry bilaterally. No crackles. No rales. Abdomen: Positive bowel sounds. Soft, nontender, nondistended. Extremities: 1+ edema. No cyanosis. No calf tenderness. Neurologic: The patient is awake and alert. LABS: White blood cell count 10, hemoglobin 10, hematocrit 35, platelets 178,000. Sodium 141, potassium 4.6, chloride 100, CO2 27, BUN 22, creatinine 1.1, glucose 227. Chest x-ray shows worsening pleural effusions. IMPRESSION AND PLAN: 1. [id number] hypoxemic and hypercapnic respiratory failure. The patient has volume overload plus influenza. Continue with ventilatory management, as directed by the stone polisher. 2. Possible pneumonia. Continue with broad-spectrum antibiotics. 3. Influenza. Continue with Tamiflu. 4. Pulmonary edema. Continue with diuretic therapy. 5. Hypothyroidism. Continue on Synthroid. 6. Chronic obstructive pulmonary disease exacerbation. Continue on IV steroids, bronchodilator therapy, antibiotics, and supplemental oxygen. 7. Atrial fibrillation. The patient is rate controlled. 8. Diabetes mellitus type 2. Continue on sliding scale insulin. 9. Gastrointestinal prophylaxis. Continue on Protonix. 10. Deep vein thrombosis prophylaxis. Continue on Lovenox. cc: Ivelisse Sparks MD
[2018-12-15] MEDS: MORPHINE IV PRN ×2 (02:35→04:56)
[2018-12-15] MEDS: LASIX IV SCH ×3 (02:35→17:27)
[2018-12-15] MEDS: ATIVAN IV PRN ×2 (02:36→09:10)
[2018-12-15] MEDS: ZOSYN 3.375 GM in NS 50 ML IV SCH ×4 (02:41→21:09)
[2018-12-15] MEDS: DUONEB (A & A) INH SCH ×6 (03:37→23:58)
[2018-12-15 04:50] LABS: ALLEN TEST YES; BE 6.1 mmoll (-3.0-3.0); BLOOD TYPE ARTERIAL; HCO3-(ACT) 29.7 mmoll (20.0-26.0); O2(CT) 17.7 mL/dL (15.0-23.0); O2HB 97.1 % (95.0-99.0); PO2(98.6) 100 mmHg (60-100); SAMPLE BLOOD; SAO2 100.6 % (95.0-100.0); SRATE 10 BPM; THB 12.9 g/dL (11.5-17.4); TVOL 650 mL; pH(98.6) 7.36 (7.35-7.45)
[2018-12-15 04:51] LABS: MODALITY VENTILATOR; PCO2(98.6) 59 mmHg (35-45)
[2018-12-15] MEDS: ZYVOX 600 MG/D5W 600 MG/300 ML IVPB IV SCH ×2 (04:55→17:28)
[2018-12-15 05:07] LABS: HEMATOCRIT 33.7 % (42.0-52.0); HEMOGLOBIN 10.3 g/dL (14.0-18.0); LYMPH# 0.18 X1000 (1.2-3.4); LYMPH% 2.2 % (20.5-51.1); MCH 30.6 PG (27-31); MCHC 30.6 g/dL (33-37); MONO# 0.45 X1000 (0.11-0.59); MONO% 5.4 % (1.7-9.3); NEUT# 7.69 X1000 (1.4-6.5); NEUT% 92.4 % (42.2-75.2); PLT 179 X1000 (130-400); RBC 3.37 XMIL (4.7-6.1); RDW 16.1 % (11.5-14.5); WBC 8.32 X1000 (4.8-10.8)
[2018-12-15 05:21] LABS: AGAP 14; BUN 30 mg/dL (8-22); CHLORIDE 97 mmol/L (98-107); COSMO 300; CREATININE 1.1 mg/dL (0.7-1.2); ESTIMATED GFR > 60; GLUCOSE 320 mg/dL (70-104); MAGNESIUM 2.1 mg/dL (1.5-2.7); POTASSIUM 4.5 mmol/L (3.5-5.1); SODIUM 141 mmol/L (136-145); TCO2 30 mmol/L (25-35)
[2018-12-15] MEDS: SOLU-MEDROL IV SCH ×3 (05:44→22:15)
[2018-12-15] MEDS: SYNTHROID IV SCH (06:27)
[2018-12-15] MEDS: SODIUM CHLORIDE 0.9% INJ PRN (06:28)
[2018-12-15] MEDS: HUMALOG SUBQ SCH ×4 (06:28→20:33)
[2018-12-15] MEDS ORDERED: SYNTHROID PO SCH (07:00)
--- NOTE | 2018-12-15 08:13 | Diag Imaging Result Doc PS360 ---
CHEST-PORTABLE - 12/15/2018 INDICATION: short of breath COMPARISON: 12/14/2018 FINDINGS: Stable support tubes in good position. Stable significant cardiomegaly and pulmonary vascular congestion. There has been significant improvement in aeration of the right lung base, now the right hemidiaphragm is visible. Stable small left pleural effusion. Stable to slightly improving pulmonary edema. IMPRESSION: Improved aeration of the right lung base. No new abnormality. Electronically signed by Dima Gan 12/15/2018 8:10 AM
[2018-12-15] MEDS: CARDIZEM PO SCH ×3 (09:10→17:27)
[2018-12-15] MEDS: ASPIRIN PO SCH (09:10)
[2018-12-15] MEDS: TAMIFLU PO SCH ×2 (09:10→20:32)
[2018-12-15] MEDS: LOVENOX SUBQ SCH (09:10)
[2018-12-15] MEDS: ELIQUIS PO SCH ×2 (09:10→20:33)
[2018-12-15] MEDS: ALTACE PO SCH ×2 (09:13→20:32)
[2018-12-15] MEDS ORDERED: LASIX IV ONE (09:43)
[2018-12-15 10:20] LABS: ALLEN TEST YES; BE 9.3 mmoll (-3.0-3.0); BLOOD TYPE ARTERIAL; HCO3-(ACT) 32.1 mmoll (20.0-26.0); METHB 1.1 % (0.0-1.5); O2(CT) 15.4 mL/dL (15.0-23.0); O2HB 95.2 % (95.0-99.0); PO2(98.6) 90 mmHg (60-100); SAMPLE BLOOD; SAO2 98.1 % (95.0-100.0); THB 11.4 g/dL (11.5-17.4)
[2018-12-15 10:22] LABS: MODALITY VENTILATOR; PCO2(98.6) 58 mmHg (35-45)
--- NOTE | 2018-12-15 14:08 | PROGRESS NOTE ---
DATE: 12/15/2018 SUBJECTIVE: The patient is resting comfortably on the ventilator, no acute events noted overnight. OBJECTIVE: Vital Signs: Temperature 97.6 degrees, blood pressure 167/83, heart rate 81, respirations 20, O2 saturation 99% on mechanical ventilator. General: This is a chronically ill- appearing elderly male lying in bed in no acute distress. Heart: S1, S2 normal. Regular rate and rhythm. Lungs: Equal air entry bilaterally. No wheezing, no rales. Abdomen: Positive bowel sounds. Soft, nontender, nondistended. Extremities: Trace pedal edema, no cyanosis, chronic venous insufficiency. Neuro: The patient is awake and alert. LABS: White blood cell count 8.3, hemoglobin 10, hematocrit 33, platelets 179, 000, sodium 141, potassium 4.5, chloride 97, CO2 30, BUN 30, creatinine 1.1, glucose 320, magnesium 2.1. Chest x-ray improved aeration right lung base. ASSESSMENT AND PLAN: 1. Acute on chronic hypoxemic and hypercapnic respiratory failure. Continue ventilatory management as directed by event planner. Hopefully patient will be able be extubated soon . 2. Pneumonia. Continue broad-spectrum antibiotics, bronchodilator therapy. 3. Pulmonary edema . Continue diuretic therapy. 4. Influenza, continue on Tamiflu. 5. Chronic obstructive pulmonary disease exacerbation. Continue steroids, bronchodilator therapy, supplemental oxygen . 6. Hypothyroidism, continue on Synthroid. 7. Atrial fibrillation. Patient is rate controlled. 8. Uncontrolled insulin-dependent diabetes mellitus. Will start the patient on Levemir. 9. Gastrointestinal prophylaxis. Continue on Protonix. 10. Deep vein thrombosis prophylaxis. The patient is on Lovenox. cc: Ivelisse Sparks MD [facility]
--- NOTE | 2018-12-15 14:22 | PULMONOLOGY PROGRESS NOTE ---
DATE: 12/15/2018 SUBJECTIVE: The patient is awake, alert. He is using his cellphone for texting. He has been afebrile over the last 24 hours. OBJECTIVE: Vital signs: Blood pressure 179/76, heart rate 85, respiratory rate 22, oxygen saturation 98%. HEENT: Pupils are equal and reactive. Oropharynx is clear. Neck: Supple. Chest: Reveals better air flow bilaterally with decreased wheezing. Cardiac: S1, S2. Abdomen: Soft and without hepatosplenomegaly. Extremities: Reveal 1+ peripheral edema. LABORATORIES: Chest x-ray reveals some better aeration with some decreased edema bilaterally. Arterial blood gas, pH 7.36, pCO2 of 59, PO2 of 100. Sodium 141, potassium 4.5, chloride 97, bicarbonate 30, BUN 30, creatinine 1.1, glucose 320. MICROBIOLOGY: Sputum culture is still pending. IMPRESSION: A 73-year-old with influenza, acute hypoxemic and acute hypercapnic respiratory failure, pneumonia, pleural effusions. Clinically he is improving. RECOMMENDATIONS: 1. Complete Tamiflu course. 2. Await sputum cultures. We will continue antibiotics pending final results of sputum. 3. Initiate spontaneous breathing trial and evaluate for extubation today if he does well. 4. Continue bronchodilators, deep vein thrombosis prophylaxis, and gastric acid suppression. CRITICAL CARE TIME: Time spent in critical care, 30+ minutes at a minimum. cc: Zac Blum MD
--- NOTE | 2018-12-15 17:12 | ECHO REPORT ---
ORDER DATE: 12/14/2018 ECHOCARDIOGRAPHIC MEASUREMENTS: 1. Interventricular septum 1.5, left ventricular posterior wall 1.2, diastolic diameter 5.0, left atrium 4.9, aorta 3.5 cm. Technically suboptimal study. Very poor acoustic window. 2. Aortic valve leaflets are calcified, not well visualized. 3. Pulmonic valve not well visualized. Mitral valve was normal. Tricuspid valve was normal. 4. There is left atrial enlargement. 5. Normal left ventricular cavity size. Estimated ejection fraction of 55%. Endocardium not well visualized in all views. 6. There is biatrial enlargement. 7. There is mild mitral regurgitation. Peak velocity across the tricuspid valve was 3 m/sec, there is mild tricuspid regurgitation. Pulmonary artery systolic pressure 46 mmHg. 8. Peak velocity across the aortic valve was 3 m/sec. Aortic valve area by VTI was 1.4 square cm. There is mild aortic stenosis. 9. Atrial fibrillation was noted. There is trace to mild aortic regurgitation. 10. There is no pericardial effusion. cc: Mario Pan MD
[2018-12-15] MEDS: PROTONIX IV SCH (17:28)
[2018-12-15] MEDS ORDERED: LOPRESSOR PO SCH (21:00)
[2018-12-15] MEDS: LEVEMIR SUBQ SCH (21:11)
[2018-12-15] MEDS ORDERED: INSULIN PEN NEEDLES ONE (21:33)
[2018-12-15] MEDS ORDERED: LABETALOL IV ONE (21:44)
[2018-12-16] MEDS ORDERED: BLISTEX MEDICATED BERRY LIP BALM TOP ONE (00:33)
[2018-12-16] MEDS: ATIVAN IV PRN (00:47)
[2018-12-16] MEDS: LASIX IV SCH ×3 (00:54→17:54)
[2018-12-16] MEDS ORDERED: BLISTEX MEDICATED BERRY LIP BALM TOP PRN (02:06)
[2018-12-16] MEDS ORDERED: NORVASC PO ONE (02:27)
[2018-12-16] MEDS: ZOSYN 3.375 GM in NS 50 ML IV SCH ×4 (03:00→20:36)
[2018-12-16] MEDS: DUONEB (A & A) INH SCH ×6 (03:07→23:04)
[2018-12-16] MEDS: ZYVOX 600 MG/D5W 600 MG/300 ML IVPB IV SCH ×2 (04:30→17:54)
[2018-12-16 04:33] LABS: ALLEN TEST YES; BE 16.7 mmoll (-3.0-3.0); BLOOD TYPE ARTERIAL; HCO3-(ACT) 37.9 mmoll (20.0-26.0); METHB 0.7 % (0.0-1.5); O2(CT) 16.4 mL/dL (15.0-23.0); O2HB 96.4 % (95.0-99.0); PO2(98.6) 94 mmHg (60-100); SAMPLE BLOOD; SAO2 99.1 % (95.0-100.0); pH(98.6) 7.46 (7.35-7.45)
[2018-12-16 04:34] LABS: MODALITY BI PAP; PCO2(98.6) 61 mmHg (35-45)
[2018-12-16] MEDS: SOLU-MEDROL IV SCH ×3 (05:42→22:03)
[2018-12-16] MEDS: HUMALOG SUBQ SCH ×4 (06:13→21:19)
[2018-12-16] MEDS: SYNTHROID IV SCH (06:13)
--- NOTE | 2018-12-16 06:21 | Diag Imaging Result Doc PS360 ---
EXAM: CHEST-PORTABLE HISTORY: short of breath TECHNIQUE: Portable chest single view COMPARISON: 12/15/2018 FINDINGS: The lungs are well expanded. The heart is enlarged. There is vascular distention. Infiltrates are slightly less prominent. There is a [id number] left pleural effusion with basilar atelectasis. Trace right pleural fluid. IMPRESSION: Mild interval improvement. Electronically signed by Reji Lea 12/16/2018 6:19 AM
[2018-12-16 06:47] LABS: CALCIUM 8.9 mg/dL (8.8-10.2); CREATININE 1.2 mg/dL (0.7-1.2); MAGNESIUM 2.5 mg/dL (1.5-2.7); POTASSIUM 4.6 mmol/L (3.5-5.1)
[2018-12-16 06:50] LABS: HEMATOCRIT 38.1 % (42.0-52.0); HEMOGLOBIN 12.2 g/dL (14.0-18.0); IMM GRAN# 0.03 X1000 (0.0-0.04); IMM GRAN% 0.4 % (0.0-0.5); LYMPH# 0.32 X1000 (1.2-3.4); LYMPH% 4.2 % (20.5-51.1); MCH 31.9 PG (27-31); MCV 99.7 FL (81-99); MONO# 0.29 X1000 (0.11-0.59); MONO% 3.8 % (1.7-9.3); MPV 9.9 FL (7.4-10.4); NEUT% 91.6 % (42.2-75.2); PLT 192 X1000 (130-400); RBC 3.82 XMIL (4.7-6.1); RDW 16.3 % (11.5-14.5); WBC 7.54 X1000 (4.8-10.8)
[2018-12-16] MEDS ORDERED: APRESOLINE IV PRN (07:10)
[2018-12-16] MEDS: LANOXIN PO SCH (08:30)
[2018-12-16] MEDS: TAMIFLU PO SCH ×2 (08:31→20:35)
[2018-12-16] MEDS: LOVENOX SUBQ SCH (08:31)
[2018-12-16] MEDS: ELIQUIS PO SCH ×2 (08:31→20:35)
[2018-12-16] MEDS: LEVEMIR SUBQ SCH ×2 (08:31→20:32)
[2018-12-16] MEDS: CARDIZEM PO SCH ×3 (08:31→17:54)
[2018-12-16] MEDS: LOPRESSOR PO SCH ×2 (08:31→20:35)
[2018-12-16] MEDS: ASPIRIN PO SCH (08:31)
[2018-12-16] MEDS: ALTACE PO SCH ×2 (08:31→20:31)
[2018-12-16] MEDS ORDERED: LABETALOL IV PRN (12:20)
--- NOTE | 2018-12-16 13:09 | PULMONOLOGY PROGRESS NOTE ---
DATE: 12/16/2018 SUBJECTIVE: Patient is awake, alert, and conversant. He reports he slept on the BiPAP last night with some slight discomfort and coordinating the breathing. He is tolerating p.o. intake. OBJECTIVE: Vital Signs: The patient has been afebrile for the last 24 hours. Blood pressure 181/105, respiratory rate 21, heart rate 99, oxygen saturation 97%. HEENT: Pupils are equal and reactive. Oropharynx is clear. Neck: Supple. Chest: Reveals good air entry bilaterally with decreased wheezing. Heart: S1-S2. Abdomen: Obese and soft. Extremities: 1 to 2+ peripheral edema. LABORATORIES: Chest x-ray reveals mild cardiomegaly, vascular distention, small to moderate left- sided pleural effusion, trace right effusion and decreased infiltrates. White blood count 7.54, hemoglobin 12.2, platelet count 192,000. Sodium 140, potassium 4.6, chloride 95, bicarbonate 34, BUN 34, creatinine 1.2. Arterial blood gas reveals a pH 7.46, pCO2 of 61, PO2 of 94. IMPRESSION: A 73-year-old with influenza, acute hypoxemic and acute hypercapnic respiratory failure, pneumonia, pleural effusions, and a component of cor pulmonale. The patient did have good diuresis. He is doing well off of the mechanical ventilator. RECOMMENDATION: 1. Complete Tamiflu. 2. Anticipate transfer to the floor. 3. Antibiotics can be discontinued from a pulmonary standpoint. 4. The patient will need ongoing nocturnal BiPAP or trilogy use. May consider a trilogy set because patient has some difficulty with the BiPAP. cc: Zac Blum MD
[2018-12-16] MEDS: APRESOLINE PO SCH ×3 (13:20→20:31)
--- NOTE | 2018-12-16 14:28 | PROGRESS NOTE ---
DATE: 12/16/2018 SUBJECTIVE: The patient is awake and alert. He states that he has a dry hacking cough, but otherwise is feeling a lot better today. OBJECTIVE: Vital Signs: Temperature 98.6, blood pressure 181/105, heart rate 99, respirations 21, O2 sats 96% on 4 L nasal cannula. Intake 1.1 L, output 5 L. General: This is a morbidly obese male lying comfortably in bed in no acute distress. HEENT: Head normocephalic, atraumatic. Heart: S1, S2 normal. Lungs: Equal air entry bilaterally. Diminished breath sounds at the bases. No crackles. No rales. Abdomen: Positive bowel sounds. Soft, nontender, nondistended. Extremities: The patient has chronic venous insufficiency. No edema noted. Neurologic: The patient is alert and oriented x 4. No focal neurologic deficits noted. LABS: White blood cell count 7.5, hemoglobin 12, hematocrit 38, platelets 192, 000. ABG: PH of 7.4, pCO2 61, PO2 94, bicarb 37. Sodium 140, potassium 4.6, chloride 95, CO2 33 , BUN 34, creatinine 1.2, glucose 228. Chest x-ray #1: Mild interval improvement. Small to moderate left pleural effusion. Infiltrates are improved. ASSESSMENT AND PLAN: 1. Acute hypoxemic and hypercapnic respiratory failure status post extubation. Continue to treat the underlying pneumonia and volume overload. 2. Pneumonia. Continue with antibiotic therapy and bronchodilator therapy. So far the cultures remain negative. 3. Pulmonary edema. Slowly improving. The patient remains on diuretic therapy. 4. Left pleural effusion with atelectasis. Continue to monitor closely. We will provide the patient with an incentive spirometer. 5. COPD exacerbation. Continue on steroids, bronchodilator therapy and supplemental oxygen. 6. Hypothyroidism. Continue on Synthroid. 7. Atrial fibrillation. Continue on Cardizem for rate control. The patient's Eliquis has been restarted. 8. Uncontrolled hypertension. Will adjust the patient's antihypertensive regimen. 9. Influenza A. Continue on Tamiflu. 10. Uncontrolled insulin-dependent diabetes mellitus. Will increase the patient 's Levemir dosage. Continue with sliding scale insulin. 11. DVT prophylaxis. The patient is on Eliquis. cc: MD LUCY Mora
[2018-12-16] MEDS: PROTONIX IV SCH (17:54)
[2018-12-16] MEDS: SODIUM CHLORIDE 0.9% INJ SCH (17:54)
[2018-12-16] MEDS: LIPITOR PO SCH (20:34)
[2018-12-17] MEDS: LASIX IV SCH ×3 (01:48→16:51)
[2018-12-17] MEDS: ZOSYN 3.375 GM in NS 50 ML IV SCH ×4 (01:48→20:36)
[2018-12-17] MEDS: DUONEB (A & A) INH SCH ×6 (03:40→23:30)
[2018-12-17 04:46] LABS: ALLEN TEST YES; BE 16.5 mmoll (-3.0-3.0); BLOOD TYPE ARTERIAL; HCO3-(ACT) 37.7 mmoll (20.0-26.0); METHB 1.5 % (0.0-1.5); O2HB 94.3 % (95.0-99.0); PO2(98.6) 83 mmHg (60-100); SAMPLE BLOOD; SAO2 97.4 % (95.0-100.0); THB 13.5 g/dL (11.5-17.4); pH(98.6) 7.49 (7.35-7.45)
[2018-12-17 04:47] LABS: MODALITY CANNULA
[2018-12-17 04:48] LABS: PCO2(98.6) 56 mmHg (35-45)
[2018-12-17 05:20] LABS: BASO# 0.01 X1000 (0.0-0.2); BASO% 0.1 % (0.0-0.8); EOS# 0.01 X1000 (0.0-0.7); EOS% 0.1 % (0.0-10.0); HEMATOCRIT 39.2 % (42.0-52.0); HEMOGLOBIN 12.6 g/dL (14.0-18.0); IMM GRAN# 0.04 X1000 (0.0-0.04); IMM GRAN% 0.5 % (0.0-0.5); LYMPH# 0.39 X1000 (1.2-3.4); LYMPH% 4.7 % (20.5-51.1); MCH 31.6 PG (27-31); MCHC 32.1 g/dL (33-37); MCV 98.2 FL (81-99); MONO# 0.45 X1000 (0.11-0.59); MONO% 5.4 % (1.7-9.3); MPV 9.6 FL (7.4-10.4); NEUT# 7.41 X1000 (1.4-6.5); NEUT% 89.2 % (42.2-75.2); PLT 189 X1000 (130-400); RBC 3.99 XMIL (4.7-6.1); RDW 16.2 % (11.5-14.5); WBC 8.31 X1000 (4.8-10.8)
[2018-12-17] MEDS: ZYVOX 600 MG/D5W 600 MG/300 ML IVPB IV SCH ×2 (05:31→16:51)
[2018-12-17] MEDS: SOLU-MEDROL IV SCH ×3 (05:31→21:12)
[2018-12-17] MEDS: APRESOLINE PO SCH ×3 (05:31→20:35)
[2018-12-17 05:37] LABS: LYMPHS 5 % (21-51); MONO 4 % (1-9); SEGS 91 % (42-75)
[2018-12-17 05:40] LABS: CALCIUM 8.9 mg/dL (8.8-10.2); CREATININE 1.2 mg/dL (0.7-1.2); MAGNESIUM 2.6 mg/dL (1.5-2.7)
[2018-12-17] MEDS: SYNTHROID PO SCH (06:28)
[2018-12-17] MEDS: HUMALOG SUBQ SCH ×4 (06:28→20:36)
--- NOTE | 2018-12-17 08:07 | Diag Imaging Result Doc PS360 ---
CHEST-PORTABLE - 12/17/2018 INDICATION: short of breath COMPARISON: 12/16/2018 FINDINGS: There is worsening airspace infiltrate in the perihilar right midlung. Stable cardiomegaly and pulmonary vascular congestion. Stable left lower lobe collapse and left pleural effusion. Stable hazy interstitial infiltrates bilaterally adjustment pulmonary edema. IMPRESSION: Worsening alveolar infiltrate in the right midlung. Other findings are unchanged. Electronically signed by Dima Gan 12/17/2018 8:05 AM
[2018-12-17] MEDS: LANOXIN PO SCH (09:58)
[2018-12-17] MEDS: TAMIFLU PO SCH ×2 (09:58→20:35)
[2018-12-17] MEDS: ELIQUIS PO SCH ×2 (09:58→20:35)
[2018-12-17] MEDS: ALTACE PO SCH ×2 (09:58→20:36)
[2018-12-17] MEDS: LEVEMIR SUBQ SCH ×2 (09:58→20:36)
[2018-12-17] MEDS: ASPIRIN PO SCH (09:59)
[2018-12-17] MEDS: CARDIZEM PO SCH ×3 (09:59→16:51)
[2018-12-17] MEDS: LOPRESSOR PO SCH ×2 (09:59→20:35)
--- NOTE | 2018-12-17 13:50 | PROGRESS NOTE ---
DATE: 12/17/2018 SUBJECTIVE: The patient is awake. OBJECTIVE: Vital signs are as follows: Temperature 97.6, pulse 81, respiratory 15, blood pressure is 161/102. Oxygen saturation 92%. HEENT: Head is atraumatic, normocephalic. Cardiovascular System: S1, S2. Respiratory System: Has evidence of good air entry bilaterally. Abdomen soft, nontender. No masses. Extremities: No evidence of edema. Central Nervous System: No obvious focal deficits noted. LABORATORY DATA: WBC is 8.31, hematocrit is 39.2 with a platelet count of 189, 000. AB.49/56/83/97.4%. Chemistry: Sodium is 135, potassium is 4.0, chloride is 187, bicarb is 35. creatinine is 1.2. X-ray of the chest shows evidence of worsening alveolar infiltrate in the right mid lung. ASSESSMENT AND PLAN: 1. Acute respiratory failure. Maintain patient on oxygen. Pulmonology following. 2. Pneumonia. Continue antibiotics. 3. Pulmonary edema. Maintain patient on diuretics. Will review patient's 2D echocardiogram. 4. Chronic obstructive pulmonary disease. Continue nebulized bronchodilators along with steroids. 5. Hypothyroidism. Continue levothyroxine. 6. Atrial fibrillation. Continue rate controlling agent as well as Eliquis. 7. Hypertension. Optimize blood pressure control. 8. Influenza A virus infection. Continue on Tamiflu. 9. Diabetes mellitus. Continue blood sugar as well as sliding scale insulin. 10. Deep vein thrombosis prophylaxis. The patient is on Eliquis. DISPOSITION: The patient can be transferred to the floor. cc: Vikas Johansen MD [facility]
[2018-12-17] MEDS: PROTONIX IV SCH (16:50)
[2018-12-17] MEDS: SODIUM CHLORIDE 0.9% INJ SCH (16:51)
--- NOTE | 2018-12-17 20:24 | PULMONOLOGY PROGRESS NOTE ---
DATE: 12/17/2018 SUBJECTIVE: The patient is awake, alert and conversant. He reports some congestion. He reports he did sleep well last night. OBJECTIVE: Vital Signs: The patient has been afebrile for the last 24 hours. Blood pressure 132/87, heart rate 89, respiratory rate 18, oxygen saturation 94% on nasal cannula. HEENT: Pupils are equal and reactive. Oropharynx is clear. Neck: Supple. Chest: Reveals bilateral rhonchi that partially clear with coughing. Cardiac: S1, S2. Abdomen: Obese and soft. Extremities: Reveal 1+ peripheral edema. LABORATORIES: Sodium 135, potassium 4.0, chloride 87, bicarbonate 35, BUN 38, creatinine 1.2. White blood count 8.31, hemoglobin 12.6, platelet count 189,000. Arterial blood gas: PH 7.49, pCO2 of 56, PO2 of 83. Chest x-ray reveals cardiomegaly with mild increased edema. Infiltrates in the mid lung strauss. IMPRESSION: A 73-year-old with: 1. Influenza. 2. Acute hypoxemic respiratory failure. 3. Acute hypercapnic respiratory failure. 4. Pleural effusions. 5. Component of cor pulmonale with fluid overload. He remains off mechanical ventilation. RECOMMENDATIONS: 1. Complete Tamiflu course. 2. Continue diuresis as tolerated. 3. Agree with transfer to the floor. 4. Continue to cycle BiPAP as tolerated. 5. Consider discontinuation of antibiotics. cc: Zac Blum MD
[2018-12-17] MEDS: LIPITOR PO SCH (20:35)
[2018-12-18] MEDS: ZOSYN 3.375 GM in NS 50 ML IV SCH ×4 (01:27→20:08)
[2018-12-18] MEDS: LASIX IV SCH ×3 (01:28→16:59)
[2018-12-18] MEDS: DUONEB (A & A) INH SCH ×6 (03:14→23:30)
[2018-12-18] MEDS: ZYVOX 600 MG/D5W 600 MG/300 ML IVPB IV SCH ×2 (06:30→16:59)
[2018-12-18] MEDS: SYNTHROID PO SCH ×2 (06:53→08:26)
[2018-12-18] MEDS: SOLU-MEDROL IV SCH ×3 (06:53→21:09)
[2018-12-18] MEDS: HUMALOG SUBQ SCH ×4 (06:54→20:09)
--- NOTE | 2018-12-18 07:18 | Diag Imaging Result Doc PS360 ---
EXAM: CHEST-PORTABLE 12/18/2018 HISTORY: short of breath TECHNIQUE: AP portable at 0557 COMMENT: There is a pleural effusion on the left. There is retrocardiac opacity and hazy opacity over both midlung strauss. There has been perceptible improvement in the opacity over the right lower lobe since 12/17/2018. Otherwise there has been no significant change. IMPRESSION: Improving pulmonary edema. Left lower lobe atelectasis versus pneumonia with left pleural effusion. Electronically signed by Frank Jenkins 12/18/2018 7:16 AM
[2018-12-18 07:50] LABS: BASO# 0.03 X1000 (0.0-0.2); BASO% 0.3 % (0.0-0.8); HEMOGLOBIN 14.1 g/dL (14.0-18.0); IMM GRAN# 0.04 X1000 (0.0-0.04); IMM GRAN% 0.5 % (0.0-0.5); LYMPH# 0.55 X1000 (1.2-3.4); LYMPH% 6.4 % (20.5-51.1); MCV 96.7 FL (81-99); MONO# 0.38 X1000 (0.11-0.59); MONO% 4.4 % (1.7-9.3); MPV 9.7 FL (7.4-10.4); NEUT# 7.58 X1000 (1.4-6.5); NEUT% 88.4 % (42.2-75.2); PLT 204 X1000 (130-400); RBC 4.55 XMIL (4.7-6.1); RDW 15.9 % (11.5-14.5); WBC 8.58 X1000 (4.8-10.8)
[2018-12-18] MEDS: MIRALAX PO SCH (08:20)
[2018-12-18] MEDS: LEVEMIR SUBQ SCH ×2 (08:21→20:09)
[2018-12-18] MEDS: ASPIRIN PO SCH (08:22)
[2018-12-18] MEDS: ELIQUIS PO SCH ×2 (08:22→20:08)
[2018-12-18] MEDS: LANOXIN PO SCH (08:22)
[2018-12-18] MEDS: TAMIFLU PO SCH ×2 (08:22→20:09)
[2018-12-18] MEDS: APRESOLINE PO SCH ×3 (08:22→20:09)
[2018-12-18] MEDS: ALTACE PO SCH ×2 (08:22→20:08)
[2018-12-18] MEDS: LOPRESSOR PO SCH ×2 (08:22→20:09)
[2018-12-18] MEDS: CARDIZEM PO SCH ×3 (08:22→16:59)
[2018-12-18 08:35] LABS: AGAP 15; BUN 40 mg/dL (8-22); CALCIUM 9.5 mg/dL (8.8-10.2); CHLORIDE 90 mmol/L (98-107); COSMO 299; CREATININE 1.1 mg/dL (0.7-1.2); ESTIMATED GFR > 60; GLUCOSE 283 mg/dL (70-104); MAGNESIUM 2.7 mg/dL (1.5-2.7); SODIUM 140 mmol/L (136-145); TCO2 35 mmol/L (25-35)
[2018-12-18 10:05] LABS: BANDS 2 % (0-1); LYMPHS 2 % (21-51); MONO 2 % (1-9); SEGS 92 % (42-75)
--- NOTE | 2018-12-18 14:56 | PROGRESS NOTE ---
DATE: 12/18/2018 SUBJECTIVE: The patient is resting in bed. OBJECTIVE: Vital signs: Vital signs are as follows: Temperature 98.2 degrees, pulse 93, respirations 20, blood pressure 169/880 oxygen saturation is 98%. HEENT: Patient is atraumatic, normocephalic. Cardiovascular system: S1, S2. Irregular. Respiratory system: Has evidence of good air entry bilaterally. Abdomen: Soft, nontender. No masses felt. Central nervous system: No obvious focal deficits noted. LABS: Labs are as follows: WBC is 8.58, hematocrit 44 with a platelet count of 204. Sodium is 140, potassium 4.0, chloride is 90, bicarbonate is 35. BUN is 40, creatinine is 1.1. X-RAY: X-ray of the chest shows evidence of improving pulmonary edema, as well as the left lower lobe atelectasis versus pneumonia with left lower pleural effusion. ASSESSMENT AND PLAN: 1. Acute respiratory failure. Maintain patient on oxygen. Address primary pulmonary conditions, specifically pneumonia and also pulmonary edema. The patient is being followed up by the pulmonary team. 2. Pneumonia. Continue antibiotics. 3. Pulmonary edema. Maintain patient on diuretics. Will need to monitor intake and output, as well as daily weights. The patient had a two-dimensional echocardiogram of the heart that shows normal left ventricular cavity size consistent with ejection fraction of about 55%. 4. chronic obstructive pulmonary disease. Continue nebulized bronchodilators, along with steroids. 5. Hypothyroidism. Continue levothyroxine. 6. Atrial fibrillation. Continue rate controlling agent, Eliquis. 7. Hypertension. Optimize the patient's blood pressure control. 8. Influenza A virus infection. Continue on Tamiflu. 9. Diabetes mellitus. Continue blood sugar monitor, as well as sliding scale insulin. 10. Deep vein thrombosis prophylaxis. The patient is on Eliquis. 11. Gastrointestinal prophylaxis. Proton pump inhibitor. cc: Vikas Johansen MD
[2018-12-18] MEDS: PROTONIX IV SCH (16:59)
[2018-12-18] MEDS: SODIUM CHLORIDE 0.9% INJ SCH (16:59)
[2018-12-18] MEDS: LIPITOR PO SCH (20:08)
[2018-12-18] MEDS ORDERED: CALMOSEPTINE OINTMENT TOP PRN (22:38)
[2018-12-19] MEDS: LASIX IV SCH ×2 (01:00→09:51)
[2018-12-19] MEDS: ZOSYN 3.375 GM in NS 50 ML IV SCH ×4 (01:00→20:42)
--- NOTE | 2018-12-19 01:49 | PULMONOLOGY PROGRESS NOTE ---
DATE: 12/18/2018 SUBJECTIVE: Patient is awake, alert, and conversant. His shortness of breath continues to diminish. OBJECTIVE: Vital Signs: The patient had good urine output. Blood pressure 169/88, heart rate 93, respiratory rate 21, oxygen 9saturation 8% on nasal cannula. HEENT: Pupils are equal and reactive. Oropharynx is clear. Neck: Supple. Chest: Reveals diminished breath sounds in the lung bases. Cardiac: S1-S2. Abdomen: Obese and soft. Extremities: Revealed decreasing edema. LABORATORIES: Chest x-ray reveals decreasing pulmonary edema, with decreasing effusions/atelectasis. IMPRESSION: A 73-year-old with: 1. Influenza. 2. Acute hypoxemic respiratory failure. 3. Acute hypercapnic respiratory failure. 4. Pleural effusions. 5. Cor pulmonale, with fluid overload. He continues to improve. RECOMMENDATIONS: 1. Complete Tamiflu course today. 2. Continue diuresis, as his blood pressure and BUN will tolerate. 3. Continue to cycle BiPAP at bedtime and p.r.n. 4. Okay to discontinue antibiotics from a Pulmonary standpoint. His sputum cultures following mechanical ventilation reveals sparse growth of normal marlin. He has no fevers, no white blood count, and his chest x-ray continues to improve. cc: Zac Blum MD
[2018-12-19] MEDS: DUONEB (A & A) INH SCH ×6 (03:47→23:45)
[2018-12-19] MEDS: ZYVOX 600 MG/D5W 600 MG/300 ML IVPB IV SCH ×2 (05:56→17:22)
[2018-12-19] MEDS: APRESOLINE PO SCH ×3 (05:57→20:44)
[2018-12-19] MEDS: HUMALOG SUBQ SCH ×5 (05:57→20:45)
[2018-12-19] MEDS: SYNTHROID PO SCH ×2 (05:57→07:18)
--- NOTE | 2018-12-19 07:31 | Diag Imaging Result Doc PS360 ---
EXAM: CHEST-PORTABLE INDICATION: short of breath TECHNIQUE: One view COMPARISON: 12/18/2018 FINDINGS: The left pleural effusion with adjacent atelectasis and/or infiltrate at the left lung base is stable. The pulmonary edema is stable to marginally improved. No new consolidation is identified. Cardiac silhouette is stable. IMPRESSION: Stable to marginal improvement of edema. Electronically signed by Bob Sainz 12/19/2018 7:29 AM
[2018-12-19 07:41] LABS: BASO# 0.04 X1000 (0.0-0.2); BASO% 0.4 % (0.0-0.8); HEMOGLOBIN 13.4 g/dL (14.0-18.0); IMM GRAN# 0.07 X1000 (0.0-0.04); IMM GRAN% 0.8 % (0.0-0.5); LYMPH# 0.78 X1000 (1.2-3.4); LYMPH% 8.5 % (20.5-51.1); MCH 30.2 PG (27-31); MCHC 31.2 g/dL (33-37); MCV 97.1 FL (81-99); MONO# 0.66 X1000 (0.11-0.59); MONO% 7.2 % (1.7-9.3); MPV 9.8 FL (7.4-10.4); NEUT# 7.61 X1000 (1.4-6.5); NEUT% 83.1 % (42.2-75.2); PLT 195 X1000 (130-400); RBC 4.43 XMIL (4.7-6.1); RDW 15.5 % (11.5-14.5); WBC 9.16 X1000 (4.8-10.8)
[2018-12-19 08:01] LABS: CALCIUM 8.9 mg/dL (8.8-10.2); CREATININE 1.3 mg/dL (0.7-1.2); POTASSIUM 4.1 mmol/L (3.5-5.1)
[2018-12-19 08:43] LABS: BANDS 4 % (0-1); LYMPHS 8 % (21-51); MONO 2 % (1-9); SEGS 82 % (42-75)
[2018-12-19] MEDS ORDERED: PREDNISONE PO SCH (09:00)
[2018-12-19] MEDS: ALTACE PO SCH ×2 (09:50→20:44)
[2018-12-19] MEDS: CARDIZEM PO SCH ×3 (09:50→17:22)
[2018-12-19] MEDS: LANOXIN PO SCH (09:50)
[2018-12-19] MEDS: ELIQUIS PO SCH ×2 (09:50→20:44)
[2018-12-19] MEDS: LEVEMIR SUBQ SCH ×2 (09:51→20:46)
[2018-12-19] MEDS: ASPIRIN PO SCH (09:51)
[2018-12-19] MEDS: LOPRESSOR PO SCH ×2 (09:51→20:44)
[2018-12-19] MEDS: MIRALAX PO SCH (09:51)
[2018-12-19] MEDS ORDERED: ZOSYN ONE (09:52)
--- NOTE | 2018-12-19 15:55 | PROGRESS NOTE ---
DATE: 12/19/2018 SUBJECTIVE: The patient is seated on the side of the bed. OBJECTIVE: Vital signs: Temperature 97.6 degrees, pulse 87, respiratory rate is 16-19, blood pressure is 182/91, oxygen saturation is 98%. HEENT: Atraumatic, normocephalic. Cardiovascular: S1, S2. Respiratory system: Air entry bilaterally. Abdomen: Full, nontender. No masses felt. Extremities: Darkish discoloration in both lower extremities from stasis dermatitis. Central nervous system: No obvious focal deficits noted. DIAGNOSTIC STUDIES: WBC is 9.16, hematocrit is 43, platelet count of 195,000. Sodium is 139, potassium is 4.1, chloride 91, bicarbonate 36, BUN is 44, creatinine 1.1. X-ray chest shows evidence of stable to marginal improvement of edema. No new consolidation is noted. ASSESSMENT AND PLAN: 1. Acute respiratory failure. Maintain patient on oxygen. Address primary pulmonary conditions, including pneumonia, as well as pulmonary edema. The patient being followed by the pulmonary team. 2. Chronic obstructive pulmonary disease (COPD). Continue nebulized bronchodilators along with steroids. 3. Hypothyroidism. Continue levothyroxine. 4. Atrial fibrillation. Continue rate-controlling agent, as well as Eliquis. 5. Hypertension. Optimize blood pressure control. 6. Diabetes mellitus. Continue blood sugar monitoring as well as sliding scale insulin. 7. Deep vein thrombosis (DVT) prophylaxis. The patient is on Eliquis. 8. Gastrointestinal (GI) prophylaxis. Continue PPI. cc: Vikas Johansen MD
[2018-12-19] MEDS: SODIUM CHLORIDE 0.9% INJ SCH (17:22)
[2018-12-19] MEDS: PROTONIX IV SCH (17:22)
[2018-12-19] MEDS: LIPITOR PO SCH (20:44)
[2018-12-20] MEDS: ZOSYN 3.375 GM in NS 50 ML IV SCH ×4 (02:04→22:00)
[2018-12-20] MEDS: DUONEB (A & A) INH SCH ×6 (04:02→23:42)
--- NOTE | 2018-12-20 04:25 | PULMONOLOGY PROGRESS NOTE ---
DATE: 12/19/2018 SUBJECTIVE: Patient is awake, alert, and conversant. The patient reports he is wearing his BiPAP, although notes in the chart indicates that he has refused. He is without specific complaints. OBJECTIVE: The patient has been afebrile for the last 24 hours. He has had significant weight loss during this hospitalization. Blood pressure 154/96, heart rate 89, respiratory rate 22, oxygen saturation 97%. HEENT: Pupils are equal and reactive. Oropharynx is clear. Neck is supple. Chest reveals prolonged expiratory phase with occasional rhonchi with minimal wheezing. Cardiac: S1, S2. Abdomen is soft. Extremities reveal chronic stasis dermatitis with minimal edema. LABORATORIES: Chest x-ray reveals continued improvement with decreased pulmonary edema with small effusion at the left base. White blood count 9.16, hemoglobin 13.4, platelet count 195,000. Sodium 139, potassium 4.1, chloride 91, bicarbonate 36, BUN 44, creatinine 1.3. IMPRESSION: A 73-year-old with 1. Influenza. 2. Acute hypoxemic respiratory failure requiring intubation. 3. Acute hypercapnic respiratory failure requiring intubation. 4. Pleural effusions. 5. Cor pulmonale. 6. Overall, patient continues to improve. He appears to be reaching the limit of diuresis with an increasing BUN and creatinine. He has completed his Tamiflu course. RECOMMENDATIONS: 1. Encourage patient to wear BiPAP at bedtime and p.r.n. 2. Continue oxygen for hypoxemic respiratory failure. 3. Discontinue IV diuretics. Will initiate a maintenance dose of Lasix. 4. Continue bronchial hygiene. 5. Continue physical therapy. 6. The patient continues to improve. He should be approaching discharge from a pulmonary standpoint. I do not see an indication for antibiotics at the time of discharge. cc: Zac Blum MD
[2018-12-20 05:10] LABS: ALLEN TEST YES; BE 11.2 mmoll (-3.0-3.0); BLOOD TYPE ARTERIAL; HCO3-(ACT) 33.6 mmoll (20.0-26.0); METHB 0.9 % (0.0-1.5); O2(CT) 25.3 mL/dL (15.0-23.0); O2HB 96.6 % (95.0-99.0); PO2(98.6) 153 mmHg (60-100); SAMPLE BLOOD; SAO2 99.4 % (95.0-100.0); THB 18.5 g/dL (11.5-17.4); pH(98.6) 7.45 (7.35-7.45)
[2018-12-20 05:11] LABS: MODALITY BI PAP
[2018-12-20 05:37] LABS: PCO2(98.6) 55 mmHg (35-45)
[2018-12-20] MEDS: ZYVOX 600 MG/D5W 600 MG/300 ML IVPB IV SCH ×2 (06:12→18:51)
[2018-12-20] MEDS: HUMALOG SUBQ SCH ×4 (06:13→22:03)
[2018-12-20] MEDS: SYNTHROID PO SCH (06:13)
[2018-12-20] MEDS: APRESOLINE PO SCH ×3 (06:13→22:02)
--- NOTE | 2018-12-20 07:53 | Diag Imaging Result Doc PS360 ---
EXAM: CHEST-2 VIEWS HISTORY: abnormal exam TECHNIQUE: Chest two views COMPARISON: 12/19/2018 FINDINGS: The lungs are well expanded except for left basilar atelectasis. There may be an underlying infiltrate as well. There are small pleural effusions. Heart is borderline mildly prominent. No pulmonary edema. IMPRESSION: Stable chest. Electronically signed by Reji Lea 12/20/2018 7:51 AM
[2018-12-20 08:03] LABS: ALB/GLOB RATIO 1.1; ALBUMIN 3.4 g/dL (3.5-5.0); CALCIUM 8.9 mg/dL (8.8-10.2); CREATININE 1.2 mg/dL (0.7-1.2); POTASSIUM 3.9 mmol/L (3.5-5.1); TOTAL BILIRUBIN 1.11 mg/dL (0.20-1.00); TOTAL PROTEIN 6.5 g/dL (6.3-8.3)
[2018-12-20] MEDS: PREDNISONE PO SCH (08:13)
[2018-12-20] MEDS: LANOXIN PO SCH (08:13)
[2018-12-20] MEDS: LASIX PO SCH (08:13)
[2018-12-20] MEDS: LOPRESSOR PO SCH ×2 (08:13→22:03)
[2018-12-20] MEDS: CARDIZEM PO SCH ×3 (08:14→18:52)
[2018-12-20] MEDS: MIRALAX PO SCH (08:14)
[2018-12-20] MEDS: ALTACE PO SCH ×2 (08:14→22:02)
[2018-12-20] MEDS: ASPIRIN PO SCH (08:14)
[2018-12-20] MEDS: ELIQUIS PO SCH ×2 (08:14→22:02)
[2018-12-20] MEDS: LEVEMIR SUBQ SCH ×2 (08:25→22:03)
--- NOTE | 2018-12-20 15:46 | PROGRESS NOTE ---
DATE: 12/20/2018 SUBJECTIVE: The patient is awake sitting on the side of the bed. OBJECTIVE: Vital signs: Vital signs are as follows: Temperature 97.9 degrees, pulse 84, respirations 20, blood pressure is 134/66 with oxygen saturation 94%. HEENT: Atraumatic, normocephalic. Cardiovascular system: Patient is tachycardic. Respiratory system: Occasional rhonchi noted in the lung strauss. Abdomen: Abdomen is obese. No masses felt. Extremities: Extremities have discoloration to both legs. Central nervous system: No obvious focal deficit noted. LABS: AB.45/55/153/96.6%. Chemistry: Sodium is 141, potassium 3.9, chloride is 95, bicarbonate is 36. BUN is 42, creatinine is 1.2. X-RAYS: X-ray of the chest shows there might be an underlying infiltrate. There is also evidence of left basilar atelectasis. Small pleural effusions. ASSESSMENT AND PLAN: 1. Acute respiratory failure. Maintain patient on oxygen. Treat primary lung conditions, specifically pneumonia as well as pulmonary edema. Pulmonary team is following. 2. Chronic obstructive pulmonary disease. Continue nebulized bronchodilators, as well as steroids. 3. Hypothyroidism. Continue levothyroxine. 4. Atrial fibrillation. Continue rate controlling agent as well as Eliquis. 5. Hypertension. Optimize blood pressure control. 6. Diabetes mellitus. Continue blood sugar monitoring, as well as sliding scale insulin. 7. Deep vein thrombosis prophylaxis. Patient is on Eliquis. 8. Gastrointestinal prophylaxis. Continue proton pump inhibitor. cc: Vikas Johansen MD
[2018-12-20] MEDS: PROTONIX IV SCH (18:51)
[2018-12-20] MEDS: SODIUM CHLORIDE 0.9% INJ SCH (18:52)
[2018-12-20] MEDS: LIPITOR PO SCH (22:03)
[2018-12-21] MEDS: ZOSYN 3.375 GM in NS 50 ML IV SCH ×4 (01:50→23:46)
[2018-12-21] MEDS: DUONEB (A & A) INH SCH ×6 (03:47→23:15)
[2018-12-21] MEDS: APRESOLINE PO SCH ×3 (05:09→21:05)
[2018-12-21] MEDS: ZYVOX 600 MG/D5W 600 MG/300 ML IVPB IV SCH ×2 (05:09→18:09)
[2018-12-21] MEDS: SYNTHROID PO SCH (05:31)
[2018-12-21] MEDS: HUMALOG SUBQ SCH ×4 (06:02→21:06)
[2018-12-21] MEDS: ALTACE PO SCH ×2 (12:53→21:05)
[2018-12-21] MEDS: ELIQUIS PO SCH ×2 (12:53→21:05)
[2018-12-21] MEDS: PREDNISONE PO SCH (12:53)
[2018-12-21] MEDS: MIRALAX PO SCH (12:53)
[2018-12-21] MEDS: ASPIRIN PO SCH (12:54)
[2018-12-21] MEDS: LANOXIN PO SCH (12:54)
[2018-12-21] MEDS: LOPRESSOR PO SCH ×2 (12:54→21:05)
[2018-12-21] MEDS: CARDIZEM PO SCH ×3 (12:55→21:05)
[2018-12-21] MEDS: LEVEMIR SUBQ SCH ×2 (12:56→21:05)
[2018-12-21] MEDS ORDERED: NS 500 ML ONE (13:24)
[2018-12-21] MEDS: SODIUM CHLORIDE 0.9% INJ SCH (18:10)
[2018-12-21] MEDS: PROTONIX IV SCH (18:10)
[2018-12-21] MEDS: LASIX PO SCH (18:14)
--- NOTE | 2018-12-21 19:24 | PROGRESS NOTE ---
DATE: 12/21/2018 SUBJECTIVE: Today, Mr. Alexander refers to be feeling a lot better. Still has some residual cough and on 4 L of nasal cannula. OBJECTIVE: Vital signs: Blood pressure is 180/69, pulse is 81, respirations 20, temperature is 97.6. Patient is saturating 99% on 4 L. General: Mr. Alexander is a 73-year-old, male. He is in bed. BMI is 33.5. He is in mild respiratory distress. HEENT: Mucosa is pink and moist. Anicteric. Acyanotic. Neck: Supple. Chest: Good air entry bilateral. There are still some end-expiratory rhonchi with some wheezing and crackles. Cardiovascular: Regular rate and rhythm. No murmurs, no rubs, no gallops. Abdomen: Soft. Extremities: Some chronic changes of stasis dermatitis. [employer]: Patient is awake, alert, and oriented. LABORATORY DATA: None for today. MEDICATIONS: Have all been reviewed. The patient is still on Zyvox and Zosyn. Prednisone has been down-titrated to 10 mg daily. ASSESSMENT: 1. Acute on chronic hypoxemic respiratory failure. 2. Acute hypercarbic respiratory failure. 3. Chronic obstructive pulmonary disease with cor pulmonale. 4. Congestive heart failure with preserved ejection fraction. 5. Mild aortic stenosis on echocardiogram. 6. Atrial fibrillation currently rate controlled. Patient is on Eliquis for stroke prophylaxis. 7. Diabetes mellitus controlled. PLAN: Mr. Alexander is going to continue with bronchodilation therapy, antibiotics and steroid. He is also getting respiratory therapy as well as physical therapy. His care will be resumed by Dr. Johansen tomorrow. cc: Fito Lambert MD
[2018-12-21] MEDS: LIPITOR PO SCH (21:04)
[2018-12-22] MEDS: DUONEB (A & A) INH SCH ×6 (03:30→23:22)
[2018-12-22] MEDS: ZOSYN 3.375 GM in NS 50 ML IV SCH ×4 (05:13→21:19)
[2018-12-22] MEDS: APRESOLINE PO SCH ×3 (05:13→21:15)
[2018-12-22] MEDS: HUMALOG SUBQ SCH ×4 (06:30→21:15)
[2018-12-22] MEDS: SYNTHROID PO SCH (06:30)
[2018-12-22] MEDS: LASIX PO SCH (08:31)
[2018-12-22] MEDS: PREDNISONE PO SCH (08:31)
[2018-12-22] MEDS: LANOXIN PO SCH (08:32)
[2018-12-22] MEDS: ELIQUIS PO SCH ×2 (08:32→21:15)
[2018-12-22] MEDS: CARDIZEM PO SCH ×3 (08:32→21:15)
[2018-12-22] MEDS: ASPIRIN PO SCH (08:36)
[2018-12-22] MEDS: ALTACE PO SCH ×2 (08:37→21:14)
[2018-12-22] MEDS: LOPRESSOR PO SCH ×2 (08:38→21:15)
[2018-12-22] MEDS: ZYVOX 600 MG/D5W 600 MG/300 ML IVPB IV SCH ×2 (09:38→18:31)
[2018-12-22] MEDS ORDERED: INSULIN PEN NEEDLES ONE (11:45)
[2018-12-22] MEDS: LEVEMIR SUBQ SCH ×2 (12:14→21:15)
[2018-12-22] MEDS: MIRALAX PO SCH (13:58)
--- NOTE | 2018-12-22 15:27 | PROGRESS NOTE ---
DATE: 12/22/2018 SUBJECTIVE: Patient resting in bed. OBJECTIVE: Vital signs: Temperature 97.7 degrees, pulse is 90, respiratory rate is 16, blood pressure 148/105. O2 saturation is 100%. HEENT: Atraumatic, normocephalic. Cardiovascular: S1, S2. Respiratory: Good entry bilaterally. Abdomen: Obese, nontender. Extremities: No edema in the lower extremities. Central nervous system: No obvious focal deficit. LABORATORY DATA: Blood sugar is 235. ASSESSMENT AND PLAN: 1. Acute respiratory failure. Continue patient on oxygen. Treat primary lung condition specifically pneumonia as well as pulmonary edema. Pulmonary team following. 2. Chronic obstructive pulmonary disease. Continue nebulized bronchodilators as well as steroids. 3. Hypothyroidism. Continue levothyroxine. 4. Atrial fibrillation. Continue rate controlling agent as well as Eliquis. 5. Hypertension. Optimize blood pressure control. 6. Diabetes mellitus. Continue blood sugar monitoring as well as sliding scale insulin. 7. Deep vein thrombosis prophylaxis. The patient is on Eliquis. 8. Gastrointestinal prophylaxis. PPI. cc: Vikas Johansen MD
[2018-12-22] MEDS: PROTONIX IV SCH (16:52)
[2018-12-22] MEDS: LIPITOR PO SCH (21:15)
[2018-12-23] MEDS: DUONEB (A & A) INH SCH ×6 (03:40→23:30)
[2018-12-23] MEDS: ZOSYN 3.375 GM in NS 50 ML IV SCH ×2 (04:44→10:29)
[2018-12-23] MEDS: HUMALOG SUBQ SCH ×4 (06:08→22:25)
[2018-12-23] MEDS: ZYVOX 600 MG/D5W 600 MG/300 ML IVPB IV SCH (06:21)
[2018-12-23] MEDS: APRESOLINE PO SCH ×3 (06:21→22:24)
[2018-12-23] MEDS: SYNTHROID PO SCH (06:21)
[2018-12-23 07:32] LABS: EOS# 0.38 X1000 (0.0-0.7); HEMATOCRIT 41.6 % (42.0-52.0); IMM GRAN# 0.07 X1000 (0.0-0.04); IMM GRAN% 0.7 % (0.0-0.5); LYMPH# 1.92 X1000 (1.2-3.4); LYMPH% 20.3 % (20.5-51.1); MCH 30.4 PG (27-31); MCHC 31.3 g/dL (33-37); MCV 97.2 FL (81-99); MONO% 7.4 % (1.7-9.3); MPV 9.5 FL (7.4-10.4); NEUT# 6.39 X1000 (1.4-6.5); NEUT% 67.6 % (42.2-75.2); PLT 152 X1000 (130-400); RBC 4.28 XMIL (4.7-6.1); RDW 15.7 % (11.5-14.5); WBC 9.46 X1000 (4.8-10.8)
--- NOTE | 2018-12-23 07:44 | Diag Imaging Result Doc PS360 ---
EXAM: CHEST-1 VIEW INDICATION: SOB TECHNIQUE: One view COMPARISON: 12/20/2018 FINDINGS: Bilateral small effusions, largest on the left, are stable. There is stable left basilar atelectasis. No new consolidation is identified. Cardiac silhouette is stable. IMPRESSION: Essentially stable chest. Electronically signed by Bob Sainz 12/23/2018 7:41 AM
[2018-12-23 07:46] LABS: AGAP 9; BUN 27 mg/dL (8-22); CHLORIDE 97 mmol/L (98-107); COSMO 280; CREATININE 1.1 mg/dL (0.7-1.2); ESTIMATED GFR > 60; GLUCOSE 125 mg/dL (70-104); POTASSIUM 4.1 mmol/L (3.5-5.1); SODIUM 137 mmol/L (136-145); TCO2 31 mmol/L (25-35)
[2018-12-23] MEDS: ALTACE PO SCH ×2 (10:15→22:23)
[2018-12-23] MEDS: LASIX PO SCH (10:15)
[2018-12-23] MEDS: LOPRESSOR PO SCH ×2 (10:16→22:24)
[2018-12-23] MEDS: LANOXIN PO SCH (10:16)
[2018-12-23] MEDS: ELIQUIS PO SCH ×2 (10:17→22:23)
[2018-12-23] MEDS: CARDIZEM PO SCH ×3 (10:17→22:23)
[2018-12-23] MEDS: ASPIRIN PO SCH (10:17)
[2018-12-23] MEDS: LEVEMIR SUBQ SCH ×2 (10:18→22:24)
[2018-12-23] MEDS: PREDNISONE PO SCH (10:18)
[2018-12-23] MEDS: MIRALAX PO SCH (10:18)
[2018-12-23] MEDS ORDERED: LASIX IV ONE (10:29)
--- NOTE | 2018-12-23 13:44 | PULMONOLOGY PROGRESS NOTE ---
DATE: 12/23/2018 SUBJECTIVE: The patient is awake, alert, and conversant. He reports he has been doing well this weekend. OBJECTIVE: The patient is afebrile. Blood pressure 164/76, heart rate 81, respiratory rate 19, oxygen saturation 100% on 4 L per nasal cannula.HEENT: Pupils are equal and reactive. Oropharynx is clear. Neck: Is supple. Chest: Reveals crackles at the left base. Cardiac: S1-S2. Abdomen: Obese and soft. Extremities: Reveal trace edema. LABORATORIES: Chest x-ray reveals small effusions, left greater than right, without dense consolidation. White blood count 9.46, hemoglobin 13.0, platelet count 152,000. Sodium 137, potassium 4.1, chloride 97, bicarbonate 31, BUN 27, creatinine 1.1, glucose 125. IMPRESSION: 1. 73-year-old with admission to the hospital with influenza. 2. Acute hypoxemic respiratory failure. 3. Acute hypercapnic respiratory failure. 4. Pleural effusions. 5. With cor pulmonale. DISCUSSION: The patient admitted to the hospital with influenza and problems outlined above. The patient required intubation and mechanical ventilation but has been doing well. He has completed his course of Tamiflu. The patient was admitted 10 days ago. RECOMMENDATIONS: 1. Discontinue respiratory isolation. 2. Maintain intake and output as tolerated. 3. Cycle BiPAP at bedtime and p.r.n. The patient has an outpatient CPAP unit and will likely need another sleep study. 4. Discontinue antibiotics. 5. Followup chest x-ray tomorrow. Anticipate discharge soon. cc: Zac Blum MD
[2018-12-23] MEDS: PROTONIX IV SCH (16:42)
--- NOTE | 2018-12-23 17:21 | PROGRESS NOTE ---
DATE: 12/23/2018 SUBJECTIVE: The patient resting in bed. Not in any obvious distress. OBJECTIVE: Vital signs: Temperature is 97.2, pulse is 82. Respirations 21, blood pressure is 150/71, oxygen saturation is 96%. HEENT: Patient is atraumatic, normocephalic. Cardiovascular: S1, S2. Respiratory: Has occasional rhonchi noted in the lung strauss. Abdomen: Obese, nontender. No masses felt. Extremities: No evidence of significant edema. He does have a darkish discoloration of both legs, evidence of stasis dermatitis. LABORATORY DATA: WBCs 9.46, hematocrit is 41.6 with a platelet count of 152. Sodium is 137, potassium 4.1, chloride 97, bicarb 31, BUN 27, creatinine is 1.1. X-ray of the chest shows bilateral small effusions. Lightest on the left. There is also stable left basilar atelectasis. ASSESSMENT AND PLAN: 1. Acute respiratory failure. Improved. Continue oxygen. Pulmonary following. 2. Chronic obstructive pulmonary disease, continue patient on nebulized bronchodilators, as well as steroids. 3. Hypothyroidism. Continue levothyroxine. 4. Atrial fibrillation. Continue rate controlling agent as well as Eliquis. 5. Hypertension. Continue current antihypertensive regimen. 6. Diabetes mellitus. Continue blood sugar monitor as well as sliding scale insulin. 7. Deep venous thrombosis prophylaxis. Patient is on Eliquis. 8. Gastrointestinal prophylaxis. Proton pump inhibitor. 9. Disposition: The patient will be going home with home health services. I do anticipate discharge in the next couple of days. The patient did not feel he is well enough to go home at this time and also indicates that his has been calling, been diagnosed with the flu infection. cc: Vikas Johansen MD
[2018-12-23] MEDS: LIPITOR PO SCH (22:23)
[2018-12-24] MEDS: DUONEB (A & A) INH SCH ×6 (03:52→23:05)
[2018-12-24] MEDS: APRESOLINE PO SCH ×3 (05:09→20:26)
[2018-12-24] MEDS: SYNTHROID PO SCH (06:09)
[2018-12-24] MEDS: HUMALOG SUBQ SCH ×4 (06:10→20:26)
--- NOTE | 2018-12-24 08:04 | Diag Imaging Result Doc PS360 ---
EXAM: CHEST-2 VIEWS HISTORY: abnormal exam TECHNIQUE: Chest two views COMPARISON: 12/23/2018 FINDINGS: The lungs are well expanded. The heart is not enlarged. The vessels are not distended. There are no infiltrates. There is a small left pleural effusion with basilar atelectasis versus scarring. IMPRESSION: Small left pleural effusion with basilar atelectasis versus scarring. Electronically signed by Reji Lea 12/24/2018 8:02 AM
[2018-12-24] MEDS: MIRALAX PO SCH (10:09)
[2018-12-24] MEDS: CARDIZEM PO SCH ×3 (10:10→16:52)
[2018-12-24] MEDS: LOPRESSOR PO SCH ×2 (10:10→20:26)
[2018-12-24] MEDS: LASIX PO SCH (10:10)
[2018-12-24] MEDS: ELIQUIS PO SCH ×2 (10:10→20:25)
[2018-12-24] MEDS: ALTACE PO SCH ×2 (10:10→20:25)
[2018-12-24] MEDS: PREDNISONE PO SCH (10:10)
[2018-12-24] MEDS: ASPIRIN PO SCH (10:10)
[2018-12-24] MEDS: LANOXIN PO SCH (10:10)
[2018-12-24] MEDS: LEVEMIR SUBQ SCH ×2 (10:11→20:24)
--- NOTE | 2018-12-24 12:01 | PROGRESS NOTE ---
DATE: 12/24/2018 SUBJECTIVE: Patient seen to be doing better. He is awake, alert. He is following commands. He is not complaining of chest pain, but he is complaining of a little bit of shortness of breath which as per the patient is chronic. He is able to walk at home with a walker and also a cane. He is on physical therapy here, and as per the patient, he has been doing good. We will continue with breathing treatment. We will continue with low-dose steroids. We will continue with the same management. Pulmonary Department following this patient. I will wait for recommendations. OBJECTIVE: Vital signs: Temperature 97.6 degrees, pulse 107, respiratory rate 20, blood pressure 154/87, oxygen saturation 97% on 4 L of nasal cannula. HEENT: Head normocephalic. No trauma. PERRLA. Neck: Supple. No JVD. No masses. Central trachea. Chest: Decreased breath sounds at the bases with some crackles, mostly on the left side, scattered, probably a faint expiratory wheezing at the bases as well. Abdomen: Soft, nontender, nondistended. No hepatosplenomegaly. Extremities: Trace edema. No clubbing. No cyanosis. It looks like he has a chronic venous stasis dermatitis which is sensitive to touch. Neurological: The patient is completely alert and oriented x3. No focal neurological deficits but generalized weakness. DIAGNOSTIC STUDIES: No lab work done today. ASSESSMENT AND PLAN: 1. Acute on chronic hypoxemic respiratory failure and acute hypercapnic respiratory failure. This patient uses oxygen at home, 4 L, and also he uses a CPAP machine to sleep. He was admitted to the hospital with influenza, and he received antibiotics for pulmonary infiltrates as well. I am not sure if he had a bacterial pneumonia on top of the influenza. For now, this patient is getting better. We will continue with the same management. Pulmonary Department on board. 2. Influenza A positive. Treated already with Tamiflu and breathing treatment. This patient is feeling better, and the treatment has been completed already. 3. Pleural effusion. Continue with the same management. He is on Lasix. 4. Atrial fibrillation, rate controlled. Continue with Eliquis as well. Continue with same management. 5. Hypothyroidism. Continue with levothyroxine. 6. Hypertension, stable. 7. Type 2 diabetes. Continue with pattern of blood sugar and sliding scale insulin. Also he has been placed on Levemir twice a day. 8. Gastroesophageal reflux disease (GERD). Continue PPIs. 9. Deep vein thrombosis (DVT) prophylaxis with Eliquis. 10. Physical deconditioning. Continue physical therapy. The patient has requested to go home with home health when possible. cc: Anselmo Laboy MD
[2018-12-24] MEDS: PROTONIX IV SCH (16:51)
[2018-12-24] MEDS: LIPITOR PO SCH (20:25)
--- NOTE | 2018-12-24 22:13 | PULMONOLOGY PROGRESS NOTE ---
DATE: 12/24/2018 SUBJECTIVE: The patient is awake, alert and conversant. He reports he ambulated with his walker the length of the hallway. He is tolerating p.o. intake. He is without new complaints. OBJECTIVE: The patient has been afebrile for the last 24 hours. Blood pressure 132/72, heart rate 83, respiratory rate 19, oxygen saturation 93% on nasal cannula. HEENT: Pupils are equal and reactive. Oropharynx is clear. Neck is supple. Chest reveals occasional rhonchi which clear with cough. Cardiac exam: S1, S2. Abdomen is obese and soft. Extremities reveal chronic venous insufficiency without significant edema. DIAGNOSTIC DATA: Chest x-ray reveals trace effusion at the left base with no significant pulmonary edema. No evidence of vascular engorgement. IMPRESSION: A 73-year-old with: 1. Acute hypoxemic respiratory failure, with mechanical ventilation due to influenza. 2. Obesity with cor pulmonale. 3. Acute hypoxemic respiratory failure. 4. Acute hypercapnic respiratory failure. 5. Small pleural effusions. DISCUSSION: The patient continues to improve as outlined above. He has completed his treatment for influenza. He was also treated with antibiotics in the event that he had a coinfection/pneumonia. These antibiotics have been discontinued. His ambulation continues to improve. RECOMMENDATIONS: 1. The patient can be discharged home or to rehab from a pulmonary standpoint. 2. The patient was encouraged to weigh himself daily and adjust p.o. intake and Lasix when he goes home. 3. The patient will need to have an outpatient sleep study. Please consider arranging this at the time of discharge. 4. Anticipate discharge in the near future. cc: Zac Blum MD
[2018-12-25] MEDS: DUONEB (A & A) INH SCH ×4 (03:49→16:20)
[2018-12-25] MEDS: APRESOLINE PO SCH ×2 (05:34→11:50)
[2018-12-25] MEDS: SYNTHROID PO SCH ×2 (05:34→06:20)
[2018-12-25] MEDS: HUMALOG SUBQ SCH ×2 (06:33→11:47)
[2018-12-25 07:29] LABS: AGAP 11; BUN 25 mg/dL (8-22); CHLORIDE 100 mmol/L (98-107); COSMO 288; CREATININE 1.1 mg/dL (0.7-1.2); ESTIMATED GFR > 60; GLUCOSE 141 mg/dL (70-104); POTASSIUM 4.5 mmol/L (3.5-5.1); SODIUM 141 mmol/L (136-145); TCO2 30 mmol/L (25-35)
[2018-12-25] MEDS: ALTACE PO SCH (09:59)
[2018-12-25] MEDS: LANOXIN PO SCH (09:59)
[2018-12-25] MEDS: LOPRESSOR PO SCH (09:59)
[2018-12-25] MEDS: LASIX PO SCH (09:59)
[2018-12-25] MEDS: ASPIRIN PO SCH (10:00)
[2018-12-25] MEDS: PREDNISONE PO SCH (10:00)
[2018-12-25] MEDS: LEVEMIR SUBQ SCH (10:00)
[2018-12-25] MEDS: CARDIZEM PO SCH ×2 (10:00→11:49)
[2018-12-25] MEDS: ELIQUIS PO SCH (10:00)
[2018-12-25] MEDS: MIRALAX PO SCH (10:01)
[2018-12-25 11:19] VITALS: BP 132/76
--- NOTE | 2018-12-25 21:31 | DISCHARGE SUMMARY ---
ADMISSION DATE: 12/13/2018 DISCHARGE DATE: 12/25/2018 DISCHARGE DIAGNOSES: 1. [id number] hypoxemic respiratory failure and acute hypercapnic respiratory failure, status post extubation. 2. Influenza A positive. 3. Pleural effusion. 4. Atrial fibrillation. 5. Hypothyroidism. 6. Hypertension. 7. Type 2 diabetes. 8. Gastroesophageal reflux disease. 9. Physical deconditioning and generalized weakness. 10. Obesity with a body mass index of 34.2. 11. History of bladder cancer. 12. History of cerebral aneurysm. 13. Obstructive sleep apnea. 14. History of coronary artery disease. 15. Hyperlipidemia. PROCEDURES PERFORMED: 1. Multiple x-rays, first one dated 12/13/2018 impression: Cardiomegaly and pulmonary vascular congestion; bilateral infiltrates suggesting pulmonary edema. 2. Echocardiogram dated 12/14/2018 that showed an ejection fraction of 55% and a pulmonary artery systolic pressure of 46 mmHg; atrial fibrillation; aortic valve leaflets are calcified, not well visualized; biatrial enlargement. HOSPITAL COURSE: A 73-year-old male admitted on 12/13/2018. He was discharged the previous month, at which time he was also intubated for [id number] respiratory failure. Prior to this hospitalization he was discharged on 11/15/2018. He also carries multiple other comorbidities, including chronic respiratory failure; severe COPD; morbid obesity; diabetes; history of bladder cancer; history of cerebral aneurysm; hypothyroidism; obstructive sleep apnea; chronic venous insufficiency; coronary artery disease; chronic atrial fibrillation; hyperlipidemia. Previously he was discharged to a rehab center and then he was sent home. Upon admission as per his 's report, the day before he started sneezing, upper respiratory congestion, cough and shortness of breath that had progressed into the morning. It looks like they were waiting to hear back from his PCP for recommendations but they decided to go to the emergency department because his breathing had gotten worse. He was not complaining of chest pain, fever, nausea or vomiting. He was supposed to be on a CPAP machine but he was unable to make a new appointment since last discharge, but he has a CPAP machine at home. In the emergency department his initial blood gas showed severe hypercapnic respiratory failure. Initially BiPAP was tried but was unsuccessful, and he was intubated. His x-ray showed pulmonary edema. EKG showed atrial fibrillation with RVR. He does have chronic atrial fibrillation, and he was transferred to the ICU. Pulmonary Department evaluated this patient. He received a flu screen that was positive for influenza A, so we started this patient on Tamiflu. We continued with broad-spectrum antibiotics per pulmonary infiltrates. We isolated the patient. We used breathing treatment including bronchodilators, oxygen, gastric acid suppression and DVT prophylaxis. Initially his prognosis was guarded. Cardiology also was consulted, and at the moment of the evaluation the heart rate was better controlled. Anticoagulation has been restarted. We followed the recommendations of Cardiology Department. Echocardiogram was done. He has been started also on Lasix due to his pulmonary edema. It looks like he was extubated around 12/15/2018 and placed on the BiPAP machine afterwards. We completed the treatment with Tamiflu. We continued with nocturnal BiPAP machine and they actually considered to use or ask for a Trilogy machine if the patient has difficulty with the BiPAP machine. We continued with diuresis. The patient was transferred to the floor. We will continue cycling the BiPAP machine as tolerated and we discontinued the antibiotics since the patient did have a bacterial pneumonia. His shortness of breath was improving on a daily basis. We continued with his maintenance dose of Lasix, which we switched from 20 p.o. twice a day to 40 daily. We continued with bronchial hygiene and physical therapy. Pulmonary Department has been evaluating this patient every single day, and their recommendations yesterday were that he can be discharged home or to a rehab from a pulmonary standpoint. The patient was encouraged to weigh himself daily and adjust his p.o. intake and Lasix when he goes home. The patient will need to have an outpatient sleep study. I personally called a sleep study center, and he will have an appointment next Sunday at 2 p.m. He will continue with his CPAP machine during the night. I do believe all this complication was because of his recent infection with influenza. Today I examined the patient. He was completely alert, awake and oriented x3. His was at the bedside. He was not complaining of shortness of breath. He was coughing on and off, but this is chronic as well. He will be discharged and he will see Dr. Blum on 01/07/2019 at 9 a.m. Also he will see Dr. Pan on 01/22/2019 at 9:45 a.m. Also he will get a sleep study and initial consult with Dr. Vazquez for that appointment on 12/31/2018 at 2 p.m. OBJECTIVE: Vital signs: Temperature 97.7 degrees, pulse 76, respiratory rate 18, blood pressure 132/76, oxygen saturation 99% on 4 L of nasal cannula. HEENT: Head normocephalic. No trauma. PERRLA. Neck supple. No JVD. No masses. Central trachea. Chest: Decreased breath sounds at the bases with some crepitus, mostly on the left side. No wheezing. Abdomen is soft, nontender, nondistended. No hepatosplenomegaly. Extremities: Trace edema. No clubbing. No cyanosis. He does have some chronic venous stasis dermatitis which is sensitive to touch. Neurological examination: The patient is completely alert and oriented x3. No focal neurological deficits. LABORATORY DATA: Sodium 141, potassium 4.5, chloride 100, bicarbonate 30, BUN 25, creatinine 1.1, glucose 141, calcium 9. DISCHARGE MEDICATIONS: 1. Spiriva 1 puff inhaler daily. 2. Ramipril 10 mg p.o. b.i.d. 3. Montelukast sodium 10 mg p.o. q.a.m. 4. Dulera 200 mcg/5 mcg inhaler 2 puff inhaler b.i.d. 5. Synthroid 75 mcg p.o. daily. 6. [place] 5 one tablet p.o. at bedtime as needed. 7. Docusate 100 mg p.o. b.i.d. as needed for constipation. 8. Diltiazem CD 240 mg p.o. daily. 9. Digoxin 250 mcg p.o. daily. 10. Atorvastatin 20 mg p.o. q.a.m. 11. Aspirin 81 mg p.o. q.a.m. 12. Apixaban 5 mg p.o. b.i.d. 13. Albuterol sulfate 8.5 g inhaler q.4 hours as needed for shortness of breath. 14. Prednisone 5 mg p.o. daily. 15. Insulin lispro, continue with the same dose at home. 16. MiraLAX 17 g p.o. daily. 17. Metoprolol 50 mg p.o. b.i.d. 18. Levemir 30 units subcutaneously b.i.d. 19. Hydralazine 25 mg p.o. q.8 hours. 20. Furosemide 40 mg p.o. daily. Time discharging this patient was 50 minutes. cc: Anselmo Laboy MD
== END 2018-12-25 15:42 | disposition home health service (06) | DRG 208 ==
LOC: ED 13:46 → SUATTDRO 17:19 → ICU 17:19 → 3N 12-17 18:15
PROVIDERS: ATTEND Internal Medicine
CPT/HCPCS: 31500; 51702; 71010; 71020; 71045; 71046; 80048; 80053; 81001; 82550; 82805; 82948; 83605; 83735; 83880; 84145; 84443; 84484; 85025; 85610; 85730; 87040; 87070; 87205; 87275; 87276; 87804; 93005; 93306; 94003; 94640; 94660; 94761; 94799; 96365; 96366; 96367; 96375; 96376; 97110; 97116; 97162; 97530; 99285; 99291; A9270; C9113; J0330; J0360; J0696; J1160; J1650; J1815; J1940; J2020; J2060; J2270; J2543; J2930; J7030; J7040; J7506; J7512; S0164; XXXXX